=== PATIENT | female | born 1950 | race Caucasian/White ===

== ENCOUNTER → 2016-05-29 | Outpatient (CLI) | payer BC ==
[~2016-05-29] VITALS: Ht 154.9 cm; Wt 69.4 kg
[~2016-05-29] MED LIST: ASPIRIN325 PO; BACTRIM DS TAB1 EACH PO; CELEBREX 200 M200 MG PO; DYRENIUM100 MG PO; FELDENE20 MG PO; FLEXERIL PO; LISINOPRIL10 MG PO; LISINOPRIL5 MG PO; OXYCODONE HCL E10 MG PO; OXYCODONE-ACET1 EACH PO; PERCOCET 5-3251 EACH PO; PERCOCET 7.5-31 EACH PO; PIROXICAM20 MG PO; PREMARIN PO; PREMARIN0.9 MG PO; TRIAMTERENE-HC1 EAC1 PO; VYTORIN 10-401 EACH PO; VYTORIN 10-801 EACH PO; WELCHOL 625 MG625 M1 PO; WELCHOL 625 MG625 MG PO
--- NOTE | ~2016-05-29 | HPC ---
[facility] [address] [place] [address] PAIN MANAGEMENT CONSULTATION Name: ALIREZA CAMARGO Room #: REG Jose Alejandro.#: [id number] Admission: 05/29/16 Attend Phys: Bernardino Mir MD Discharge: Date of : 54 Report #: [id number] THIS REPORT FOR: //name// CC: James Morrow DATE OF SERVICE: 05/29/2016 FOLLOWUP COMPLAINT: "The pain in my arm and down into my finger, which resolved. I am having pain down my leg again and I am going on vacation to [place]." FOLLOWUP HISTORY: The patient is a 65-year-old female who has been seen in the pain clinic in the past because of lumbar radiculopathy and recently had an episode of cervical radiculopathy, which improved after a cervical epidural steroid injection. She continues to have pain and discomfort in the low back area with pain radiating down into her legs. She is having difficulty sleeping. She sleeps sitting in a chair at home because of the pain and discomfort, which affects her low back and radiates down into her right leg and involves her right foot. In the past, epidural steroid injections have been quite helpful in decreasing her pain and discomfort and enabling her to carry on activities of daily living without as much discomfort. She rates her pain today as a 9/10. This is because of the pain in the right hip, down in the right foot and would like to proceed with a lumbar epidural steroid injection given the fact that she is going on vacation in [place] in the next week. PHYSICAL EXAMINATION: Blood pressure was 144/89, pulse 65, respiratory rate 20, room air saturation is 100%. IMPRESSION: 1. Improved cervical radiculopathy with resolution of numbness and tingling in the right arm and right middle finger after cervical epidural steroid injection. 2. Lumbar radiculopathy with pain radiating down into the right leg with numbness, weakness, and tingling and rated at a 9/10. RECOMMENDATIONS: We will proceed with an epidural steroid injection. Risks and benefits of the procedure were again reviewed. The patient elects to proceed. PROCEDURE NOTE: The patient was placed in the prone position. Fluoroscopy was used to identify the L4/L5 interspace. This area had been sterilely prepped with Betadine and infiltrated with 0.25% bupivacaine. A total of 80 mg Depo-Medrol, 40 mg triamcinolone and 2 mL of 0.25% bupivacaine was injected. The patient tolerated the procedure well. There were no complications. About 10 seconds of fluoroscopy time was used. The patient rated her pain as 0 at the time of discharge. Hopefully, she will have a good vacation. [address] [address] PAIN MANAGEMENT CONSULTATION Name: ALIREZA CAMARGO Room #: REG CLI Ashley#: [id number] Admission: 05/29/16 Attend Phys: Bernardino Mir MD Discharge: Date of : 54 Report #: [id number] We would like to thank you for letting us participate in her care. We hope she continues to improve. <ELECTRONICALLY SIGNED> By: Bernardino Mir MD 06/23/16 1018 1530 2044 Bernardino Mir MD /nt
[2016-05-29 13:04] VITALS: BP 144/89
== END ==
LOC: PAIN 07:07
DX: M54.16 Radiculopathy, lumbar region (principal)

== ENCOUNTER → 2016-08-14 | Outpatient (CLI) | payer BC ==
[~2016-08-14] VITALS: Ht 154.9 cm; Wt 67.1 kg
[~2016-08-14] MED LIST changes: +ALEVE PM CAPLE1 EACH PO
--- NOTE | ~2016-08-14 | HPC ---
[facility] [place] [address] [address] [place] [address] PAIN MANAGEMENT CONSULTATION Name: ALIREZA CAMARGO [id number] Admission: 08/14/16 Attend Phys: Bernardino Mir MD Discharge: Date of : 54 Report #: [id number] THIS REPORT FOR: //name// CC: James Morrow DATE OF SERVICE: 08/14/2016 FOLLOWUP COMPLAINT: My right arm and shoulder are really hurting. FOLLOWUP HISTORY: The patient is a 65-year-old female who has been seen in the pain clinic in the past because of lumbar radiculopathy. She has noticed pain and discomfort in her right arm. It radiates down from the anterior deltoid as well as in the middle deltoid area. She is able to lift her arm and moves it around, but notes a significant pain. She states that she lies on the bed at night with her right arm propped over pillow. She does have some difficulty sleeping because of the pain and discomfort. She rates it as a 10/10 at this point. She is still having pain and discomfort in the lower back area, but feels that this pain is overwhelmingly more uncomfortable within that and her lower back. She had a good time when she went on her vacation. This was the first vacation of her life, this was in [place]. She was quite pleased with it. PHYSICAL EXAMINATION: Blood pressure 130/92, pulse 82, respiratory rate 14, room air saturation is 97%. The patient has pain and discomfort in the anterior portion of her right shoulder and area of the long head of the biceps. Palpation in this area causes pain and discomfort which she states is a great portion of the pain she is experiencing. She also has pain and discomfort in the insertion of the deltoid on the humerus on the right side. Palpation in this area reproduces pain and discomfort as well. IMPRESSION: 1. Right shoulder pain in the anterior portion near the insertion of the long head of the biceps. Pain and discomfort in the deltoid area in its insertion on the humerus. RECOMMENDATIONS: We discussed treatment options with the patient. Risks and benefits of an injection were discussed. The patient feels that she would like to undergo an injection. 2. Lumbar radiculopathy reasonably stable at this juncture. RECOMMENDATIONS: We will proceed with a trigger point injection to the deltoid insertion along the humerus as well as in the area of the long head of the biceps tendon on the right. [address] [address] PAIN MANAGEMENT CONSULTATION Name: ALIREZA CAMARGO Room #: REG [facility]#: [id number] Admission: 08/14/16 Attend Phys: Bernardino Mir MD Discharge: Date of : 54 Report #: [id number] PROCEDURE NOTE: These areas were both sterilely prepped with a chlorhexidine solution. They were allowed to dry. Sterile technique was used to inject 10 mL of 0.5% bupivacaine and 40 mg triamcinolone on the deltoid/humerus area. The area of the insertion of the biceps tendon was injected with 10 mL of 0.5% bupivacaine and 40 mg triamcinolone. The patient tolerated the procedure well. Her pain decreased to 0 at the time of discharge. She will follow up in the future as needed. We would like to thank you for letting us participate in her care. We hope she continues to improve. By: 1555 00 Bernardino Mir MD /nt
[2016-08-14 09:15] VITALS: BP 130/92
== END ==
LOC: PAIN 06:47
DX: M25.511 Pain in right shoulder (principal); M54.16 Radiculopathy, lumbar region

== ENCOUNTER → 2016-10-14 | Outpatient (CLI) | payer BC ==
[~2016-10-14] VITALS: Ht 154.9 cm; Wt 65.3 kg
--- NOTE | ~2016-10-14 | HPC ---
[facility] [place] [address] [place] [address] PAIN MANAGEMENT CONSULTATION Name: ALIREZA CAMARGO Room #: REG [facility]#: [id number] Admission: 10/14/16 Attend Phys: Bernardino Mir MD Discharge: Date of : 54 Report #: [id number] THIS REPORT FOR: //name// CC: DIEGO Hassan DATE OF SERVICE: 10/14/2016 FOLLOWUP COMPLAINT: "My pain has really been bad over the last few weeks. I am having trouble sleeping and it is going down into my leg on the left and right side." FOLLOWUP HISTORY: The patient is a 66-year-old female who has been followed in the pain clinic because of lumbar radiculopathy. She greater than 50% improvement after epidural steroid injections. The last one she had was in May. At this juncture, she has noted some pain and discomfort, which has become more problematic. She is having difficulty sleeping and engaging in activities of daily living. She notes pain and discomfort radiating down into her right leg, lateral thigh and down into the calf. She is unable to sleep. She has been waking at night she tries to go sleep. She feels that her pain medications are of little benefit at this juncture secondary to the severity of her pain. PHYSICAL EXAMINATION: Blood pressure is 126/85, pulse 76, respiratory rate 16, room air saturation is 98%. Height 5 feet 1 inch, weight is 65 kilograms, BMI 27.2. The patient has pain and discomfort in the right leg radiating down into the calf and involving her foot. She also has some pain radiating into the left buttocks. IMPRESSION: 1. Exacerbation of lumbar radicular pain, which generally improves greater than 50% after epidural steroid injections. 2. Right shoulder pain, improved. RECOMMENDATIONS: We discussed treatment options with the patient. Risks and benefits of the procedure were explained. Possible complications were discussed. The patient elects to proceed. PROCEDURE NOTE: The patient was placed in the prone position. 0.25% bupivacaine was infiltrated. A 17-gauge Tuohy with loss of resistance technique was used to gain access to the epidural space. There was no CSF, heme or paresthesia. Total of 80 mg Depo-Medrol, 40 mg triamcinolone and 2 mL of 0.25% bupivacaine was injected. The patient tolerated the procedure well. There were [address] [address] PAIN MANAGEMENT CONSULTATION Name: ALIREZA CAMARGO Room #: REG CLJose DocSánchezSuzanne#: [id number] Admission: 10/14/16 Attend Phys: Bernardino Mir MD Discharge: Date of : 54 Report #: [id number] no complications. We would like to thank you for letting us participate in her care. We hope she continues to improve. By: [id number] MD dayday Palmer
[2016-10-14 11:08] VITALS: BP 128/85
== END | disposition home or self-care (01) ==
LOC: PAIN 06:23
DX: M54.16 Radiculopathy, lumbar region (principal); M25.511 Pain in right shoulder

== ENCOUNTER → 2016-11-20 | Outpatient (CLI) | payer BC ==
[~2016-11-20] VITALS: Ht 154.9 cm; Wt 65.3 kg
[~2016-11-20] MED LIST changes: +NORCO 10-325 T1 EACH PO
[2016-11-20 09:51] VITALS: BP 141/89
== END | disposition home or self-care (01) ==
LOC: PAIN 06:54
DX: M54.16 Radiculopathy, lumbar region (principal); M25.511 Pain in right shoulder

== ENCOUNTER → 2016-12-02 | Outpatient (CLI) | payer BC ==
[~2016-12-02] VITALS: Ht 154.9 cm; Wt 63.1 kg
[2016-12-02 13:10] VITALS: BP 128/89
== END | disposition home or self-care (01) ==
LOC: PAIN 07:22
DX: M79.1 Myalgia (principal); G89.29 Other chronic pain; M54.16 Radiculopathy, lumbar region; M25.511 Pain in right shoulder; Z98.890 Other specified postprocedural states; Z79.899 Other long term (current) drug therapy

== ENCOUNTER → 2017-01-20 | Outpatient (CLI) | payer BC ==
[~2017-01-20] VITALS: Ht 154.9 cm; Wt 66.2 kg
--- NOTE | ~2017-01-20 | HPC ---
[facility] [place] [address] [address] PAIN MANAGEMENT CONSULTATION Name: ALIREZA CAMARGO Room #: [facility] [id number] Admission: 01/20/17 Attend Phys: Bernardino Mir MD Discharge: Date of : 54 Report #: [id number] THIS REPORT FOR: //name// CC: James Morrow DATE OF SERVICE: 01/20/2017 FOLLOWUP COMPLAINT: I have got some pain, going down into my right leg. I have had more pain after going to physical therapy. FOLLOWUP HISTORY: The patient is a 66-year-old female who has been seen in the pain clinic because of myofascial pain. She also has lumbar radicular pain. Epidural steroid injections in the past have been helpful. She has going to physical therapy. She feels that on occasions have worsened her pain doing certain exercises. She is going to refrain from doing them for a while to see if things improve. She denies any bowel or bladder dysfunction. Continues to have pain and discomfort in the right low back area with radiation down into the right leg. She has some discomfort in the lateral area of the iliotibial band as well as some discomfort down the lateral portion of her calf. PHYSICAL EXAMINATION: Blood pressure 159/81, pulse 69, respiratory rate 16, room air saturation is 100, height 5 feet 1, weight 145 pounds, BMI is 27. The patient has pain and discomfort which is radiating down to right buttocks into the right leg in the L4-L5 distribution. There is some tenderness with palpation along the lateral portion of her leg in the area of the iliotibial band. IMPRESSION: History of lumbar radiculopathy with exacerbation of the lumbar radicular pain down into the L4-L5 dermatomal reach end of her right leg. RECOMMENDATIONS: We discussed treatment options with the patient. Risks and benefits of an epidural steroid injection were again reviewed. Possible complications were explained. The patient elects to proceed. PROCEDURE NOTE: The patient was placed in the prone position. Fluoroscopy was used to identify the L4-L5 interspace. This area had been sterilely prepped and infiltrated with 0.25% bupivacaine. Total of 80 mg Depo-Medrol, 40 mg triamcinolone and 2 mL of 0.25% bupivacaine was injected. The patient's pain decreased from 10-3 at the time of discharge. She will call us if she has any problems with her treatment. A total of 8 seconds fluoroscopy time was used. [address] [address] PAIN MANAGEMENT CONSULTATION Name: ALIREZA CAMARGO [facility] [id number] Admission: 01/20/17 Attend Phys: Bernardino Mir MD Discharge: Date of : 54 Report #: [id number] We would like to thank you for letting us participate in her care. We hope she continues to improve. By: 1244 [id number] Bernardino Mir MD /
[2017-01-20 08:17] VITALS: BP 159/81
== END ==
LOC: PAIN 06:51
DX: M54.16 Radiculopathy, lumbar region (principal)

== ENCOUNTER → 2017-04-23 | Outpatient (CLI) | payer BC ==
[~2017-04-23] VITALS: Ht 154.9 cm; Wt 60.8 kg
[~2017-04-23] MED LIST changes: +ETODOLAC500 MG PO
--- NOTE | ~2017-04-23 | HPC ---
[facility] [place] [address] [place] [address] PAIN MANAGEMENT CONSULTATION Name: ALIREZA CAMARGO Room #: REG [facility] Javon.#: [id number] Admission: 04/23/17 Attend Phys: Bernardino Mir MD Discharge: Date of : 54 Report #: [id number] THIS REPORT FOR: //name// CC: James Morrow DATE OF SERVICE: 04/23/2017 FOLLOWUP COMPLAINT: Return of pain in the lower portion of the back with pain radiating down into the right leg, numbness, weakness, and tenderness. FOLLOWUP HISTORY: The patient is a 66-year-old female, who has been followed in the pain clinic. As you may recall, she suffers from chronic pain involving lumbar radiculopathy. She generally does pretty well. She has been experiencing more pain in the last few weeks. She rates it as an 8/10. It is in her lower back with "wraps around" the front of both of her thighs, but most problematic on the right leg and down into the ramos. She has some bilateral buttocks and thigh discomfort as well. PHYSICAL EXAMINATION: Blood pressure is 107/80, pulse 96, respiratory rate 16, room air saturation is 96%. Height 5 feet 1 inch, weight 134 pounds, BMI is 25. The patient has not fallen since we saw her last. IMPRESSION: 1. History of lumbar radiculopathy with exacerbation of lumbar radicular pain. 2. History of myofascial pain. 3 History of right shoulder pain. RECOMMENDATIONS: We discussed treatment options with the patient. Risks and benefits of an epidural steroid injection were again reviewed. Possible complications were discussed. The patient elects to proceed with a lumbar epidural steroid injection for pain radiating down the lower portion of her back into the L5-S1 distribution primarily on the right. PROCEDURE NOTE: The patient was placed in the prone position. Fluoroscopy was used to identify the L4-L5 interspace. This area had been sterilely prepped with Betadine. 0.25% bupivacaine was infiltrated. A 17-gauge Tuohy with loss of resistance technique was used to gain access to the epidural space. There was no CSF, heme or paresthesia. Total of 80 mg Depo-Medrol, 40 mg triamcinolone, and 2 mL of 0.25% bupivacaine was injected. The patient's pain decreased from 8-5. Total of 12 seconds fluoroscopy time was used. <ELECTRONICALLY SIGNED> By: Bernardino Mir MD 05/06/17 0945 1246 1812 Bernardino Mir MD /QUENTIN
[2017-04-23 08:48] VITALS: BP 107/80
== END | disposition home or self-care (01) ==
LOC: PAIN 07:00
DX: M54.16 Radiculopathy, lumbar region (principal); G89.29 Other chronic pain; M79.1 Myalgia; M25.511 Pain in right shoulder; Z79.899 Other long term (current) drug therapy; Z79.891 Long term (current) use of opiate analgesic

== ENCOUNTER → 2017-06-18 | Outpatient (CLI) | payer BC ==
[~2017-06-18] VITALS: Ht 154.9 cm; Wt 59.9 kg
[~2017-06-18] MED LIST changes: +CYMBALTA60 MG PO; +EZETIMIBE-SIMV1 EAC3 PO; +IBUPROFEN 800800 M1 PO; +LISINOPRIL-HCT1 EACH PO; +PERIDEX 0.12%473 M1 TP; +XTAMPZA ER9 MG PO
--- NOTE | ~2017-06-18 | HPC ---
[facility] [place] [address] [place] [address] PAIN MANAGEMENT CONSULTATION Name: ALIREZA CAMARGO Room #: REG [facility] Javon.#: [id number] Admission: 06/18/17 Attend Phys: Bernardino Mir MD Discharge: Date of : 54 Report #: [id number] THIS REPORT FOR: //name// CC: James Morrow DATE OF SERVICE: 06/18/2017 CHIEF COMPLAINT: Low back pain that wraps around the front and down into the hip involving both legs in the back to the knees and down into the calves. FOLLOWUP HISTORY: The patient is a 66-year-old female who has been seen in the pain clinic because of lumbar radiculopathy. She also suffers from myofascial pain. She has returned today indicating that her pain has increased. She is having pain and discomfort in the lower portion of her back. Some of the pain radiates down into the groin area and bilaterally down into her hips. Pain which is most disconcerting is that radiating down into both legs to the level of the knee and the lateral aspects of her cast. She feels that this is a 10/10 pain. It is significantly curtailing her ability to engage in activities of daily living. She has returned today for an epidural steroid injection, which has been helpful in the past. Notes that her pain is exacerbated by walking, standing and even sitting. It improves somewhat by repositioning and has improved in the past with epidural steroid injections. She has no new bowel or bladder dysfunction issues. She has returned today for an injection. She finds that her medications continue to be helpful as well. ALLERGIES: No known drug allergies. MEDICATIONS: Reviewed are oxycodone 5/325 one p.o. t.i.d. as needed, etodolac 500 mg b.i.d., oxycodone ER 10 one p.o. b.i.d., Feldene 20 mg daily p.r.n., lisinopril 5 mg daily, Vytorin 10/40 mg daily. PAIN CLINIC ASSESSMENT: 1. History of osteoarthritis. The patient is not being treated for osteoarthritis or Rheumatoid arthritis by a specialist. 2. Height 5 feet 1 inch, weight 132 pounds, BMI is 25. 3. Vital Signs: Blood pressure 109/73, pulse 103, respiratory rate 18, room air saturation 97%. Pain intensity 10/10 4. Fall risk. The patient has not fallen in the last 3 months. She did slip on a wet floor while getting out of the shower. She did not go to see the doctor. She fell on 07/10 back in 2015. 5. The patient is not on blood thinner. 6. History of hypertension. She has been treated for hypertension. 7. Opioid therapy greater than 6 weeks. The patient has an opioid [place] [address] PAIN MANAGEMENT CONSULTATION Name: ALIREZA CAMARGO Room #: REG CARLOTTA Ramirez#: [id number] Admission: 06/18/17 Attend Phys: Bernardino Mir MD Discharge: Date of : 54 Report #: [id number] 8. Risk assessment, low risk 0. 9. Functional assessment tool 52/70 indicating some problems with activities of daily living because of the pain. 10. Recreational drug use. The patient denies use of recreational drugs. Tobacco: The patient has never smoked. Alcohol: The patient denies use of alcoholic beverages. PHYSICAL EXAMINATION: GENERAL: The patient is a well-developed white female. Appearance, age appropriate. Orientation: The patient is alert and oriented x 3. Affect: The patient's affect appears appropriate. HEENT: Normocephalic, atraumatic. Extraocular eye muscles intact. Moist buccal membranes. NECK: Without adenopathy. EXTREMITIES: Upper extremity strength is judged to be 5/5 for the major muscle groups of the upper extremity with symmetry. HEART: Clear to auscultation. Regular rate. ABDOMEN: Nontender. MUSCULOSKELETAL: The patient has some soreness in the low back area. She is having some pain and discomfort in the legs bilaterally. Feels that most of her pain and discomfort is in the L3-L4 distribution. Feels that she would like to undergo an epidural steroid injection to help quell that particular pain. Muscle bulk in the lower extremities, judged to be 5/5. The patient has pain and discomfort in the L4-L5 dermatomal distribution, which is the most problematic today. Again, that was L3-L4 that is most problematic today. IMPRESSION: 1. History of lumbar radiculopathy. Oftentimes, radiating down the L4-L5 lumbar distribution, more in the L3-L4 distribution today. We will proceed with an epidural steroid injection to help decrease the pain in this area. 2. History of Myofascial pain. 3. History of right shoulder pain. 4. Hypertension. RECOMMENDATIONS: We will proceed with a lumbar epidural steroid injection in the L2-L3 and L3-L4 distribution. Risks and benefits of the procedure were discussed with the patient. Possible complications were reviewed. They include but are not limited to infection, increased muscle soreness, headache, bleeding, worsening of pain, no improvement in pain, nerve trauma, or spinal headache. The patient was then taken to the procedure area. PROCEDURE NOTE: The patient was placed in the prone position. After appropriate positioning 0.25% bupivacaine was used to target the L3-L4 interspace. This area had been sterilely prepped with Betadine and infiltrated with 0.25% bupivacaine. Total of 80 mg Depo-Medrol, 40 mg triamcinolone, and 2 mL of 0.25% bupivacaine was injected. The patient tolerated the procedure well. [address] [address] PAIN MANAGEMENT CONSULTATION Name: MARY JOALIREZA CLAUDY Room #: REG CLI [facility]#: [id number] Admission: 06/18/17 Attend Phys: Bernardino Mir MD Discharge: Date of : 54 Report #: [id number] There were no complications. She remained in the pain clinic for an appropriate amount of time. She will follow up in the future as needed. We would like to thank you for letting us participate in her care. We hope she continues to improve. <ELECTRONICALLY SIGNED> By: Bernardino Mir MD 08/13/17 0823 1632 [id number] Bernardino Mir MD /QUENTIN
[2017-06-18 12:38] VITALS: BP 109/73
== END | disposition home or self-care (01) ==
LOC: PAIN 06:54
DX: M54.16 Radiculopathy, lumbar region (principal); M79.1 Myalgia; M25.511 Pain in right shoulder; I10 Essential (primary) hypertension; Z79.891 Long term (current) use of opiate analgesic; Z79.899 Other long term (current) drug therapy

== ENCOUNTER → 2017-10-22 | Outpatient (CLI) | payer OTHER ==
[~2017-10-22] VITALS: Ht 154.9 cm; Wt 64.9 kg
[~2017-10-22] MED LIST changes: -IBUPROFEN 800800 M1 PO
--- NOTE | ~2017-10-22 | HPC ---
[facility] [place] [address] PAIN MANAGEMENT CONSULTATION Name: ALIREZA CAMARGO Room #: REG CARLOTTA Javon.#: [id number] Admission: 10/22/17 Attend Phys: Bernardino Mir MD Discharge: Date of : 54 Report #: [id number] THIS REPORT FOR: //name// CC: James Morrow DATE OF SERVICE: 10/22/2017 FOLLOWUP COMPLAINT: Here for medication renewal. The insurance company want to continue to pay for my OxyContin. FOLLOWUP HISTORY: The patient is a 67-year-old female who has been followed in the pain clinic because of chronic pain. She has pain and discomfort because of lumbar radiculopathy. She has undergone epidural steroid injections and finds these are beneficial. Has pain that radiates down into the L4-L5 distribution. She finds that use of OxyContin has been beneficial as well. She has gotten a letter from her insurance company indicating that they would no longer cover OxyContin. She has been given an alternative medication of Xtampza to try. She has returned today for a prescription for this medication. Finds that the oxycodone/Tylenol continued to be helpful. She takes these medications as prescribed. ALLERGIES: No known drug allergies. CURRENT MEDICATIONS: Oxycodone 5/325 one p.o. t.i.d., etodolac 500 mg b.i.d., oxycodone ER 10 mg 1 p.o. b.i.d., Feldene 20 mg daily p.r.n., Lasix, lisinopril 5 mg daily, Vytorin 40 mg/40 mg daily. PAIN CLINIC ASSESSMENT: 1. The patient is not being treated for osteoarthritis or rheumatoid arthritis. 2. Height 5 feet 1 inch, weight 143 pounds, BMI is 24. 3. Vital signs: Blood pressure 131/80, pulse 85, respiratory rate 16, room air saturation is 96%. 4. Pain intensity 12/24. 5. Fall risk. The patient has not fallen in the last 3 months. 6. Blood thinner. The patient is not on a blood thinning medication. 7. History of hypertension. The patient is being treated for hypertension. 8. Opioid therapy greater than 6 weeks. The patient is on an opioid contract with the pain clinic and gets her medication from one source. 9. Risk assessment tool, low risk of 0. 10. Functional assessment tool 52/70 showing moderate impact of pain on her activities of daily living. 11. Recreational drug use. The patient denies use of recreational drugs. 12. Tobacco: The patient has never smoked. 13. Alcohol: The patient denies use of alcoholic beverages. [address] [address] PAIN MANAGEMENT CONSULTATION Name: ALIREZA CAMARGO CLAUDY Room #: REG CLI [facility].#: [id number] Admission: 10/22/17 Attend Phys: Bernardino Mir MD Discharge: Date of : 54 Report #: [id number] PHYSICAL EXAMINATION: GENERAL: The patient is a well-developed, well-nourished white female. She appears her stated age. She is alert and oriented x 3. Her affect is appropriate. HEENT: Normocephalic, atraumatic. Extraocular eye muscles intact. Sclerae nonicteric. Mucous membranes are moist. Hearing is within normal limits. NECK: Without adenopathy or JVD. CHEST: Clear to auscultation. ABDOMEN: Nontender. HEART: Regular rate. S1, S2. MUSCULOSKELETAL: The patient has some soreness in the lower portion of her back. Has some pain that radiates down posterior portion of her legs in the L4-L5 distribution. Muscle strength is judged to be 5/5 with symmetry. There is no significant scoliosis, kyphosis or lordosis in the back. IMPRESSION: 1. History of lumbar radiculopathy treated with epidural steroid injections and complex medical management using opioids. 2. Myofascial pain. 3. History of right shoulder pain. 4. Hypertension. RECOMMENDATIONS: We discussed treatment options with the patient. Overall, she feels that her medications are helpful. Finds that the OxyContin is beneficial. The patient received an information from her insurance company that she should try a different medication. She will try Xtampza, which is an opioid product. It is similar to OxyContin. She will be given a script for this medication. She will try it over the next month. Hopefully, she finds that this medication works as well as OxyContin. We would then reevaluate the situation in a month. If she finds that it is working reasonably well, we would convert her to this medication. If not, we will try the next alternative that her insurance company has proposed. We would like to thank you for letting us participate in her care. We hope she continues to improve. <ELECTRONICALLY SIGNED> By: Bernardino Mir MD 10/27/17 [id number] Bernardino Mir MD /QUENTIN
[2017-10-22 11:40] VITALS: BP 131/80
== END ==
LOC: PAIN 07:09
DX: G89.29 Other chronic pain (principal); M54.16 Radiculopathy, lumbar region; I10 Essential (primary) hypertension; M79.1 Myalgia; F11.90 Opioid use, unspecified, uncomplicated

== ENCOUNTER → 2017-11-19 | Outpatient (CLI) | payer OTHER ==
[~2017-11-19] VITALS: Ht 154.9 cm; Wt 64.0 kg
--- NOTE | ~2017-11-19 | HPC ---
[facility] [place] [address] PAIN MANAGEMENT CONSULTATION Name: ALIREZA CAMARGO [facility] #: [facility] [id number] Admission: 11/19/17 Attend Phys: Bernardino Mir MD Discharge: Date of : 54 Report #: [id number] THIS REPORT FOR: //name// CC: James Mir DATE OF SERVICE: 11/19/2017 FOLLOWUP COMPLAINT: "Here for treatment. I have pain in the right leg." FOLLOWUP HISTORY: The patient is a 67-year-old female who has been followed in the Pain Clinic. She suffers from lumbar radiculopathy and has undergone epidural steroid injections in the past. At this juncture, she is noticing pain that radiates from her low back to the left hip area. Palpation of the left hip area can cause significant pain and discomfort and reproduces her discomfort. She feels that her current medications of Percocet and Xtampza are helpful. She does tolerate them reasonably well and would like to continue with her medications. She would like to have the prescription renewed today. ALLERGIES: No known drug allergies. CURRENT MEDICATIONS: Oxycodone 5/325s one p.o. t.i.d., etodolac 500 mg b.i.d., Xtampza 9 mg, Feldene 20 mg daily, Lasix, lisinopril 5 mg, Vytorin 40 mg. PAIN CLINIC ASSESSMENT: 1. The patient is not being treated for osteoarthritis or rheumatoid arthritis. 2. Height 5 feet 1 inch, weight 141 pounds, BMI is 26. 3. Vital Signs: Blood pressure 159/96, pulse 68, respiratory rate 14, room air saturation 98%. 4. Pain intensity: 8/10. 5. Fall risk: The patient has not fallen in the last 3 months. 6. Blood thinner: The patient is not on a blood thinning medication. 7. Hypertension: The patient is being treated for hypertension. 8. Opioid therapy greater than 6 weeks: The patient is receiving her medications from the Pain Clinic and has signed a contract. 9. Risk assessment tool: Low for use of opioid medication. 10. Functional assessment tool: 52/70 in the past. 11. Recreational drugs: Denies use of recreational drugs. 12. Tobacco: The patient denies use of tobacco. 13. Alcoholic beverages: The patient denies use of alcoholic beverages. PHYSICAL EXAMINATION: GENERAL: The patient is a well-developed white female. She appears her stated age. She is alert and oriented x 3. She appears stable. Her affect is appropriate. HEENT: Normocephalic, atraumatic. Extraocular eye muscles [place] [address] PAIN MANAGEMENT CONSULTATION Name: ALIREZA CAMARGO Room #: REG CLJose Ramirez#: [id number] Admission: 11/19/17 Attend Phys: Bernardino Mir MD Discharge: Date of : 54 Report #: [id number] nonicteric. Mucous membranes are moist. Hearing is within normal limits. NECK: Without adenopathy or JVD. Good range of motion. CHEST: Clear to auscultation. ABDOMEN: Nontender. HEART: Rate S1, S2. MUSCULOSKELETAL: The patient has some soreness in the right greater trochanteric area as well as some pain and discomfort in the lower portion of her gluteus caryl. Palpation in this area does reproduce the patient's pain when she is lying in the left decubitus position. The patient states that this is a large component of the pain and discomfort she is experiencing at this point. IMPRESSION: 1. Right greater trochanteric bursitis. 2. History of lumbar radicular pain, treated with epidural steroid injection. 3. Complex medical management, using opioids. 4. Myofascial pain. 5. Right shoulder pain. 6. Hypertension. RECOMMENDATIONS: We discussed treatment options with the patient. At this juncture, we will continue with her current medications. She feels that the conversion to Xtampza is adequate. She is taking the medication as prescribed. She is having no problems with them. She does note some pain and discomfort in the right greater trochanteric area. Palpation reproduces that discomfort. The patient would like to proceed with an injection of the greater trochanteric bursa. We discussed treatment options with the patient. Risks and benefits of the procedure were explained. Possible complications of the procedure, which could include infection, worsening of pain, no improvement in pain were discussed. The patient elects to proceed given her pain is quite problematic. PROCEDURE NOTE: The patient was placed in the left lateral decubitus position. The right trochanteric area was sterilely prepped with a chlorhexidine solution and allowed to dry. A 25-gauge spinal needle was then advanced into the area of the right greater trochanteric bursa. The patient states that this did reproduce her discomfort. A total of 10 mL of 0.5% bupivacaine and 80 mg Depo-Medrol was injected. The patient tolerated the procedure well. She remained in the Pain Clinic for an appropriate amount of time. She will follow up in the future as needed. We would like to thank you for letting us participate in her care. We hope she continues to improve. By: [phone] MD dayday Palmer
[2017-11-19 10:47] VITALS: BP 159/96
== END | disposition home or self-care (01) ==
LOC: PAIN 06:54
DX: M70.61 Trochanteric bursitis, right hip (principal); M54.16 Radiculopathy, lumbar region; M25.511 Pain in right shoulder; M79.1 Myalgia; I10 Essential (primary) hypertension; Z79.899 Other long term (current) drug therapy; Z98.890 Other specified postprocedural states; Z79.891 Long term (current) use of opiate analgesic

== ENCOUNTER → 2018-02-04 | Outpatient (CLI) | payer OTHER ==
[~2018-02-04] VITALS: Ht 157.5 cm; Wt 62.1 kg
[~2018-02-04] MED LIST changes: +IBUPROFEN 800800 M1 PO
--- NOTE | ~2018-02-04 | HPC ---
[facility] [place] [address] PAIN MANAGEMENT CONSULTATION Name: ALIREZA CAMARGO Room #: REG [facility].#: [id number] Admission: 02/04/18 Attend Phys: Bernardino Mir MD Discharge: Date of : 54 Report #: [id number] THIS REPORT FOR: //name// CC: James Morrow DATE OF SERVICE: 02/04/2018 PRIMARY CARE PHYSICIAN: James Franco D.O. FOLLOWUP HISTORY: Low back pain in the hips and buttocks. FOLLOWUP HISTORY: The patient is a 67-year-old female who has been followed in the pain clinic because of chronic pain involving her back as well as pain and discomfort in her hips. She has undergone injections in the trigger point areas in the past and gleaned benefits from these. She has returned today indicating that she is having more pain involving the low back area with pain that is involving her hips bilaterally. She has undergone bursa injections in the past and gleaned those to be beneficial. Rates her pain as an 8/10. Notes that pain is worse with walking, sitting and sleeping. She would like to undergo a trigger point injection/injections to the left and right hip area. ALLERGIES: No known drug allergies. CURRENT MEDICATIONS: Oxycodone 5/325 mg 1 p.o. t.i.d., etodolac 500 mg b.i.d., Xtampza 9 mg, Feldene 20 mg daily, Lasix, lisinopril 5 mg, Vytorin 40 mg. PAIN CLINIC ASSESSMENT AND PQRS: 1. The patient is not being treated for osteoarthritis or rheumatoid arthritis. 2. Height 5 feet 1 inch, weight 137 pounds, BMI is 25. 3. Blood pressure 122/77, pulse 74, respiratory rate 16, room air saturation 96%. 4. Pain intensity 12/24. 5. Fall risk. The patient has not fallen in the last 3 months. 6. Blood thinner. The patient is not on a blood thinning medication. 7. Hypertension. The patient is being treated for hypertension. 8. Opioid therapy greater than 6 weeks. The patient receives her medications through the pain clinic. 9. Risk assessment. Low risk zero for opioid medications. 10. Functional assessment tool: . 11. Recreational drug use: The patient denies. 12. Tobacco: The patient has never smoked. 13. Alcohol: The patient denies use of alcoholic beverages. PHYSICAL EXAMINATION: [facility] [address] [place] [address] PAIN MANAGEMENT CONSULTATION Name: ALIREZA CAMARGO Room #: REG [facility]#: [id number] Admission: 02/04/18 Attend Phys: Bernardino Mir MD Discharge: Date of : 54 Report #: [id number] GENERAL: The patient is a well-developed, well-nourished, white female. Appears her stated age. She is alert and oriented x 3. Her affect is appropriate. Speech is fluent. HEENT: Normocephalic, atraumatic. Extraocular eye muscles intact. Sclerae nonicteric. Mucous membranes are moist. Hearing is within normal limits. NECK: Without adenopathy or JVD. Good range of motion. CHEST: Clear to auscultation. ABDOMEN: Nontender. HEART: Regular rate. S1, S2. MUSCULOSKELETAL: With some soreness in the left as well as the right greater trochanteric area. Palpation in these areas reproduce a significant amount of her discomfort. IMPRESSION: 1. Right and left greater trochanteric bursitis. 2. History of lumbar radicular pain treated with epidural steroid injections. 3. Chronic medical management, using opioid medications. 4. Myofascial pain. 5. Right shoulder pain. 6. Hypertension. RECOMMENDATIONS: We discussed treatment options with the patient. At this juncture, she has been experiencing pain and discomfort in her intertrochanteric areas bilaterally. Notes that the pain is quite problematic. It is slowing down her ability to engage in activities of daily living. She has undergone injections in this area in the past and gleaned benefits from this. She has returned today for an injection in the affected area. She also would like to have her medications renewed for Xtampza and oxycodone. We discussed treatment option of a trigger point with the patient. Possible complications, which could include infection, increased muscle soreness, worsening of pain, no improvement in pain were discussed and the patient elects to proceed. PROCEDURE NOTE: The patient was placed in the left lateral decubitus position with her right hip in the up position. This area was sterilely prepped with a chlorhexidine solution. A trigger point was noted in the area of the greater trochanteric area. A 25-gauge needle was then advanced to the area of discomfort. The patient states this reproduced her discomfort. A total of 10 mL of 0.5% bupivacaine and 40 mg triamcinolone was injected. The patient was then changed the left hip in the upward position. This area was sterilely prepped with a chlorhexidine solution. A 25-gauge needle was then advanced into the left trochanteric area. The patient states this reproduced her discomfort. A total of 8 mL of 0.5% bupivacaine and 40 mg triamcinolone was injected. The patient tolerated the procedure well. Scripts for oxycodone and Xtampza were written. The patient was also given a script for Percocet 5/325 mg 1 p.o. [facility] [address] [place] [address] PAIN MANAGEMENT CONSULTATION Name: ALIREZA CAMARGO [facility] [id number] Admission: 02/04/18 Attend Phys: Bernardino Mir MD Discharge: Date of : 54 Report #: [id number] t.i.d. We would like to thank you for letting us participate in her care. We hope she continues to improve. <ELECTRONICALLY SIGNED> By: Bernardino Mir MD 02/28/18 [id number] Bernardino Mir MD /PMT
[2018-02-04 14:44] VITALS: BP 122/77
== END | disposition home or self-care (01) ==
LOC: PAIN 07:07
DX: M71.552 Other bursitis, not elsewhere classified, left hip (principal); M71.551 Other bursitis, not elsewhere classified, right hip; I10 Essential (primary) hypertension; G89.29 Other chronic pain; M79.1 Myalgia; Z79.899 Other long term (current) drug therapy; Z79.891 Long term (current) use of opiate analgesic; Z98.890 Other specified postprocedural states

== ENCOUNTER → 2018-03-16 | Outpatient (CLI) | payer OTHER ==
[~2018-03-16] VITALS: Ht 157.5 cm; Wt 62.8 kg
--- NOTE | ~2018-03-16 | HPC ---
[facility] [place] [address] PAIN MANAGEMENT CONSULTATION Name: ALIREZA CAMARGO Room #: REG CARLOTTA Ashley#: [id number] Admission: 03/16/18 Attend Phys: Bernradino Mir MD Discharge: Date of : 54 Report #: [id number] THIS REPORT FOR: //name// CC: James Morrow DATE OF SERVICE: 03/16/2018 FOLLOWUP COMPLAINT: Pain is going down into my back, leg, down into the hips. I would like to get an epidural injection. HISTORY: The patient is a 67-year-old female who has been followed in the Pain Clinic because of chronic pain. She has pain and discomfort in the lower portion of her back as well as pain down into her buttocks. She has undergone epidural steroid injections in the past. She has also had some pain and discomfort involving her greater trochanteric areas in the past. At this juncture, she is having pain that is most problematic in the lower portion of her back and radiating down into the front of her right leg and involves the foot. Rates the pain as a 10/10. Walking, sitting, standing, sleeping are all significantly problematic. She has a deep ache in the low back area. She has undergone epidural steroid injections and when she has had pain like this in the past, it has improved. She would like to proceed with an epidural steroid injection to help quell the pain. ALLERGIES: No known drug allergies. CURRENT MEDICATIONS: Oxycodone 5/325 one p.o. t.i.d., etodolac 500 mg b.i.d., Xtampza 9 mg, Feldene 20 mg, Lasix, lisinopril 5 mg, and Vytorin 40 mg. PAIN CLINIC ASSESSMENT/PQRS. 1. The patient is not being treated for osteoarthritis or rheumatoid arthritis. 2. Height 5 feet 1 inch, weight 138 pounds, BMI is 25. 3. Vital signs; blood pressure 126/86, pulse 109, respiratory rate 97. 4. Pain intensity is 10/10. 5. Fall risk. The patient has not fallen in the last 3 months. 6. Blood thinner. The patient is not on her blood thinning medication. 7. Hypertension. The patient is being treated for hypertension. 8. Opioid. The patient is receiving her medications from one source, the Pain Clinic. 9. Risk assessment tool, low risk for opioids. 10. Functional assessment tool 52-70. 11. Recreational drug use, the patient denies. 12. Tobacco: The patient has never smoked. 13. Alcohol: The patient denies use of alcoholic beverages. [address] [address] PAIN MANAGEMENT CONSULTATION Name: ALIREZA CAMARGO Room #: REG CARLOTTA Ramirez#: [id number] Admission: 03/16/18 Attend Phys: Bernardino Mir MD Discharge: Date of : 54 Report #: [id number] PHYSICAL EXAMINATION: GENERAL: The patient is a well-developed and well-nourished white female. Appears her stated age. She is alert and oriented x 3. Her affect is appropriate. Speech is fluent. HEENT: Normocephalic and atraumatic. Extraocular eye muscles intact. Sclerae nonicteric. NECK: Without adenopathy or JVD. CHEST: Clear to auscultation. HEART: Regular rate. S1, S2. ABDOMEN: Nontender. Bowel sounds present. MUSCULOSKELETAL: Without significant scoliosis, kyphosis, or lordosis. The patient has pain and discomfort, which radiates down into the right leg with numbness, tingling, and discomfort in the L4-L5 dermatomal distribution. IMPRESSION: 1. Right lumbar radiculopathy. 2. History of greater trochanteric bursitis. 3. Chronic medical management using opioid medication. 4. Myofascial pain. 5. Right shoulder pain. 6. Hypertension. RECOMMENDATIONS: We discussed treatment options with the patient. Risks and benefits of an epidural steroid injection were again reviewed. They include but are not limited to infection, increased muscle soreness, no improvement in pain, weakness, and paralysis. The patient elects to proceed. PROCEDURE NOTE: The patient was taken to the procedure area. She was assisted in getting on the examination table. She was placed in the prone position. Her back was sterilely prepped with a Betadine solution. A pillow was placed on her abdomen to bolster and improve positioning. Fluoroscopy using anterior, posterior as well as lateral viewing was implemented. The patient's back had been sterilely prepped with Betadine. A 25-gauge needle with local anesthetic was injected in the right paracentral approach at L4-L5. A 17-gauge Tuohy with loss of resistance technique was used to gain access to the epidural space. There was no CSF, heme or paresthesia. A total of 80 mg Depo-Medrol, 40 mg triamcinolone and 2 mL of 0.25% bupivacaine was injected. The patient ____ time. The pain decreased from 10-2 at the time of discharge. She will follow up in the future as needed. We would like to thank you for letting us participate in her care. We hope she continues to improve. By: [id number] MD dayday Palmer
[2018-03-16 13:07] VITALS: BP 126/86
== END | disposition home or self-care (01) ==
LOC: PAIN 06:54
DX: M54.16 Radiculopathy, lumbar region (principal); M79.10 Myalgia, unspecified site; I10 Essential (primary) hypertension; M25.511 Pain in right shoulder; Z87.39 Personal history of other diseases of the musculoskeletal system and connective tissue; Z79.891 Long term (current) use of opiate analgesic; Z98.890 Other specified postprocedural states; Z79.899 Other long term (current) drug therapy

== ENCOUNTER → 2018-04-01 | Outpatient (CLI) | payer OTHER ==
[~2018-04-01] VITALS: Ht 157.5 cm; Wt 65.3 kg
[2018-04-01 13:33] VITALS: BP 138/86
== END | disposition home or self-care (01) ==
LOC: PAIN 03-30 07:27
DX: M54.5 Low back pain (principal)

== ENCOUNTER → 2018-06-17 | Outpatient (CLI) | payer OTHER ==
[~2018-06-17] VITALS: Ht 157.5 cm; Wt 65.6 kg
[~2018-06-17] MED LIST changes: +LEXAPRO 10 MG T10 M1 PO; +LIPITOR 20 MG T20 M1 PO; +OMEPRAZOLE 20 M20 M1 PO; +TRAZODONE HCL100 MG PO
--- NOTE | ~2018-06-17 | HPC ---
[facility] [place] [address] PAIN MANAGEMENT CONSULTATION Name: ALIREZA CAMARGO Room #: REG [facility] Doc.#: [id number] Admission: 06/17/18 Attend Phys: Bernardino Mir MD Discharge: Date of : 54 Report #: [id number] THIS REPORT FOR: //name// CC: James Mir DATE OF SERVICE: 06/17/2018 CHIEF COMPLAINT: "Here for an injection in my back that is really sore." HISTORY: The patient is a 67-year-old female who has been followed in the Pain Clinic because of chronic pain. She does have history of lumbar radicular pain. She has returned today with complaint of pain in the lower portion of her back. Feels that, she is having more pain and discomfort when she is doing her "chores. Feels that her low back "hangs up on something." Has had massage therapy. Has had some improvement when they worked on her trigger point. She rates her pain as a 10/10 today. It is limiting her ability to engage in activities of daily living in both her low back, describes it as sharp and shooting. It is exacerbated when she is walking, standing, bending. Use of medications and heat have been helpful. ALLERGIES: No known drug allergies. CURRENT MEDICATIONS: Oxycodone 5/325 one p.o. t.i.d., etodolac 500 mg b.i.d., Xtampza 9 mg, Feldene 20 mg, Lasix, lisinopril 5 mg, and Vytorin 40 mg. PAIN CLINIC ASSESSMENT/PQRS: 1. The patient is not being treated for rheumatoid arthritis. The patient does have some arthritic changes in her hips. 2. Height 5 feet 2 inches, weight is 144 pounds, BMI is 26. 3. Vital signs: Blood pressure 125/79, pulse 113, respiratory rate 16, room air saturation 96%. 4. Pain intensity 02/23. 5. Fall history. The patient has not fallen in the last 3 months. 6. Blood thinner. The patient is not on a blood thinning medication. 7. Hypertension. The patient is being treated for hypertension. 8. Opioids greater than 6 weeks. The patient receives all her medication from one source, the Pain Clinic. 9. Risk assessment tool, low for opioid use. 10. Functional assessment tool 52/70. 11. Recreational drug use. The patient denies use of recreational drugs. 12. Tobacco: The patient does not smoke. 13. Alcohol: The patient denies frequent use of alcoholic beverages. PHYSICAL EXAMINATION: GENERAL: The patient is a well-developed, well-nourished white female. Appears [address] [address] PAIN MANAGEMENT CONSULTATION Name: ALIREZA CAMARGO CLAUDY [id number] Admission: 06/17/18 Attend Phys: Bernardino Mir MD Discharge: Date of : 54 Report #: [id number] her stated age. She is alert and oriented x 3. Her affect is appropriate. Speech is fluent. HEENT: Normocephalic, atraumatic. Extraocular eye muscles intact. Sclerae nonicteric. Mucous membranes are moist. NECK: Without adenopathy or JVD. The patient is wearing glasses. LUNGS: Clear to auscultation without rhonchi or rales. HEART: Regular rate. S1, S2. ABDOMEN: Nontender. Bowel sounds present. MUSCULOSKELETAL: Without significant scoliosis, kyphosis or lordosis. The patient has pain and discomfort in the lower portion of her back near the posterior superior iliac spine in the area of the gluteus caryl. Palpation in this area does reproduce a significant portion of her pain. IMPRESSION: 1. History of bilateral hip pain with pain that radiates into her groin. 2. Myofascial pain, low portion of back. 3. History of lumbar radiculopathy, L4-L5 dermatomal distribution. 4. Chronic pain managed with opioid medication. 5. Myofascial pain. 6. Right shoulder pain. 7. Hypertension. RECOMMENDATIONS: We discussed treatment options with the patient. Risks and benefits of trigger point injections were discussed. They include possible complications, which could involve bleeding, worsening of pain, no improvement in pain, nerve damage and the patient elects to proceed. PROCEDURE NOTE: The patient was placed in the sitting position. Her back was sterilely prepped with a chlorhexidine solution and allowed to dry. A trigger point was noted in the left low back area. A 25-gauge needle was then advanced into the area of discomfort. Aspiration was negative. A total of 80 mg Depo-Medrol, 10 mL of 0.5% bupivacaine was injected. The patient had been placed in the sitting position. Her back was sterilely prepped. Her pain decreased to 0 at the time of discharge. She will follow up in the future as needed. We would like to thank you for letting us participate in her care. We hope she continues to improve. By: 01 20 Bernardino Mir MD /jennifer
[2018-06-17 10:30] VITALS: BP 125/79
--- NOTE | 2018-06-17 10:36 | NUR ---
Pain Clinic Assessment: 1. History of Osteoarthritis: Not Applicable History of Rheumatoid Arthritis: Not Applicable 2. Height: 5 ft. 2 in. 157.5 cm. Weight: 144.6 lb. oz. 65.590 kg. Patient's BMI: 26.4 3. Vital Signs: BP: 125/79 Pulse: 113 Resp: 16 Temp: 02 Sat: 96 ECG Mon: 4. Pain Intensity: 10 5. Fall Risk: Dizziness: Y Needs help standing or walking: N Fallen in the last 3 months: N Fall risk comments: 6. Patient on Blood Thinner: None 7. History of Hypertension: Y 8. Opioid Therapy greater than 6 weeks: Y Opiate Contract Signed: 11/07/15 9. Risk Assessment Tool Provided: LOW RISK 0/0 10. Functional Assessment Tool: 11. Recreational Drug Use: Never Drug Type: Tobacco Use: Never Smoker Tobacco Type: Amount or Packs/day: How Many Years: Alcohol Use: No Frequency: Quant:
== END | disposition home or self-care (01) ==
LOC: PAIN 05-18 08:53
DX: M79.18 Myalgia, other site (principal); G89.29 Other chronic pain; M25.511 Pain in right shoulder; M25.551 Pain in right hip; M25.552 Pain in left hip; M54.16 Radiculopathy, lumbar region; I10 Essential (primary) hypertension; Z79.891 Long term (current) use of opiate analgesic; Z79.899 Other long term (current) drug therapy; Z98.890 Other specified postprocedural states

== ENCOUNTER → 2018-07-20 | Outpatient (CLI) | payer OTHER ==
[~2018-07-20] VITALS: Ht 157.5 cm; Wt 65.9 kg
[2018-07-20 09:10] VITALS: BP 104/71
--- NOTE | 2018-07-20 09:36 | NUR ---
Pain Clinic Assessment: 1. History of Osteoarthritis: Not Applicable History of Rheumatoid Arthritis: Not Applicable 2. Height: 5 ft. 2 in. 157.5 cm. Weight: 145.2 lb. oz. 65.862 kg. Patient's BMI: 26.6 3. Vital Signs: BP: 104/71 Pulse: 96 Resp: 20 Temp: 02 Sat: 100 ECG Mon: 4. Pain Intensity: 1-NOW, DAILY AVG-10 5. Fall Risk: Dizziness: Y Needs help standing or walking: N Fallen in the last 3 months: N Fall risk comments: 6. Patient on Blood Thinner: None 7. History of Hypertension: Y 8. Opioid Therapy greater than 6 weeks: Y Opiate Contract Signed: 11/07/15 9. Risk Assessment Tool Provided: LOW RISK 0/0 10. Functional Assessment Tool: 11. Recreational Drug Use: Never Drug Type: Tobacco Use: Never Smoker Tobacco Type: Amount or Packs/day: How Many Years: Alcohol Use: No Frequency: Quant:
--- NOTE | 2018-07-20 11:26 | NUR ---
PT STATES SHE IS FEELING SUICIDAL, AND THAT WOULD LIKE TO END IT ALL BECAUSE OF THE PAIN. PT STATES HER IS NOT SUPPORTIVE AND CAUSES HER MORE STRESS. PT HAS CALLED THE CLINIC IN THE RECENT PAST STATING FEEING LIKE SHE WANTED TO KILL HERSELF, BUT THEN STATED SHE DIDN'T MEAN THIS. DR FARIAS WAS NOTIFIED OF THE PT SAYING THIS TODAY. DR FARIAS DECREASED THE AMOUNT OF MEDCIATION THE PT IS RECIEVING AND ONLY GAVE THE PT A 2 WEEK SUPPLY. PT WAS GVIEN INFORMATION FOR THE [facility] AND INSTRUCTED TO CALL AND SCHEDULE AN APPT WITH A PSYCHOLOGIST THERE BEFORE HER NEXT 2 WEEK APPT. SPENT OVER 30 MIN TALKING WITH PT ABOUT NEED FOR SUPPORT SYSTEM AND A PERSON TO TALK TO WHEN FEELING OVERWHELMED. PT GRATEFUL FOR THE HELP AND INFORMATION AND WILL CALL FOR AN APPT BEFORE 08/03/18.
== END ==
LOC: PAIN 06:52
DX: M54.5 Low back pain (principal); I10 Essential (primary) hypertension; Z79.891 Long term (current) use of opiate analgesic

== ENCOUNTER → 2018-08-03 | Outpatient (CLI) | payer OTHER ==
[~2018-08-03] VITALS: Ht 154.9 cm; Wt 67.0 kg
[2018-08-03 12:32] VITALS: BP 117/83
--- NOTE | 2018-08-03 12:35 | NUR ---
Pain Clinic Assessment: 1. History of Osteoarthritis: Not Applicable History of Rheumatoid Arthritis: Not Applicable 2. Height: 5 ft. 1 in. 154.9 cm. Weight: 147.6 lb. oz. 66.951 kg. Patient's BMI: 27.9 3. Vital Signs: BP: 117/83 Pulse: 87 Resp: 16 Temp: 02 Sat: 97 ECG Mon: 4. Pain Intensity: 8 5. Fall Risk: Dizziness: N Needs help standing or walking: N Fallen in the last 3 months: N Fall risk comments: 6. Patient on Blood Thinner: None 7. History of Hypertension: Y 8. Opioid Therapy greater than 6 weeks: Y Opiate Contract Signed: 11/07/15 9. Risk Assessment Tool Provided: LOW RISK 0/0 10. Functional Assessment Tool: 11. Recreational Drug Use: Never Drug Type: Tobacco Use: Never Smoker Tobacco Type: Amount or Packs/day: How Many Years: Alcohol Use: No Frequency: Quant:
--- NOTE | 2018-08-10 08:28 | HPC ---
[facility] [address] [address] PAIN MANAGEMENT CONSULTATION Name: ALIREZA CAMARGO Room #: REG CAR[facility]OTTA Ramirez#: [id number] Admission: 08/03/18 ������������������ Attend Phys: Bernardino Mir MD Discharge: ������������������ Date of : 54 Report #: [id number] THIS REPORT FOR: //name// CC: James Mir DATE OF SERVICE: 08/03/2018 CHIEF COMPLAINT: Here for pain medication HISTORY OF PRESENT ILLNESS: The patient is a 67-year-old lady who has been followed in the pain clinic for quite a number of years. She has chronic pain. She finds that the pain can be quite problematic. She has been somewhat depressed. She states that her antidepressive medication has been changed. She feels that, that has improved things somewhat. She continued to have pain, which is problematic. We had her go to the [facility]. Again, this is a clinic that helps and encourages patients to be less dependent on opioid medications and to help manage their pain better. She was recommended to follow up with them once a week, 8-week program. The option was left for her to go as well. The patient states that she is feeling less depressed. She is still troubled/unhappy that her of 40 years does not pay as much attention to her as she would like. She is unable to keep her house in the fashion she was accustomed when she was younger. Now that she has grown older, she finds it more painful cleaning up after him. It is recommended that she continue with medical management. She has returned today for renewal of her medications. ALLERGIES: No known drug allergies. CURRENT MEDICATIONS: Oxycodone 5/325 1 p.o. t.i.d., etodolac 500 mg b.i.d., Xtampza 9 mg, Feldene 20 mg, Lasix, lisinopril 5 mg, Vytorin 40 mg. PAIN CLINIC ASSESSMENT AND PQRS: 1. The patient is not being treated for rheumatoid arthritis. She does have some complaints of arthritis in her hips. 2. Height 5 feet 1 inch, weight 147 pounds, BMI 27.9. 3. Vital Signs: Blood pressure 117/83, pulse 87, respiratory rate 16, room air saturation is 97%. 4. Pain intensity, 12/24. 5. Fall history. The patient has not fallen in the last 3 months. 6. Blood thinner. The patient is not on a blood thinning medication. 7. Hypertension. The patient is being treated for hypertension. 8. Opioids greater than 6 weeks. The patient receives her medication from one source, pain clinic. 9. Risk assessment tool, moderate for opioid use. 10. Functional assessment tool, 52/70. [facility] [address] [place] [address] PAIN MANAGEMENT CONSULTATION Name: ALIREZA CAMARGO Room #: REG CL Ashley#: [id number] Admission: 08/03/18 ������������������ Attend Phys: Bernardino Mir MD Discharge: ������������������ Date of : 54 Report #: [id number] 11. Recreational drug use. The patient denies use of recreational drugs. 12. Tobacco: The patient has never smoked. 13. Alcohol: The patient denies frequent use of alcoholic beverages. PHYSICAL EXAMINATION: GENERAL: The patient is a well-developed, well-nourished, white female. She is alert and oriented x 3. Her affect is appropriate. Speech is fluent. HEENT: Normocephalic, atraumatic. Extraocular eye muscles intact. Sclerae nonicteric. Mucous membranes are moist. The patient is wearing her glasses. She is accompanied by her granddaughter, who has spina bifida and is in a wheelchair. NECK: Without adenopathy or JVD. LUNGS: Clear to auscultation. HEART: Regular rate. ABDOMEN: Nontender. Bowel sounds present. MUSCULOSKELETAL: Without significant scoliosis, kyphosis or lordosis. The patient does complain of pain and discomfort in the lower portion of her back. Has some pain in the low back and gluteal areas. Notes increased pain with activities of daily living such as cleaning, bending, and lifting. IMPRESSION: 1. History of bilateral hip pain, radiates down into her groin on occasion. 2. Myofascial pain, lower portion of back. 3. History of lumbar radiculopathy, L4-L5 distribution. 4. Chronic pain, treated with opioid medication. 5. Depression. 6. Right shoulder pain. 7. Hypertension. RECOMMENDATIONS: We discussed treatment options with the patient. We again discussed the risks and benefits of opioid medications. We explained the possible complications of their use, which could be addiction as well as less efficacy because of development of tolerance. The patient states that she has no intention of harming herself. She is upset that her of 40 years does not pay as much attention to her. He oftentimes will help neighbors with their chores, but neglects her and their home life. She states a number of times that he is a good man. She sometimes scares him because she feels that she needs to let off steam. A script for her medication has been written. She will take Xtampza ER 9 mg daily, Percocet 5/325 1 p.o. t.i.d. We would like to thank you for letting us participate in her care. We hope she continues to improve. ��������������������������������������������� <ELECTRONICALLY SIGNED> ���������������������������������������� By: Bernardino Mir MD ��������������������������������������������� 08/10/18 0828 1712 [id number] Bernardino Mir MD /QUENTIN
== END ==
LOC: PAIN 07:13
DX: M25.551 Pain in right hip (principal); M25.552 Pain in left hip; I10 Essential (primary) hypertension; M25.511 Pain in right shoulder; F32.9 Major depressive disorder, single episode, unspecified; G89.29 Other chronic pain; M54.16 Radiculopathy, lumbar region; R51 Headache; Z79.899 Other long term (current) drug therapy

== ENCOUNTER → 2018-08-31 | Outpatient (CLI) | payer OTHER ==
[~2018-08-31] VITALS: Ht 154.9 cm; Wt 67.0 kg
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
[2018-08-31 11:36] VITALS: BP 135/78
--- NOTE | 2018-08-31 11:56 | NUR ---
Pain Clinic Assessment: 1. History of Osteoarthritis: Not Applicable History of Rheumatoid Arthritis: Not Applicable 2. Height: 5 ft. 1 in. 154.9 cm. Weight: 147.6 lb. oz. 66.951 kg. Patient's BMI: 27.9 3. Vital Signs: BP: 135/78 Pulse: 71 Resp: 20 Temp: 02 Sat: 100 ECG Mon: 4. Pain Intensity: 10 5. Fall Risk: Dizziness: N Needs help standing or walking: N Fallen in the last 3 months: N Fall risk comments: 6. Patient on Blood Thinner: None 7. History of Hypertension: Y 8. Opioid Therapy greater than 6 weeks: Y Opiate Contract Signed: 11/07/15 9. Risk Assessment Tool Provided: LOW RISK 0/0 10. Functional Assessment Tool: 11. Recreational Drug Use: Never Drug Type: Tobacco Use: Never Smoker Tobacco Type: Amount or Packs/day: How Many Years: Alcohol Use: No Frequency: Quant:
== END ==
LOC: PAIN 07:11
DX: M54.16 Radiculopathy, lumbar region (principal); M25.512 Pain in left shoulder; M79.18 Myalgia, other site; M25.551 Pain in right hip; M25.552 Pain in left hip; I10 Essential (primary) hypertension; F32.9 Major depressive disorder, single episode, unspecified; Z79.891 Long term (current) use of opiate analgesic; Z79.899 Other long term (current) drug therapy

== ENCOUNTER → 2018-09-02 | Outpatient (CLI) | payer OTHER ==
[~2018-09-02] VITALS: Ht 154.9 cm; Wt 69.9 kg
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
[2018-09-02 13:08] VITALS: BP 144/98
--- NOTE | 2018-09-02 13:17 | NUR ---
Pain Clinic Assessment: 1. History of Osteoarthritis: Not Applicable History of Rheumatoid Arthritis: Not Applicable 2. Height: 5 ft. 1 in. 154.9 cm. Weight: 154.0 lb. oz. 69.854 kg. Patient's BMI: 29.1 3. Vital Signs: BP: 144/98 Pulse: 108 Resp: 16 Temp: 02 Sat: 96 ECG Mon: 4. Pain Intensity: 10 5. Fall Risk: Dizziness: N Needs help standing or walking: N Fallen in the last 3 months: N Fall risk comments: 6. Patient on Blood Thinner: None 7. History of Hypertension: Y 8. Opioid Therapy greater than 6 weeks: Y Opiate Contract Signed: 11/07/15 9. Risk Assessment Tool Provided: LOW RISK 0/0 10. Functional Assessment Tool: 11. Recreational Drug Use: Never Drug Type: Tobacco Use: Never Smoker Tobacco Type: Amount or Packs/day: How Many Years: Alcohol Use: No Frequency: Quant:
== END | disposition home or self-care (01) ==
LOC: PAIN 06:56
DX: M54.16 Radiculopathy, lumbar region (principal); G89.29 Other chronic pain; I10 Essential (primary) hypertension; M25.511 Pain in right shoulder; F32.9 Major depressive disorder, single episode, unspecified; Z79.891 Long term (current) use of opiate analgesic; Z79.899 Other long term (current) drug therapy; Z98.890 Other specified postprocedural states

== ENCOUNTER → 2018-09-28 | Outpatient (CLI) | payer OTHER ==
[~2018-09-28] VITALS: Ht 154.9 cm; Wt 63.0 kg
[2018-09-28 13:12] VITALS: BP 128/84
--- NOTE | 2018-09-28 13:21 | NUR ---
Pain Clinic Assessment: 1. History of Osteoarthritis: Not Applicable History of Rheumatoid Arthritis: Not Applicable 2. Height: 5 ft. 1 in. 154.9 cm. Weight: 139.0 lb. oz. 63.050 kg. Patient's BMI: 26.3 3. Vital Signs: BP: 128/84 Pulse: 82 Resp: 14 Temp: 02 Sat: 97 ECG Mon: 4. Pain Intensity: 7 5. Fall Risk: Dizziness: N Needs help standing or walking: N Fallen in the last 3 months: N Fall risk comments: 6. Patient on Blood Thinner: None 7. History of Hypertension: Y 8. Opioid Therapy greater than 6 weeks: Y Opiate Contract Signed: 11/07/15 9. Risk Assessment Tool Provided: LOW RISK 0/0 10. Functional Assessment Tool: 11. Recreational Drug Use: Never Drug Type: Tobacco Use: Never Smoker Tobacco Type: Amount or Packs/day: How Many Years: Alcohol Use: No Frequency: Quant:
--- NOTE | 2018-09-29 08:12 | HPC ---
[facility] [place] [address] PAIN MANAGEMENT CONSULTATION Name: ALIREZA CAMARGO Room #: REG [facility] Ashley#: [id number] Admission: 09/28/18 ������������������ Attend Phys: Kaitlin Fraser Discharge: ������������������ Date of : 54 Report #: [id number] THIS REPORT FOR: //name// CC: Kaitlin Franco DATE OF SERVICE: 09/28/2018 CHIEF COMPLAINT: Low back pain and bilateral leg pain. HISTORY OF PRESENT ILLNESS: This is a very pleasant 68-year-old female who returns to the pain clinic for her ongoing chronic pain issues. She tells me she has pain in her lower portion of her back and radiates down backside of her legs, most problematic on her left side. She tells me that the epidural that Dr. Mir gave her in August gave her about 80% relief, though it did not start working for about a week after her injection. Her legs stopped hurting, but she still has continued back pain that has slowly started to return. She tells me that she is not having any problems with constipation. She rates her pain at 7/10, mostly a sharp, shooting, numbness pain; worse with walking and standing. Her medication and heat is very helpful. The patient tells me that Dr. Mir had mentioned to her about taking #4 Percocet a day, though he wrote for #3 last visit. She does continue to take her Xtampza as well. I did question the patient how she takes these medications. She tells me she takes her Xtampza and 1 Percocet at 5:00 in the morning and then goes back to bed until about 10:00, takes another Percocet, then takes 1 later in the day of Percocet and then another Percocet at bedtime, so therefore, she needs 4 tablets a day. The patient would like refills of these medications and an increase. ALLERGIES: No known drug allergies. CURRENT MEDICATIONS: Oxycodone 5/325 t.i.d. p.r.n., Xtampza ER 9 mg daily, Cymbalta 60 mg daily, trazodone 100 mg at bedtime, omeprazole 20 mg daily, Lipitor 20 mg at bedtime, ibuprofen 800 mg p.r.n., lisinopril/hydrochlorothiazide 10/12.5 daily. PQRS: 1. The patient has arthritic changes in her lumbar spine. She is not being treated for rheumatoid arthritis. 2. Height is 5 feet 1 inch, weight is 139, BMI is 26. 3. Vital signs: Blood pressure 128/84, pulse is 82, respirations 14, oxygen sat is 97%. 4. Pain score 7/10 in her lower back. 5. Fall risk. Denies dizziness. Does not need help with walking or standing and has not fallen in the last [address] [place] [address] PAIN MANAGEMENT CONSULTATION Name: ALIREZA CAMARGO Room #: REG [facility] Ramirez#: [id number] Admission: 09/28/18 ������������������ Attend Phys: Kaitlin Fraser Discharge: ������������������ Date of : 54 Report #: [id number] 6. The patient is not on any blood thinners, but does take medication for hypertension. 7. Opioid therapy is greater than 6 weeks; therefore, an opioid signed contract is on the chart. Her risk assessment tool is low. Functional assessment is 52/70. 8. Recreational drug use, she denies. She is not a smoker and does not drink alcohol. We did check the prescription monitoring system. The patient is filling appropriately and is due for her medications this week. There is not a drug screen on the chart, we will check one on her at her next visit. PHYSICAL EXAMINATION: GENERAL: The patient is a well-developed, well-nourished white female who appears her stated age, placing her current pain score at 7/10. Her affect is appropriate. Her speech is fluent. HEENT: Normocephalic, atraumatic. Extraocular eye muscles are intact. Mucous membranes are moist. NECK: Without adenopathy or JVD. MUSCULOSKELETAL: Upper extremity strength judged to be 5/5 for all major muscle groups. The patient is without significant scoliosis, kyphosis or lordosis. She complains of pain in the lower portion of her back that does radiate down her left leg following the L5-S1 dermatome. Today, it is mostly located across her lumbar spine radiating into her buttocks. IMPRESSION: 1. History of bilateral hip pain what is radiating down the L5-S1 dermatomal distribution. 2. History of myofascial pain. 3. Low back pain. 4. History of lumbar radiculopathy in the L4-L5 to L5-S1 distribution. 5. Chronic medication management in terms of written opioid agreement. 6. Depression. We reviewed the fact that opiate medications are being used to provide analgesia adequate to support activities of daily living, not attempting to achieve a specific pain score on the 0-10 Visual Analog Scale. The current opiate medications are providing sufficient analgesia to allow the patient to participate in activities of daily living. The patient is not exhibiting any aberrant behavior suggestive of drug diversion. The patient is not having any adverse reactions to medications. The patient is not suffering from daytime somnolence or mental acuity changes. The patient is managing opiate-induced constipation with appropriate vucu-dcd-jjdjboc agents and dietary considerations. The patient was counseled on concern for caution with operating a motor vehicle while using opiate medications. [facility] [address] [place] [address] PAIN MANAGEMENT CONSULTATION Name: ALIREZA CAMARGO [id number] Admission: 09/28/18 ������������������ Attend Phys: Kaitlin Fraser Discharge: ������������������ Date of : 54 Report #: [id number] A physical exam was performed and the patient's functional status was evaluated. All patients with back pain were advised against the bed rest greater than 4 days and were advised to return to normal activities. Pain score assessment was noted and the treatment plan was reviewed with the patient. All current medications, both prescribed and OTC were reviewed and reconciled on the electronic medical record. Tobacco screening was accomplished and smoking cessation was advised when indicated. BMI was noted and diet/exercise modification was recommended for all patients following outside normal parameters. I reviewed with the patient today their responsibilities to safeguard prescription medications, reviewed their responsibility to utilize medications only as prescribed by the physician. They are to seek and receive pain medications only from 1 physician group ( [facility]). They are to use 1 pharmacy and keep the clinic informed if they change pharmacies. Their responsibilities include making followup visits in a timely fashion and to avoid abrupt discontinuation of medication usage. Their responsibilities further include bringing their medications (bottles from the pharmacy with residual pills) to the visit for possible confirmation of pill counts and the patient understands it is their responsibility to submit to random drug screens to ensure both that the medications prescribed are present, and that no other controlled substances are present. All prescriptions provided today were generated electronically. PLAN: 1. We discussed treatment options with the patient today. The patient finds that the epidural is very helpful in reducing her pain. She tells me she is at least 80% better and her leg continues to feel better, though her back pain has returned. She would like to schedule an appointment in another month for an epidural. We will do that prior to discharge. 2. The patient is requesting 4 Percocet tablets a day. She believes that Dr. Mir did mention that she could have that at her last appointment, though no mention in the chart or his last dictation about this. I did discuss with the patient how she takes her medications and explained the peaks and duration and onset of long-term versus short-term medications. We spent greater than 20 minutes discussing this. I explained to her that I would like her to try to take her Xtampza first thing in the morning, then when she gets out of bed later at 10:00, to take her first Percocet of the day at that time, then she can repeat her Percocet if she needs to based on her activity 4-6 hours later and then repeat it again 6 hours later. This would require only #3 tablets a day. I will discuss with Dr. Mir increasing her medicines. 3. Dr. Mir did collaborate care and see her today. We decided to give the patient extra #15 tablets for the month for days that she has significantly increased pain. Prescriptions given today then for Percocet 5/325 #100 and Xtampza ER 9 mg #30 to take 1 tablet a day. [address] [address] PAIN MANAGEMENT CONSULTATION Name: MARY JOALIREZA CLAUDY Room #: REG [facility] Ramirez#: [id number] Admission: 09/28/18 ������������������ Attend Phys: Kaitlin Fraser Discharge: ������������������ Date of : 54 Report #: [id number] 4. Appointment made for next month. The patient seen and collaborated care with Dr. Fredo Mir. ��������������������������������������������� <ELECTRONICALLY SIGNED> ���������������������������������������� By: Kaitlin Fraser ��������������������������������������������� 09/29/18 0812 [id number] Kaitlin Fraser /nt
== END ==
LOC: PAIN 07:03
DX: M54.16 Radiculopathy, lumbar region (principal); M25.551 Pain in right hip; M25.552 Pain in left hip; M79.10 Myalgia, unspecified site; F32.9 Major depressive disorder, single episode, unspecified; Z79.891 Long term (current) use of opiate analgesic; Z79.899 Other long term (current) drug therapy

== ENCOUNTER → 2018-10-19 | Outpatient (CLI) | payer OTHER ==
[~2018-10-19] VITALS: Ht 154.9 cm; Wt 62.4 kg
[~2018-10-19] MED LIST changes: +ESTRADIOL 1 MG T1 M1 PO
--- NOTE | ~2018-10-19 | HPC ---
[facility] [address] [place] [address] PAIN MANAGEMENT CONSULTATION Name: ALIREZA CAMARGO Room #: REG [facility] Ramirez#: [id number] Admission: 10/19/18 ������������������ Attend Phys: Bernardino Mir MD Discharge: ������������������ Date of : 54 Report #: [id number] THIS REPORT FOR: //name// CC: James Morrow DATE OF SERVICE: 10/19/2018 CHIEF COMPLAINT: "Pain in my leg is going down to back of my leg again and I would like to get another injection, it helped in the past. HISTORY: The patient is a 68-year-old female who has been followed in the pain clinic. She has chronic pain. She has noticed a worsening of pain in her lower portion of her back with pain that radiates down into her leg. Epidural steroid injection in the past were beneficial and she would like to proceed with another. She also like to consider having a reevaluation of her medical management. She has pain that is radiating down into both legs. She describes as chronic pain, which is shooting, sharp with numbness. Walking, standing, and bending are problematic. She has used heat and massage and found that beneficial in conjunction with her medications. She rates it as a 7/10 at this point. She has not had any new problems with bowel or bladder function. She desires an epidural steroid injection with hopes that this would help decrease her discomfort. ALLERGIES: No known drug allergies. CURRENT MEDICATIONS: Oxycodone 5 mg 1 p.o. t.i.d., Etodolac 500 mg, Xtampza 9 mg, Feldene 20 mg, Lasix, lisinopril 5 mg, and Vytorin 40 mg. PAIN CLINIC ASSESSMENT/PQRS: 1. The patient is not being treated for rheumatoid arthritis. She does have some pain and discomfort in lower portion of her back that radiates down the L5-S1 dermatomal distribution involving both legs. 2. Height 5 feet 1 inch, weight 137 pounds, BMI is 26.0. 3. Vital signs: Blood pressure 109/72, pulse 85, respiratory rate 20, room air saturation 98%. 4. Pain intensity 10. 5. Fall history: The patient has not fallen in the last 3 months. 6. Blood thinner. The patient is not on a blood thinning medication. 7. Hypertension. The patient is being treated for hypertension. 8. Opioid greater than 6 weeks. The patient is on opioid regimen, which she received from the pain clinic. 9. Risk assessment tool, low for opioid use. 10. Functional assessment tool 52/70. 11. Recreational drug use. The patient denies use of recreational drugs. [address] [address] PAIN MANAGEMENT CONSULTATION Name: ALIREZA CAMARGO CLAUDY Room #: REG CLI Ashley#: [id number] Admission: 10/19/18 ������������������ Attend Phys: Bernardino Mir MD Discharge: ������������������ Date of : 54 Report #: [id number] 12. Tobacco: The patient has never smoked. 13. Alcohol: The patient denies use of alcoholic beverages. PHYSICAL EXAMINATION: GENERAL: The patient is a well-developed, well-nourished white female. Appears her stated age. She is alert and oriented x 3. Her affect is appropriate. Speech is fluent. HEENT: Normocephalic, atraumatic. Extraocular eye muscles intact. Sclerae nonicteric. Mucous membranes are moist. NECK: Without adenopathy or JVD. LUNGS: Clear to auscultation. HEART: Regular rate. ABDOMEN: Nontender. Bowel sounds present. MUSCULOSKELETAL: Without significant scoliosis, kyphosis, or lordosis. Upper extremity muscle strength is judged to be 5/5 for the major muscle groups. The patient has history significant lordosis, kyphosis, and scoliosis in the lower portion of her back. She is experiencing pain that radiates down into the L5-S1 dermatomal distribution on the left as well as the right side. IMPRESSION: 1. History of bilateral hip pain with pain radiating down the L5-S1 distribution. The patient notes some improvement after the last injection. 2. History of myofascial pain. 3. Lumbar radiculopathy. 4. Low back pain. 5. History of lumbar radicular pain, L4-L5 in the past. 6. Chronic pain treated with opioid medications and complex medical regimen. 7. Depression. 8. Right shoulder pain. 9. Hypertension. RECOMMENDATIONS: We discussed treatment options with the patient. They include but are not limited to infection, worsening pain, no improvement in pain, and nerve damage. The patient elects to proceed. PROCEDURE NOTE: The patient was taken to the procedure area. She was then assisted in getting on the table. A pillow was placed under her about abdomen to bolster and improve positioning. Fluoroscopy used in anterior, posterior as well as lateral viewing were implemented. The patient's back was infiltrated at L5-S1 with a 25-gauge needle. After this area had been. A 17-gauge Tuohy with loss of resistance technique was used to gain access at the L5-S1 area. There was no CSF, heme, or paresthesia. A total of 80 mg Depo-Medrol, 40 mg triamcinolone, and 2 mL of 0.25% bupivacaine was injected. Total of 7 seconds fluoroscopy time was used. The patient will return to the pain clinic as [facility] [address] [place] [address] PAIN MANAGEMENT CONSULTATION Name: ALIREZA CAMARGO Room #: REG CL [facility].#: [id number] Admission: 10/19/18 ������������������ Attend Phys: Bernardino Mir MD Discharge: ������������������ Date of : 54 Report #: [id number] needed. We would like to thank you for letting us participate in her care. We hope she continues to improve. ��������������������������������������������� ���������������������������������������� By: ��������������������������������������������� 1132 21 Bernardino Mir MD /QUENTIN
[2018-10-19 12:34] VITALS: BP 109/72
--- NOTE | 2018-10-19 12:59 | NUR ---
Pain Clinic Assessment: 1. History of Osteoarthritis: Not Applicable History of Rheumatoid Arthritis: Not Applicable 2. Height: 5 ft. 1 in. 154.9 cm. Weight: 137.6 lb. oz. 62.415 kg. Patient's BMI: 26.0 3. Vital Signs: BP: 109/72 Pulse: 85 Resp: 20 Temp: 02 Sat: 98 ECG Mon: 4. Pain Intensity: 7 5. Fall Risk: Dizziness: N Needs help standing or walking: N Fallen in the last 3 months: N Fall risk comments: 6. Patient on Blood Thinner: None 7. History of Hypertension: Y 8. Opioid Therapy greater than 6 weeks: Y Opiate Contract Signed: 11/07/15 9. Risk Assessment Tool Provided: LOW RISK 0/0 10. Functional Assessment Tool: 11. Recreational Drug Use: Never Drug Type: Tobacco Use: Never Smoker Tobacco Type: Amount or Packs/day: How Many Years: Alcohol Use: No Frequency: Quant:
== END | disposition home or self-care (01) ==
LOC: PAIN 07:00
DX: M54.16 Radiculopathy, lumbar region (principal); G89.29 Other chronic pain; F32.9 Major depressive disorder, single episode, unspecified; I10 Essential (primary) hypertension; Z79.899 Other long term (current) drug therapy

== ENCOUNTER → 2018-11-23 | Outpatient (CLI) | payer OTHER ==
[~2018-11-23] VITALS: Ht 154.9 cm; Wt 62.4 kg
--- NOTE | ~2018-11-23 | HPC ---
[facility] [place] [address] PAIN MANAGEMENT CONSULTATION Name: ALIREZA CAMARGO Room #: REG CARLOTTA Javon.#: [id number] Admission: 11/23/18 ������������������ Attend Phys: Bernardino Mir MD Discharge: ������������������ Date of : 54 Report #: [id number] THIS REPORT FOR: //name// CC: James Mir DATE OF SERVICE: 11/23/2018 CHIEF COMPLAINT: Here for medications. "I am going to have surgery on my hip." FOLLOWUP HISTORY: The patient is a 68-year-old female who has been followed in the pain clinic because of chronic pain. Continues to have pain and discomfort in lower portion of her back. This pain radiates down into her leg. She has undergone epidural steroid injections in the past. She has been evaluated by the orthopedic doctor. It is felt that she has wvhl-eo-aekb pain involving the right hip. Comparisons of the present image to the old image indicates that since 2014 there has been some degradation in her hip. There is uwwx-zw-uwdf findings with spurs. She notes that when she travels and does certain activities, she has to use one leg at a time. Does use a cane. She has returned today for refill of her medications. ALLERGIES: No known drug allergies. CURRENT MEDICATIONS: Oxycodone 5 mg 1 p.o. t.i.d., etodolac 500 mg, Xtampza 9 mg, Feldene 20 mg, Lasix, lisinopril 5 mg and Voltaren 40 mg. PAIN CLINIC ASSESSMENT/PQRS: 1. The patient is not being treated for rheumatoid arthritis. She does have some pain and discomfort in the lower portion of her back that radiates down into the L4-L5 dermatomal distribution in both legs. 2. Height 5 feet 1 inch, weight 137 pounds, BMI is 26.0. 3. VITAL SIGNS: Blood pressure 111/74, pulse 93, respiratory rate 18, room air saturation is 97%, temperature was 98. 4. Pain intensity 11/23. 5. Fall risk. The patient has fallen in the last 3 months. 6. Blood thinner. The patient is not on a blood thinning medication. 7. Hypertension. The patient is being treated for hypertension. 8. Opioid greater than 6 weeks. 9. Risk assessment tool, low for opioid risk. 10. Functional assessment tool . 11. Recreational drug use. The patient denies use of recreational drugs. 12. Tobacco: The patient has never smoked. 13. Alcohol: The patient denies frequent use of alcoholic beverages. PHYSICAL EXAMINATION: GENERAL: The patient is a well-developed, well-nourished white female. She [facility] [address] [place] [address] PAIN MANAGEMENT CONSULTATION Name: ALIREZA CAMARGO CLAUDY Room #: REG CAR[facility]OTTA Ramirez#: [id number] Admission: 11/23/18 ������������������ Attend Phys: Bernardino Mir MD Discharge: ������������������ Date of : 54 Report #: [id number] appears her stated age. She is alert and oriented x 3. Her affect is appropriate. Speech is fluent. HEENT: Normocephalic, atraumatic. Extraocular eye muscles intact. Sclerae nonicteric. Mucous membranes moist. NECK: Without adenopathy or JVD. LUNGS: Clear to auscultation. HEART: Regular rate. ABDOMEN: Nontender. Bowel sounds present. MUSCULOSKELETAL: Without significant scoliosis, kyphosis or lordosis. Upper extremity muscle strength is judged to be 5/5 for the major muscle groups. The patient is walking with an antalgic gait. She has pain and discomfort in the right side with abhq-zc-pryb pain. After going from a sitting to a standing position. She walks with a very antalgic and calculated pace. IMPRESSION: 1. History of bilateral hip pain with pain radiating down the L5-S1 distribution. The patient has noted some improvement after the last injection. 2. History of myofascial pain. 3. Lumbar radiculopathy. 4. Low back pain. 5. History of lumbar radicular pain, L4-L5 in the past. 6. Chronic pain treated with opioid medication, complex medical regimens. 7. Depression. 8. Right shoulder pain. 9. Hypertension. RECOMMENDATIONS: We discussed treatment options with the patient. At this juncture, she would like to have her medications renewed. She is aware that opioid medications can be problematic in some patients. She does not feel that applies to her. She keeps her medications in a guarded area. She is somewhat nervous about undergoing an injection, but does feel that is her only real option at this juncture. She has returned today and would like to continue with her medications. Does find the use of a pack of cold ice in the left hip area can be helpful considerably in decreasing her pain. She notes the pain increase significantly after walking around [employer]. She feels that her medications of Percocet 5/325 one p.o. q.6 hours, Xtampza 9 mg is beneficial. She will call us in the near future. She is contemplating surgery in about February. We would like to thank you for letting us participate in her care. We hope she continues to improve. We will continue with the patient's complex medical regimen using opioid medications. ��������������������������������������������� ���������������������������������������� By: ��������������������������������������������� 1704 1848 Bernardino Mir MD /jennifer
[2018-11-23 13:35] VITALS: BP 111/74
--- NOTE | 2018-11-23 13:47 | NUR ---
Pain Clinic Assessment: 1. History of Osteoarthritis: Not Applicable History of Rheumatoid Arthritis: Not Applicable 2. Height: 5 ft. 1 in. 154.9 cm. Weight: 137.6 lb. oz. 62.415 kg. Patient's BMI: 26.0 3. Vital Signs: BP: 111/74 Pulse: 93 Resp: 18 Temp: 02 Sat: 98 ECG Mon: 4. Pain Intensity: 7 5. Fall Risk: Dizziness: N Needs help standing or walking: Y Fallen in the last 3 months: Y Fall risk comments: 6. Patient on Blood Thinner: None 7. History of Hypertension: Y 8. Opioid Therapy greater than 6 weeks: Y Opiate Contract Signed: 11/07/15 9. Risk Assessment Tool Provided: LOW RISK 0/0 10. Functional Assessment Tool: 11. Recreational Drug Use: Never Drug Type: Tobacco Use: Never Smoker Tobacco Type: Amount or Packs/day: How Many Years: Alcohol Use: No Frequency: Quant:
== END ==
LOC: PAIN 07:06
DX: M54.16 Radiculopathy, lumbar region (principal); M25.551 Pain in right hip; M25.552 Pain in left hip; M25.511 Pain in right shoulder; G89.29 Other chronic pain; M79.10 Myalgia, unspecified site; I10 Essential (primary) hypertension; F32.9 Major depressive disorder, single episode, unspecified; Z79.899 Other long term (current) drug therapy; Z79.891 Long term (current) use of opiate analgesic

== ENCOUNTER → 2018-12-21 | Outpatient (CLI) | payer OTHER ==
[~2018-12-21] VITALS: Ht 154.9 cm; Wt 61.4 kg
[2018-12-21 12:53] VITALS: BP 134/90
--- NOTE | 2018-12-21 13:05 | NUR ---
Pain Clinic Assessment: 1. History of Osteoarthritis: Not Applicable History of Rheumatoid Arthritis: Not Applicable 2. Height: 5 ft. 1 in. 154.9 cm. Weight: 135.4 lb. oz. 61.417 kg. Patient's BMI: 25.6 3. Vital Signs: BP: 134/90 Pulse: 88 Resp: 16 Temp: 02 Sat: 97 ECG Mon: 4. Pain Intensity: 8 5. Fall Risk: Dizziness: N Needs help standing or walking: N Fallen in the last 3 months: N Fall risk comments: 6. Patient on Blood Thinner: None 7. History of Hypertension: Y 8. Opioid Therapy greater than 6 weeks: Y Opiate Contract Signed: 11/07/15 9. Risk Assessment Tool Provided: LOW RISK 0/0 10. Functional Assessment Tool: 11. Recreational Drug Use: Never Drug Type: Tobacco Use: Never Smoker Tobacco Type: Amount or Packs/day: How Many Years: Alcohol Use: No Frequency: Quant:
--- NOTE | 2018-12-22 14:17 | HPC ---
[facility] [place] [address] PAIN MANAGEMENT CONSULTATION Name: ALIREZA CAMARGO Room #: REG [facility] Ashley#: [id number] Admission: 12/21/18 Attend Phys: Kaitlin Fraser Discharge: Date of : 54 Report #: [id number] THIS REPORT FOR: //name// CC: Kaitlin Franco DATE OF SERVICE: 12/21/2018 CHIEF COMPLAINT: Low back pain and right hip pain. HISTORY OF PRESENT ILLNESS: This is a 68-year-old female who returns to the pain clinic today for refill of her medications. She finds that her Xtampza and Percocet are very beneficial in controlling her lower back pain and her bilateral hip pain as well as having periodic epidural steroid injections. She reports pain score is 8/10 today. Her pain is worse with walking and standing as well as bending, but her medication and heat and massage are very beneficial. The patient does tell me she has been having some problems with constipation lately, has needed a laxative and is trying to increase her fluid intake due to this recent constipation. The patient would like to have a right hip injection. She tells me she is going to have this hip replaced on 02/15/[address] Deleon here at [facility], and she was informed that she could have a hip injection along, as it was 6 weeks prior to her surgery, so she would like to schedule that injection for as soon as possible with Dr. Mir. ALLERGIES: No known drug allergies. CURRENT LIST OF MEDICATIONS: Xtampza 9 mg daily, oxycodone 5/325 p.r.n., Estrace, Cymbalta, trazodone, omeprazole, atorvastatin, ibuprofen, and lisinopril/hydrochlorothiazide. PQRS: 1. She is not being treated for rheumatoid arthritis, but she does have osteoarthritis in her back, hips. 2. Height is 5 feet 1 inch, weight is 135, BMI is 25. 3. Vital signs; 134/90, pulse is 88, respirations 16, oxygen sat is 97%. 4. Pain score is 8/10. 5. Denies dizziness. Does not need help walking or standing, has not fallen in the last 3 months. 6. The patient is not on any blood thinners, does take medicine for hypertension. 7. Opiate therapy is greater than 6 weeks; therefore, an opiate signed contract is on the chart. Risk assessment tool is low. Functional assessment is 52/70. 8. Recreational drug use, she denies. She is not a smoker [place] [address] PAIN MANAGEMENT CONSULTATION Name: ALIREZA CAMARGO Room #: REG [facility] Ashley#: [id number] Admission: 12/21/18 Attend Phys: Kailtin Fraser Discharge: Date of : 54 Report #: [id number] According to the prescription monitoring system, the patient is filling appropriately for her medications. She is due for those medicines today. PHYSICAL EXAMINATION: GENERAL: This is a well-developed, well-nourished, well-hydrated white female who appears her stated age, placing her current pain score today at 8/10. HEENT: Normocephalic, atraumatic. Extraocular eye muscles are intact. Mucous membranes are moist. NECK: Without adenopathy or JVD. MUSCULOSKELETAL: Without significant scoliosis, kyphosis or lordosis. She does walk with an antalgic gait, has pain and discomfort in her lumbar back, does radiate down her bilateral legs. Also complains of right hip pain, worse with changing from sitting to standing position. IMPRESSION: 1. History of bilateral hip pain and pain following the L5-S1 dermatomal distribution. 2. History of myofascial pain. 3. Lumbar radiculopathy following the L4-L5 distribution in the past. 4. Low back pain. 5. Chronic pain with opioid medication, complex medication regimen. 6. Depression. 7. Hypertension. We reviewed the fact that opiate medications are being used to provide analgesia adequate to support activities of daily living, not attempting to achieve a specific pain score on the 0-10 Visual Analog Scale. The current opiate medications are providing sufficient analgesia to allow the patient to participate in activities of daily living. The patient is not exhibiting any aberrant behavior suggestive of drug diversion. The patient is not having any adverse reactions to medications. The patient is not suffering from daytime somnolence or mental acuity changes. The patient is managing opiate-induced constipation with appropriate nrdb-yen-uchizcg agents and dietary considerations. The patient was counseled on concern for caution with operating a motor vehicle while using opiate medications. A physical exam was performed and the patient's functional status was evaluated. All patients with back pain were advised against the bed rest greater than 4 days and were advised to return to normal activities. Pain score assessment was noted and the treatment plan was reviewed with the patient. All current medications, both prescribed and OTC were reviewed and reconciled on the electronic medical record. Tobacco screening was accomplished and smoking cessation was advised when indicated. BMI was noted and diet/exercise modification was recommended for all patients following outside normal parameters. [address] [address] PAIN MANAGEMENT CONSULTATION Name: ALIREZA CAMARGO Room #: REG [facility] Javon#: [id number] Admission: 12/21/18 Attend Phys: Kaitlin Fraser Discharge: Date of : 54 Report #: [id number] I reviewed with the patient today their responsibilities to safeguard prescription medications, reviewed their responsibility to utilize medications only as prescribed by the physician. They are to seek and receive pain medications only from 1 physician group ( [facility]). They are to use 1 pharmacy and keep the clinic informed if they change pharmacies. Their responsibilities include making followup visits in a timely fashion and to avoid abrupt discontinuation of medication usage. Their responsibilities further include bringing their medications (bottles from the pharmacy with residual pills) to the visit for possible confirmation of pill counts and the patient understands it is their responsibility to submit to random drug screens to ensure both that the medications prescribed are present, and that no other controlled substances are present. All prescriptions provided today were generated electronically. PLAN: 1. We discussed treatment options with the patient today. The patient tells me that she is going to have her hip replaced on 02/15/2019. She is very worried about this. She is scared of IVs. She is scared of having the surgery, but she knows that she needs to go through with the surgery to help relieve some of her right hip pain. We did talk about decreasing her short-acting medicines slightly by decreasing it 1 pill a day for several days prior to surgery to help with her postoperative pain control. The patient verbalizes understanding, but she does not think that she will be able to do this. 2. The patient is requesting a hip injection prior to her surgery. She informed me that may have an injection at least 6 weeks prior to her OR date and would like to schedule that today with Dr. Mir. We will do that prior to discharge. 3. Scripts given today for her Xtampza ER 9 mg once a day, #30, for release for 1 month and Percocet 5/325, #100, for release for 1 month. 4. The patient is seen in collaboration today with Dr. Fredo Mir. <ELECTRONICALLY SIGNED> By: Kaitlin Fraser 12/22/18 1417 [id number] [id number] Kaitlin Fraser /nt
== END ==
LOC: PAIN 07:02
DX: M54.16 Radiculopathy, lumbar region (principal); M25.551 Pain in right hip; M25.552 Pain in left hip; M79.18 Myalgia, other site; M54.5 Low back pain; F32.9 Major depressive disorder, single episode, unspecified; I10 Essential (primary) hypertension; Z79.899 Other long term (current) drug therapy

== ENCOUNTER → 2018-12-28 | Outpatient (CLI) | payer OTHER ==
[~2018-12-28] VITALS: Ht 154.9 cm; Wt 60.8 kg
--- NOTE | ~2018-12-28 | HPC ---
[facility] [place] [address] [address] [place] [address] PAIN MANAGEMENT CONSULTATION Name: ALIREZA CAMARGO Room #: REG CARLOTTA Alejandro.#: [id number] Admission: 12/28/18 Attend Phys: Bernardino Mir MD Discharge: Date of : 54 Report #: [id number] THIS REPORT FOR: //name// CC: James Mir DATE OF SERVICE: 12/28/2018 CHIEF COMPLAINT: Pain in the right leg, hip and pain down into the right foot. HISTORY: The patient is a 68-year-old female who has been followed in the pain clinic because of chronic pain. She is having pain and discomfort involving her right hip. States that she is going to undergo a hip replacement in the near future. She has been experiencing pain that is radiating down into the right leg and down to the level of her ankle. She underwent an epidural steroid injection and noticed some significant improvement in her pain. She has returned today with the hope of undergoing another epidural steroid injection to help control the pain and discomfort prior to her surgery. Pain in 08/2018 was similar to this and the epidural worked well. ALLERGIES: No known drug allergies. CURRENT MEDICATIONS: Xtampza 9 mg daily, oxycodone 5 mg p.r.n., Estrace, Cymbalta, trazodone, omeprazole, Lipitor, ibuprofen, lisinopril/hydrochlorothiazide. PAIN CLINIC ASSESSMENT AND PQRS: 1. The patient is not being treated for rheumatoid arthritis. Does have some osteoarthritic changes in her back as well as in her right hip. 2. Height 5 feet 1 inch, weight 134 pounds, BMI is 25. 3. Vital Signs: Blood pressure 127/74, pulse is 106, respiratory rate 18, room air saturation is 99%. 4. Pain intensity /10. 5. Fall risk. The patient has not fallen in the last 3 months. 6. Blood thinner. The patient is not on a blood thinning medication. 7. Hypertension. The patient is being treated for hypertension. 8. Opioids greater than 6 weeks. The patient receives her medication from one source, the pain clinic. 9. Risk assessment tool, low for opioid use. 10. Functional assessment tool . 11. Recreational drug use. The patient denies. 12. Tobacco: The patient has never smoked. 13. Alcohol: The patient denies frequent use of alcoholic beverages. PHYSICAL EXAMINATION: GENERAL: The patient is a well-developed, well-nourished [place] [address] PAIN MANAGEMENT CONSULTATION Name: ALIREZA CAMARGO Room #: REG [facility]#: [id number] Admission: 12/28/18 Attend Phys: Bernardino Mir MD Discharge: Date of : 54 Report #: [id number] her stated age. She is alert and oriented x 3. Her affect is appropriate. Speech is fluent. HEENT: Normocephalic, atraumatic. Extraocular eye muscles intact. Sclerae nonicteric. Mucous membranes are moist. The patient is wearing glasses. HEART: Regular rate. ABDOMEN: Nontender. EXTREMITIES: Upper extremity muscle strength judged to be 5/5 for the major muscle groups in the upper extremity. The patient without significant scoliosis, kyphosis or lordosis. The patient does walk with an antalgic gait. Favors her right leg and hip. She has pain that is radiating down the lateral portion of her right leg down into the calf and involving her foot. This is in the L4-L5 dermatomal distribution. IMPRESSION: 1. History of bilateral hip pain and pain in the L5-S1 dermatomal distribution. 2. History of myofascial pain. 3. Right hip pathology status is preparing for right hip replacement in February. 4. Low back pain. 5. Chronic pain treated with complex medical regimen using opioids. 6. Depression. 7. Hypertension. RECOMMENDATIONS: We discussed treatment options with the patient. Risks and benefits of an epidural steroid injection were again discussed. They could include but are not limited to infection, worsening of pain, no improvement in pain, bleeding, headache, nerve damage. The patient elects to proceed. PROCEDURE NOTE: The patient was taken to the procedure area. She was then assisted in getting on the examination table. Her back was sterilely prepped with a Betadine solution. A pillow was placed under her hips to bolster and improve positioning. At the L5-S1 area, 0.25% bupivacaine was infiltrated with a 25-gauge needle. A 17-gauge Tuohy with loss of resistance technique was used to gain access to the L5-S1 area after this area had been numbed. A right paramedian approach was undertaken. Aspiration was negative. A total of 80 mg Depo-Medrol, 40 mg of triamcinolone and 2 mL of 0.25% bupivacaine was injected. The patient tolerated the procedure well. There were no complications. She remained in the Pain Clinic for an appropriate amount of time. Her pain decreased to 0 at the time of discharge. She will follow up in the future as needed. [address] [address] PAIN MANAGEMENT CONSULTATION Name: ALIREZA CAMARGO Room #: SUSIE AlejandroSuzanne#: [id number] Admission: 12/28/18 Attend Phys: Bernardino Mir MD Discharge: Date of : 54 Report #: [id number] We would like to thank you for letting us participate in her care. We hope she continues to improve. By: [id number] Bernardino Mir MD /QUENTIN
[2018-12-28 12:44] VITALS: BP 127/74
--- NOTE | 2018-12-28 12:47 | NUR ---
Pain Clinic Assessment: 1. History of Osteoarthritis: Not Applicable History of Rheumatoid Arthritis: Not Applicable 2. Height: 5 ft. 1 in. 154.9 cm. Weight: 134.0 lb. oz. 60.782 kg. Patient's BMI: 25.3 3. Vital Signs: BP: 127/74 Pulse: 106 Resp: 18 Temp: 02 Sat: 99 ECG Mon: 4. Pain Intensity: 10 5. Fall Risk: Dizziness: N Needs help standing or walking: N Fallen in the last 3 months: N Fall risk comments: 6. Patient on Blood Thinner: None 7. History of Hypertension: Y 8. Opioid Therapy greater than 6 weeks: Y Opiate Contract Signed: 11/07/15 9. Risk Assessment Tool Provided: LOW RISK 0/0 10. Functional Assessment Tool: 11. Recreational Drug Use: Never Drug Type: Tobacco Use: Never Smoker Tobacco Type: Amount or Packs/day: How Many Years: Alcohol Use: No Frequency: Quant:
== END | disposition home or self-care (01) ==
LOC: PAIN 06:59
DX: M25.551 Pain in right hip (principal); M25.552 Pain in left hip; G89.29 Other chronic pain; M54.5 Low back pain; M79.18 Myalgia, other site; I10 Essential (primary) hypertension; F32.9 Major depressive disorder, single episode, unspecified; Z98.890 Other specified postprocedural states; Z79.891 Long term (current) use of opiate analgesic; Z79.899 Other long term (current) drug therapy

== ENCOUNTER → 2019-01-18 | Outpatient (CLI) | payer OTHER ==
[~2019-01-18] VITALS: Ht 154.9 cm; Wt 63.5 kg
[~2019-01-18] MED LIST changes: +OXYCODONE-ACET1 EAC2 PO
[2019-01-18 12:42] VITALS: BP 113/82
--- NOTE | 2019-01-18 12:45 | NUR ---
Pain Clinic Assessment: 1. History of Osteoarthritis: Not Applicable History of Rheumatoid Arthritis: Not Applicable 2. Height: 5 ft. 1 in. 154.9 cm. Weight: 140.0 lb. oz. 63.504 kg. Patient's BMI: 26.5 3. Vital Signs: BP: 113/82 Pulse: 75 Resp: 16 Temp: 02 Sat: 96 ECG Mon: 4. Pain Intensity: 7 5. Fall Risk: Dizziness: N Needs help standing or walking: N Fallen in the last 3 months: N Fall risk comments: 6. Patient on Blood Thinner: None 7. History of Hypertension: Y 8. Opioid Therapy greater than 6 weeks: Y Opiate Contract Signed: 11/07/15 9. Risk Assessment Tool Provided: LOW RISK 0/0 10. Functional Assessment Tool: 11. Recreational Drug Use: Never Drug Type: Tobacco Use: Never Smoker Tobacco Type: Amount or Packs/day: How Many Years: Alcohol Use: No Frequency: Quant:
--- NOTE | 2019-01-19 08:44 | HPC ---
[facility] [address] [address] PAIN MANAGEMENT CONSULTATION Name: ALIREZA CAMARGO Room #: REG [facility] Ashley#: [id number] Admission: 01/18/19 Attend Phys: Kaitlin Fraser Discharge: Date of : 54 Report #: [id number] THIS REPORT FOR: //name// CC: Kaitlin Franco DATE OF SERVICE: 01/18/2019 CHIEF COMPLAINT: Low back pain, right leg pain and right hip pain. HISTORY OF PRESENT ILLNESS: This is a very pleasant 68-year-old female who returns to the pain clinic today for refill of her medications that she uses to help treat her ongoing chronic pain. She tells me that her hip replacement is scheduled for 02/15. She is here to discuss pain management after her surgery and to get prescriptions. The patient reports a pain score of 7/10 today. She said it is a good day. Most of her pain is located in her lower back and her right hip and her right leg to her ankle. It is worse with walking and standing but better with her medications and heat. She does use a cane to help her walk. She has recently started her physical therapy to learn exercises for her postoperative period. She has been doing them for several hours at night in excess and does have some sore muscles as a result of this. The patient reports the lumbar epidural steroid injection that Dr. Mir performed a month ago is still giving her quite a bit relief at least 80% for this past month. She is here today for refills of medications. ALLERGIES: No known drug allergies. CURRENT LIST OF MEDICATIONS: Xtampza ER 9 mg daily, Percocet 5/325 3-4 times a day, Estrace 1 mg, Cymbalta 60 mg daily, trazodone 100 mg at bedtime, omeprazole 20 mg daily, atorvastatin 20 mg at bedtime, Motrin 800 mg q.8 hours and lisinopril/hydrochlorothiazide 10/12.5 daily. PQRS: 1. She is not being treated for rheumatoid arthritis. She has arthritic changes in her back and right hip. 2. Height is 5 feet 1 inch, weight is 140, BMI is 26. 3. Vital signs 113/82, pulse is 75, respirations 16, oxygen sat is 96. 4. Pain score 7/10. 5. Denies dizziness, does not need help walking or standing, has not fallen in the last 3 months. 6. The patient is not on any blood thinners but does take medicine for hypertension. [address] [address] PAIN MANAGEMENT CONSULTATION Name: ALIREZA CAMARGO Room #: REG [facility] M..#: [id number] Admission: 01/18/19 Attend Phys: Kaitlin Fraser Discharge: Date of : 54 Report #: [id number] 7. Opiate therapy is greater than 6 weeks therefore an opioid signed contract is on the chart. Risk assessment tool is low. Functional assessment is 52/70. 8. Recreational drug use, she denies. She is not a smoker and does not drink alcohol. According to the prescription monitoring system, the patient is filling appropriately for her medications in a timely fashion. PHYSICAL EXAMINATION: GENERAL: This is a well-developed, well-nourished white female who appears her stated age, placing her current pain score at 7/10. Her affect is appropriate. HEENT: Normocephalic, atraumatic. Extraocular eye muscles are intact. Sclerae nonicteric. Mucous membranes are moist. EXTREMITIES: Upper extremity strength judged to be 5/5 in all major muscle groups. She is without significant scoliosis, kyphosis or lordosis. She favors her right leg and hip. She has pain located in her right hip, localized and with tenderness. She also has pain in her lumbar spine that radiates down her lateral aspect of her right thigh to leg to her ankle. She does walk with an antalgic gait using a cane at all times. IMPRESSION: 1. History of bilateral hip pain and pain in the L5-S1 dermatomal distribution. 2. History of myofascial pain. 3. Right hip pain with hip replacement scheduled for 02/15. 4. Low back pain. 5. Chronic pain requiring treatment of opioid medication, complex management. 6. Depression. We reviewed the fact that opiate medications are being used to provide analgesia adequate to support activities of daily living, not attempting to achieve a specific pain score on the 0-10 Visual Analog Scale. The current opiate medications are providing sufficient analgesia to allow the patient to participate in activities of daily living. The patient is not exhibiting any aberrant behavior suggestive of drug diversion. The patient is not having any adverse reactions to medications. The patient is not suffering from daytime somnolence or mental acuity changes. The patient is managing opiate-induced constipation with appropriate xcwe-igr-cajktgs agents and dietary considerations. The patient was counseled on concern for caution with operating a motor vehicle while using opiate medications. A physical exam was performed and the patient's functional status was evaluated. All patients with back pain were advised against the bed rest greater than 4 days and were advised to return to normal activities. Pain score assessment was noted and the treatment plan was reviewed with the patient. All current medications, both prescribed and OTC were reviewed and reconciled on the electronic medical record. Tobacco screening was accomplished and smoking [address] [place] [address] PAIN MANAGEMENT CONSULTATION Name: ALIREZA CAMARGO Room #: REG [facility] M..#: [id number] Admission: 01/18/19 Attend Phys: Kaitlin ANA Fraser Discharge: Date of : 54 Report #: [id number] cessation was advised when indicated. BMI was noted and diet/exercise modification was recommended for all patients following outside normal parameters. I reviewed with the patient today their responsibilities to safeguard prescription medications, reviewed their responsibility to utilize medications only as prescribed by the physician. They are to seek and receive pain medications only from 1 physician group ( [facility]). They are to use 1 pharmacy and keep the clinic informed if they change pharmacies. Their responsibilities include making followup visits in a timely fashion and to avoid abrupt discontinuation of medication usage. Their responsibilities further include bringing their medications (bottles from the pharmacy with residual pills) to the visit for possible confirmation of pill counts and the patient understands it is their responsibility to submit to random drug screens to ensure both that the medications prescribed are present, and that no other controlled substances are present. All prescriptions provided today were generated electronically. PLAN: 1. We discussed plan of care in depth for about 25 minutes in preparation for her right hip replacement. The patient has been instructed to continue her Xtampza 9 mg on a daily basis and instructed to take this medication to the hospital with her since it is not on formulary so she may take that medicine when she is in the hospital. 2. The plan is for her to decrease her Percocet 5/325 three days prior to surgery to 1-2 tablets max a day. After surgery, she has been instructed to take Percocet 10/325 up to 5 times a day for 1 week if she needs that for pain and continue her Xtampza on a daily basis. On week 2, she is instructed to take 10/325 four times a day for this week. In week 3, she is instructed to split her Percocets in half taking now 5/325 five tablets a day if she needs them. On week 4, she is to take 5/325 up to 4 times a day and then we will see her on an appointment for next month's prescriptions on 03/17. The patient was given this schedule to put on her refrigerator at home. 3. The patient verbalizes understanding of these medications, so Scripts given today for Xtampza 9 mg #30 for today and 4-week release and Percocet 5/325 for today release and Percocet 10/325 #150 to release on 02/14. 4. Dr. Mir did see the patient as well today and collaborated care. <ELECTRONICALLY SIGNED> By: Kaitlin Fraser 01/19/19 0844 [id number] Kaitlin Fraser /jennifer
== END ==
LOC: PAIN 06:54
DX: M54.5 Low back pain (principal); M25.551 Pain in right hip; M79.18 Myalgia, other site; F32.9 Major depressive disorder, single episode, unspecified; Z79.891 Long term (current) use of opiate analgesic; Z79.899 Other long term (current) drug therapy

== ENCOUNTER 2019-02-15 06:48 | Inpatient (IN) | payer OTHER ==
[2019-02-06 13:13] LABS: HEMOGLOBIN 13.5 gm/dL (12.0-15.0); MCH 34.2 pg (26.0-34.0); MCHC 32.9 g/dL (28.0-37.0); MCV 103.9 fL (80.0-100.0); RBC 3.94 mil/uL (4.20-5.00); WBC 5.7 thou/uL (4.0-11.0)
[2019-02-06 13:19] LABS: URINE BILIRUBIN NEGATIVE (Negative); URINE BLOOD NEGATIVE (Negative); URINE CLARITY CLEAR; URINE COLOR YELLOW; URINE GLUCOSE-RANDOM* NEGATIVE (Negative); URINE KETONES NEGATIVE (Negative); URINE LEUKOCYTES-REFLEX NEGATIVE (Negative); URINE NITRITE-REFLEX NEGATIVE (Negative); URINE PROTEIN (DIPSTICK) NEGATIVE (Negative); URINE SPECIFIC GRAVITY <= 1.005 (1.005-1.035); URINE UROBILINOGEN 0.2 E.U./dl (0.2-1.0)
[2019-02-06 13:23] LABS: CREATININE 1.1 mg/dL (0.6-1.0); POTASSIUM 4.3 mmol/L (3.5-5.1)
[2019-02-06 13:27] LABS: PROTIME 9.9 Seconds (9.3-11.4)
--- NOTE | 2019-02-08 07:52 | EKG ---
[address] [address] ELECTROCARDIOGRAM REPORT Name: ALIREZA CAMARGO Room #: PRE IN ..#: [id number] Admission: Attend Phys: Vinicius Hassan MD Discharge: Date of : 54 Report #: [id number] THIS REPORT FOR: //name// [facility] Test Date: 2019-02-06 Test Time: 13:07:36 Pat Name: ALIREZA CAMARGO Department: Room: Gender: F Clinical Faculty: zara : 1950 Requested By: Vinicius Hassan Order Number: [id number] MD: Jameel Mckeon Measurements Intervals [place] Rate: 81 P: 57 IL: 165 QRS: 16 QRSD: 84 T: 59 QT: 380 QTc: 441 Interpretive Statements Sinus rhythm Abnormal R-wave progression, early transition Compared to ECG 05/09/2015 09:24:45 No significant changes Electronically Signed On 02-08-2019 7:52:35 CDT by Jameel Mckeon [email or web address] <ELECTRONICALLY SIGNED> By: Jameel Mckeon MD 02/08/19 0752 06 06 Jameel Mckeon MD /LILIANA
[~2019-02-15] VITALS: Ht 154.9 cm; Wt 60.3 kg
[~2019-02-15 06:48] MED LIST changes: +PANTOPRAZOLE SO40 MG PO; +PERCOCET PO; +ZOLPIDEM TARTRA10 MG PO
[2019-02-15 13:37] VITALS: BP 158/94
[2019-02-15 18:18] VITALS: BP 109/69
--- NOTE | 2019-02-15 20:46 | NUR ---
PT ARRIVED TO ROOM 447 18:20 VS 97.6 18 101 109/69 O2 SAT = 96 % RA. PT ALERT XS 3 WITH SOME FORGETFULNESS. NO PAIN NO RES DISTRESS, LUNGS CTA BS'S XS 4. IV FLUIDS INFUSING ORDERED. PICCO DRESSING TO RIGHT HIP. PT REGULAR DIET HAD FOOD FROM [facility]. PLEASANT AND COOPERATIVE WITH CARE. TALKING ON CELL PHONE.
[2019-02-16 04:20] VITALS: BP 117/69
--- NOTE | 2019-02-16 05:34 | NUR ---
ASSESSMENT COMPLETED. R HIP WITH POST OP DRSG C/D/I.JAELYN IN PLACE.PT BEEN USING [facility]ISA ON AND OFF.AFEBRILE.PT SEEMS ANXIOUS AND DID NOT WANT TO GET OUT OF BED TO USE THE BSC. EVEN WITH ENCOURAGEMENT-SHE WAS STILL AFRAID. WILL HAVE THERAPY TODAY AND THAT IS WHAT SHE IS LOOKING FORWARD TO.DENIES NAUSEA. PAIN WELL MANAGED BY [facility].CALLS APPROPRIATELY. WILL CONTINUE WITH POC TILL EOS.
[2019-02-16 06:05] LABS: HEMATOCRIT 34.8 % (37.0-47.0); HEMOGLOBIN 11.3 gm/dL (12.0-15.0); MCH 33.6 pg (26.0-34.0); MCHC 32.3 g/dL (28.0-37.0); MCV 103.9 fL (80.0-100.0); RBC 3.35 mil/uL (4.20-5.00); RDW 12.9 % (10.5-14.5); WBC 10.8 thou/uL (4.0-11.0)
[2019-02-16] MEDS ORDERED: NEURONTIN 300300 M1 PO (09:42)
[2019-02-16] MEDS ORDERED: ASPIR 8181 MG PO (09:42)
[2019-02-16 09:47] VITALS: BP 105/68
--- NOTE | 2019-02-16 10:49 | NUR ---
ASSUMED PATIENT CARE AT 0700 AM. PATIENT WAS ASSISTED TO RESTROOM IN THE AM AND VOIDED 125 ML. PATIENT WAS GIVEN PAIN MEDICATION PRIOR TO AMBULATING WITH PHYSICAL THERAPY. PATIENT AMBULATED IN THE [place] AND THE PHYSICAL THERAPIST SAID AFTER WORKING WITH HER AGAIN IN THE AFTERNOON SHE WOULD LIKELY BE ABLE TO GO HOME TODAY. PATIENT WAS GIVEN ALL MEDS THIS AM INCLUDING PROTONIX SINCE SHE WAS COMPLAINING OF HEARTBURN. CLIENT IS ANXIOUS AND TALKATIVE. EYE CONTACT WAS MAINTAINED, STIMULI REDUCED, AND VISITORS LIMITED. ACTIVITIES ARE SPACED OUT TO REDUCE ACTIVITY INTOLERANCE. FALL RISK PROTOCOL IS IN PLACE, FOR PATIENT SAFETY. THE PATIENT'S PERSONAL ITEMS AND CALL LIGHT ARE WITHIN REACH, THE BED IS IN THE LOWEST SETTING, AND THE CHAIR AND BED ALARM ARE IN USE DEPENDING ON THE PATIENT'S LOCATION. THE PATIENT IS REMINDED WHEN PAIN MEDICATION IS PERMITTED AND HAS THE INFORMATION WRITTEN ON THE BOARD. WILL CONTINUE TO MONITOR.
--- NOTE | 2019-02-16 13:20 | NUR ---
ASSESSMENT-PT LIVES AT HOME WITH HER . 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 PT NEEDS A ROLLER WALKER FOR HOME LATER TODAY. OFFERED [facility] AND PT CHOSE [facility]. NOTIFIED [facility] [employer] TO DELIVER ROLLER WALKER TODAY. NO OTHER DC NEEDS IDENTIFIED AT THIS TIME.
[2019-02-16 14:18] VITALS: BP 105/68
--- NOTE | 2019-02-16 16:46 | NUR ---
PT SAYS SHE HAS HER OUTPT THERAPY APPT SET-UP FOR .
--- NOTE | 2019-02-21 11:04 | O ---
[facility] [place] [address] [address] OPERATIVE REPORT Name: ALIREZA CAMARGO Room #: 447-P [facility] IN M.R.#: [id number] Admission: 02/15/19 Attend Phys: Vinicius Hassan MD Discharge: 02/16/19 Date of : 54 Report #: [id number] THIS REPORT FOR: //name// CC: James Hassan DATE OF SERVICE: 02/15/2019 PREOPERATIVE DIAGNOSIS: Right hip osteoarthritis. POSTOPERATIVE DIAGNOSIS: Right hip osteoarthritis. PROCEDURE: Right total hip arthroplasty. SURGEON: Vinicius Hassan MD. C SOFTWARE ENGINEER: Silvia Varma PA-C. INDICATIONS FOR C SOFTWARE ENGINEER: Throughout the case, extensive retraction and manipulation of the hip was required. This was afforded to me by my high school assistant principal. This included dislocation and reduction of the hip. ANESTHESIA: General. IMPLANTS: [employer] size 50, R3 acetabular cup with 1 acetabular screw size 9, Synergy high offset cemented stem and a size 32+0 cobalt chrome head. ESTIMATED BLOOD LOSS: 50 mL. COMPLICATIONS: None. SPECIMENS: None. CONDITION UPON LEAVING THE OPERATING ROOM: Stable. INDICATIONS FOR PROCEDURE: The patient is a 68-year-old female with severe right hip osteoarthritis. She had failed conservative measures for this and after discussion with her, she elected for right total hip arthroplasty. DESCRIPTION OF PROCEDURE: Risks, benefits, alternatives, complications were discussed in detail with the patient including but not limited to risk of anesthesia, risk of damage to nerves, arteries, blood vessels, risk for infection, bleeding, risk for continued hip pain, leg length discrepancy, instability and need for reoperation. Informed consent was obtained from the patient. The right hip was appropriately marked in the preoperative holding area. IV Ancef was given for preoperative antibiotics. She was brought to the [address] [address] OPERATIVE REPORT Name: ALIREZA CAMARGO Room #: 447-P DIS IN M.R.#: [id number] Admission: 02/15/19 Attend Phys: Vinicius Hassan MD Discharge: 02/16/19 Date of : 54 Report #: [id number] operating room and placed in supine position on operating room table. General anesthesia was induced without complication. She was then placed in the left lateral decubitus position with the right hip uppermost. Right hip and lower extremity were prepped and draped in normal sterile fashion. Timeout was performed properly identifying the patient and procedure as well as the instrumentation and implants. All in the operating room were in agreement. Standard posterior approach to the hip was made with 10 blade through the skin. Dissection was taken down sharply to the fascia and deep flaps were developed anteriorly and posteriorly. Fresh 10 blade was used to make a fascial incision. This was taken proximally and distally with curved Carl scissor. Charnley retractor was placed. Trochanteric bursa was taken down with Bovie cautery. Piriformis tendon was identified, tagged and taken down with Bovie. Short external rotators were taken down with Bovie cautery. Capsulotomy was made and capsule ends were tagged for later repair. The hip was dislocated. There was extensive osteoarthritic change in femoral head. Femoral neck cut was made 1 cm proximal to lesser trochanter based on preoperative templating and femoral head was removed. Deep acetabular retractors were placed. Labrum was removed sharply. Pulvinar was removed with Bovie cautery. Acetabulum was then sequentially reamed up to a size 50, at which point, there was excellent bleeding cancellous bone. A size 49 trial was placed, found to have a good fit. A final size 50 R3 acetabular cup was placed and seated. One acetabular screw was placed for backup fixation. Attention was then turned to the femur. This was reamed up to a size 9 and then broached with a size 8 broach; however, the 9 broach would not seat fully secondary to a small femoral canal. As the 9 was the smallest press fit stem available, we decided that it would be best to cement a size 9 cemented stem. We trialed with a high offset neck on an 8 broach. The hip was reduced, taken through range of motion, found to be stable, found to have equal leg lengths. Hip was dislocated and broach was removed. Final size 9 high offset Synergy stem was cemented in place using standard cementation techniques. After the cement cured, this was trialed with a 32+0 head. Hip was reduced, taken through range of motion, found to be stable, found to have equal leg lengths. Hip was dislocated one last time and a final size 32+0 cobalt chrome head was placed. Hip was reduced, taken through range of motion, found to be stable, found to have equal leg lengths. The hip was thoroughly irrigated with normal saline. A periarticular injection consisting of morphine, ropivacaine, epinephrine and Toradol was placed around the hip joint capsule. A gram of vancomycin was placed deep in the joint. The capsule was repaired with 0 FiberWire, piriformis was repaired with 0 FiberWire, fascia was closed with 0 Vicryl, skin was closed with 2-0 Vicryl, 3-0 Monocryl of Dermabond and a JAELYN dressing was applied. The patient tolerated this procedure well and went to recovery room under care of anesthesia postoperatively. <ELECTRONICALLY SIGNED> By: Vinicius Hassan MD 02/21/19 1104 [id number] [id number] Vinicius Hassan MD /nt
[2019-03-22] MEDS ORDERED: PERCOCET 5-3251 EACH PO (11:34)
[2019-03-22] MEDS ORDERED: PERCOCET PO (11:34)
== END 2019-02-16 15:16 | disposition home or self-care (01) | DRG 470 ==
LOC: PRE 06:48 → TBA 12:48 → 4S 12:48 → PRE 13:09 → 4S 17:30 → ENTRNSPT 02-16 15:02 → EDTRNSPTSTS 02-16 15:05 → 4S 02-16 15:16
PROVIDERS: ADMIT Orthopaedic Surgery
PROC: 0SR9019 Replacement of Right Hip Joint with Metal Synthetic Substitute, Cemented, Open Approach (ICD-10-PCS; principal; 2019-02-15)
DX: M16.11 Unilateral primary osteoarthritis, right hip (principal); Z79.899 Other long term (current) drug therapy; Z79.82 Long term (current) use of aspirin
CPT/HCPCS: 10102; 50010; 50101; 50382; 50414; 51057; 51130; 51225; 51226; 53000; 53078; 53367; 54118; 56524; 56527; 56528; 56530; 57095; 57103; 62110; 62900; 70005

== ENCOUNTER → 2019-03-22 | Outpatient (CLI) | payer OTHER ==
[~2019-03-22] VITALS: Ht 154.9 cm; Wt 62.9 kg
[~2019-03-22] MED LIST changes: +ASPIR 8181 MG PO; +NEURONTIN 300300 M1 PO
[2019-03-22 10:49] VITALS: BP 110/69
--- NOTE | 2019-03-22 11:05 | NUR ---
Pain Clinic Assessment: 1. History of Osteoarthritis: Not Applicable History of Rheumatoid Arthritis: Not Applicable 2. Height: 5 ft. 1 in. 154.9 cm. Weight: 138.6 lb. oz. 62.868 kg. Patient's BMI: 26.2 3. Vital Signs: BP: 110/69 Pulse: 89 Resp: 16 Temp: 02 Sat: 97 ECG Mon: 4. Pain Intensity: 9 5. Fall Risk: Dizziness: N Needs help standing or walking: N Fallen in the last 3 months: N Fall risk comments: 6. Patient on Blood Thinner: None 7. History of Hypertension: Y 8. Opioid Therapy greater than 6 weeks: Y Opiate Contract Signed: 11/07/15 9. Risk Assessment Tool Provided: LOW RISK 0/0 10. Functional Assessment Tool: 11. Recreational Drug Use: Never Drug Type: Tobacco Use: Former Smoker Tobacco Type: Amount or Packs/day: How Many Years: Alcohol Use: No Frequency: Quant:
--- NOTE | 2019-03-23 15:39 | HPC ---
[facility] [address] [address] PAIN MANAGEMENT CONSULTATION Name: ALIREZA CAMARGO [facility] #: [facility] [id number] Admission: 03/22/19 Attend Phys: Kaitlin Fraser Discharge: Date of : 54 Report #: [id number] THIS REPORT FOR: //name// CC: Kaitlin Franco DO N Mark Hassan MD DATE OF SERVICE: 03/22/2019 CHIEF COMPLAINT: Low back pain, right leg pain and right hip pain. HISTORY OF PRESENT ILLNESS: This is a very pleasant 68-year-old female who returns to the pain clinic today for a refill of her medications that she uses to help treat her ongoing low back pain. She reports she recently had her hip replaced on 02/15/2019 and is doing quite well. She does attend therapy several days a week. She is here walking without a walker stating her hip feels significantly better. She does rate her pain at a 9/10 today, which seems slightly higher than I would have expected, based on her report. She does tell me she has decreased her pain medicine significantly since her surgery, since she is feeling so good. She reports her pain as an aching, nagging pain that is worse with walking, especially in her low back. She finds her medications very beneficial to do her activities without any problems with side effects, significant constipation or daytime sleepiness. She does occasionally use Colace and Dulcolax to help with constipation when that arises . Today, she would like to decrease her Percocet to 4 tablets a day if that is acceptable with Dr. Mir. ALLERGIES: No known drug allergies. CURRENT LIST OF MEDICATIONS: Gabapentin 300 mg at night, aspirin 81 mg, Protonix 40 mg, Lexapro 10 mg, Ambien 10 mg p.r.n., Estrace 1 mg at bedtime, Flexeril p.r.n., Xtampza 9 mg daily, Percocet 5/325 p.r.n., Lipitor 20 mg, ibuprofen 800 mg p.r.n., lisinopril/hydrochlorothiazide daily. PQRS: 1. She has osteoarthritis in her hips and lower back. Denies any rheumatoid arthritis. 2. Height is 5 feet 1 inch, weight is 138, BMI is 26. 3. Vital signs 110/69, pulse is 89, respirations 16, oxygen sat is 97. 4. Pain score is 9/10. 5. Fall risk. Denies dizziness, does not need help walking, has not fallen in the last 3 months. 6. The patient is not on blood thinners, but does [place] [address] PAIN MANAGEMENT CONSULTATION Name: ALIREZA CAMARGO CLAUDY Room #: REG CARLOTTA Ramirez#: [id number] Admission: 03/22/19 Attend Phys: Kaitlin Fraser Discharge: Date of : 54 Report #: [id number] 7. Opioid therapy is greater than 6 weeks; therefore, an opioid signed contract is on the chart. Risk assessment tool is low. Functional assessment is 52/70. 8. Recreational drug use, she denies. She is a former smoker and does not drink alcohol. According to the prescription monitoring system, the patient is filling appropriately for her medications, though I do not see the last Xtampza script that she would have filled right before surgery. She reports that is at the pharmacy still. She did not fill it and has not needed it. We will check a random drug screen in the next visit. She tells me she safeguards her medications that she has at home. PHYSICAL EXAMINATION: GENERAL: This is a well-developed, well-nourished white female who appears her stated age of 68, reporting a pain score of 7/10. Her affect is appropriate. HEENT: Normocephalic, atraumatic. Extraocular eye muscles are intact. Mucous membranes lower extremities. MUSCULOSKELETAL: She is without significant scoliosis, kyphosis or lordosis. She has pain in her lumbar spine that radiates into her lateral aspect of her right leg to her ankle following the L5-S1 dermatomal distribution. She does walk with a slightly antalgic gait, not using a cane today. The patient has a well-approximated scar on her right hip from her recent hip surgery. IMPRESSION: 1. History of bilateral hip pain with recent right hip replacement. 2. Lumbar radiculopathy following the L5-S1 dermatomal distribution. 3. History of myofascial pain. 4. Low back pain. 5. Chronic pain, requiring opioid medications. 6. Depression. PLAN: 1. We discussed treatment options with the patient today. The patient is doing quite well since her hip surgery on 02/15/2019. She is not requiring her Xtampza script, did not fill her last one, has been maintaining her pain with her Percocet. She would like to decrease this medication to 4 tablets, 5/325 mg a day. The patient has been taking 2 Percocet, 10/325 per day, in the last few weeks. 2. I did discuss with Dr. Fredo Mir the patient's. request. I explained to the patient that I do not believe she will experience any withdrawal symptoms since they had already stopped her Xtampza. We will gladly write for Percocet 5/325, a total of 120 for the month for release today and 4 weeks for a 2-month supply. This does place the patient at 30 morphine milliequivalents per day. 3. We did encourage her to continue her physical therapy. She is doing quite well. She is here present without her cane today from her recent hip surgery. [facility] [address] [place] [address] PAIN MANAGEMENT CONSULTATION Name: MARY JOALIREZA [id number] Admission: 03/22/19 Attend Phys: Kaitlin Fraser Discharge: Date of : 54 Report #: [id number] She reports therapy is hard, but she is feeling much better. 4. The patient will be seen in 2 months. The patient is seen today in collaboration with Dr. Fredo Mir who did see the patient as well today. <ELECTRONICALLY SIGNED> By: Kaitlin Fraser 03/23/19 1539 [id number] [id number] Kaitlin Fraser /jennifer
== END ==
LOC: PAIN 03-17 06:53
DX: M54.16 Radiculopathy, lumbar region (principal); M79.7 Fibromyalgia; F32.9 Major depressive disorder, single episode, unspecified; G89.29 Other chronic pain

== ENCOUNTER → 2019-05-19 | Outpatient (CLI) | payer OTHER ==
[~2019-05-19] VITALS: Ht 154.9 cm; Wt 63.0 kg
[~2019-05-19] MED LIST changes: +NEURONTIN 300M300 M2 PO
[2019-05-19 08:46] VITALS: BP 131/82
--- NOTE | 2019-05-22 14:20 | HPC ---
[facility] [address] [place] [address] PAIN MANAGEMENT CONSULTATION Name: ALIREZA CAMARGO Room #: REG Jose Ramirez#: [id number] Admission: 05/19/19 Attend Phys: Kaitlin Fraser Discharge: Date of : 54 Report #: [id number] THIS REPORT FOR: //name// CC: Kaitlin Etienne MD DATE OF SERVICE: 05/19/2019 HISTORY OF PRESENT ILLNESS: This is a pleasant 68-year-old female who returns to the pain clinic today for refill of her medications. She finds them very beneficial in controlling her pain. She does report a pain score of 7/10. She feels that she has recently had pain that is radiating again down her right leg into her right calf, occasionally she does have left calf pain as well. She reports she had an x-ray of her left hip recently by Dr. Franco, which she reports showed significant degeneration in the left hip. The patient thinks that she will need to have that replaced in the future. The patient reports a pain score 7/10 today. It is worse with walking. She feels that the medication as well as lying down are beneficial. The patient does report that she ran out of her medications yesterday, which would have been the day that she is due for her medication refills. Due to the holidays, she was unable to get in until today. She does report that she did take one of her 's hydrocodone last night to help her with her sleep. I explained to her that this is against her contract. She is not to take anybody else's medications. She knew she had an appointment today. She should have spaced her medications out to last until today. The patient verbalizes understanding. She knows what she did was not appropriate. ALLERGIES: No known drug allergies. CURRENT LIST OF MEDICATIONS: Gabapentin 300 mg t.i.d., oxycodone 5/325 q.i.d. p.r.n., aspirin, Protonix, Lexapro, Ambien, Estrace, Flexeril, atorvastatin, ibuprofen and lisinopril/hydrochlorothiazide. PATIENT'S PQRS: 1. She has osteoarthritic changes in her hips and her lumbar spine. She denies any rheumatoid arthritis. 2. Height is 5 feet 1 inch, weight is 139, BMI is 26. 3. Vital Signs: Blood pressure 131/82, pulse is 88, respirations 14, oxygen sat is 100. 4. Pain score is 7/10. 5. Denies dizziness, does not need help walking or standing, has not fallen in the last 3 months. 6. The patient is not on any blood thinners, but does take [place] [address] PAIN MANAGEMENT CONSULTATION Name: ALIREZA CAMARGO Room #: REG CARLOTTA Ramirez#: [id number] Admission: 05/19/19 Attend Phys: Kaitlin Fraser Discharge: Date of : 54 Report #: [id number] 7. Opiate therapy is greater than 6 weeks; therefore, an opioid signed contract is on the chart. Risk assessment is low. Functional assessment is 52/70. 8. Recreational drug use, she denies. She is a former smoker and does not drink alcohol. According to the prescription monitoring system, the patient is filling appropriately for her medications. She is due to fill those medicines today. According to the CDC guidelines, her morphine mEq per day is 30 MME well below their guidelines. We will check a random drug screen on this patient today. PHYSICAL EXAMINATION: GENERAL: This is alert and orientated quite loquacious in her speaking 68-year-old female reporting a pain score 7/10. Her affect is appropriate. HEENT: Normocephalic, atraumatic. Extraocular eye muscles are intact. Mucous membranes are moist. MUSCULOSKELETAL: She is without significant scoliosis, kyphosis or lordosis. She has pain in her lumbar back that radiates bilaterally into her calves and into her right foot following the L5-S1 dermatomal distribution. She walks with a slightly antalgic gait. IMPRESSION: 1. History of bilateral hip pain with recent right hip replacement. 2. Lumbar radiculopathy following the L5-S1 dermatomal distribution. 3. History of myofascial pain. 4. Low back pain. 5. Chronic pain, requiring opioid medications under opioid agreement. 6. Depression. 7. Osteoarthritis. We reviewed the fact that opiate medications are being used to provide analgesia adequate to support activities of daily living, not attempting to achieve a specific pain score on the 0-10 Visual Analog Scale. The current opiate medications are providing sufficient analgesia to allow the patient to participate in activities of daily living. The patient is not exhibiting any aberrant behavior suggestive of drug diversion. The patient is not having any adverse reactions to medications. The patient is not suffering from daytime somnolence or mental acuity changes. The patient is managing opiate-induced constipation with appropriate cuqv-fxw-[id number] agents and dietary considerations. The patient was counseled on concern for caution with operating a motor vehicle while using opiate medications. A physical exam was performed and the patient's functional status was evaluated. All patients with back pain were advised against the bed rest greater than 4 days and were advised to return to normal activities. Pain score assessment was noted and the treatment plan was reviewed with the patient. All current medications, both prescribed and OTC were reviewed and reconciled on the electronic medical record. Tobacco screening was accomplished and smoking [facility] [address] [place] [address] PAIN MANAGEMENT CONSULTATION Name: ALIREZA CAMARGO Room #: REG [facility]..#: [id number] Admission: 05/19/19 Attend Phys: Kaitlin Fraser Discharge: Date of : 54 Report #: [id number] cessation was advised when indicated. BMI was noted and diet/exercise modification was recommended for all patients following outside normal parameters. I reviewed with the patient today their responsibilities to safeguard prescription medications, reviewed their responsibility to utilize medications only as prescribed by the physician. They are to seek and receive pain medications only from 1 physician group ( [facility]). They are to use 1 pharmacy and keep the clinic informed if they change pharmacies. Their responsibilities include making followup visits in a timely fashion and to avoid abrupt discontinuation of medication usage. Their responsibilities further include bringing their medications (bottles from the pharmacy with residual pills) to the visit for possible confirmation of pill counts and the patient understands it is their responsibility to submit to random drug screens to ensure both that the medications prescribed are present, and that no other controlled substances are present. All prescriptions provided today were generated electronically. PLAN: 1. We discussed treatment options with the patient today. The patient reminded of her written opioid agreement that she is not to take any other person's medications. She did run out of her medicines yesterday and took one of her 's hydrocodone. I explained to her that is a violation of her contract. She is instructed to space out her medications as she knows she has appointment soon instead of running out of her medications and taking someone else's. The patient verbalizes understanding. She reports she will not do this in the future. 2. Scripts given today for her oxycodone 5/325, #120 for today and 4-week release. 3. The patient will be scheduled for a lumbar epidural steroid injection by Dr. Mark Mir within the next 2 weeks to help with her radicular symptoms. 4. We will obtain a urine drug screen on this patient today. 5. The patient is seen in collaboration with Dr. Fredo Mir. <ELECTRONICALLY SIGNED> By: Kaitlin Fraser 05/22/19 1420 [id number] [id number] Kaitlin Fraser /nt
== END ==
LOC: PAIN 06:48
DX: M25.551 Pain in right hip (principal); M25.552 Pain in left hip; M54.16 Radiculopathy, lumbar region; M79.18 Myalgia, other site; F32.9 Major depressive disorder, single episode, unspecified; M19.90 Unspecified osteoarthritis, unspecified site; Z96.641 Presence of right artificial hip joint; Z96.642 Presence of left artificial hip joint

== ENCOUNTER → 2019-05-31 | Outpatient (CLI) | payer OTHER ==
[~2019-05-31] VITALS: Ht 154.9 cm; Wt 61.6 kg
[2019-05-31 10:47] VITALS: BP 113/73
--- NOTE | 2019-05-31 11:06 | NUR ---
Pain Clinic Assessment: 1. History of Osteoarthritis: B/L HIPS History of Rheumatoid Arthritis: DENIES 2. Height: 5 ft. 1 in. 154.9 cm. Weight: 135.8 lb. oz. 61.598 kg. Patient's BMI: 25.7 3. Vital Signs: BP: 113/73 Pulse: 78 Resp: 14 Temp: 02 Sat: 98 ECG Mon: 4. Pain Intensity: 10 5. Fall Risk: Dizziness: N Needs help standing or walking: N Fallen in the last 3 months: N Fall risk comments: 6. Patient on Blood Thinner: None 7. History of Hypertension: Y 8. Opioid Therapy greater than 6 weeks: Y Opiate Contract Signed: 11/07/15 9. Risk Assessment Tool Provided: LOW RISK 0/0 10. Functional Assessment Tool: 11. Recreational Drug Use: Never Drug Type: Tobacco Use: Former Smoker Tobacco Type: Amount or Packs/day: How Many Years: Alcohol Use: No Frequency: Quant:
== END | disposition home or self-care (01) ==
LOC: PAIN 06:54
DX: M54.5 Low back pain (principal); G89.29 Other chronic pain; M16.11 Unilateral primary osteoarthritis, right hip; Z98.890 Other specified postprocedural states; Z79.899 Other long term (current) drug therapy; Z79.82 Long term (current) use of aspirin; Z87.891 Personal history of nicotine dependence

== ENCOUNTER → 2019-07-12 | Outpatient (CLI) | payer OTHER | LOC: MRI 07-04 13:09 | DX: M48.061 Spinal stenosis, lumbar region without neurogenic claudication (principal); M41.86 Other forms of scoliosis, lumbar region; M47.816 Spondylosis without myelopathy or radiculopathy, lumbar region; M51.26 Other intervertebral disc displacement, lumbar region; N28.1 Cyst of kidney, acquired ==

== ENCOUNTER → 2019-07-19 | Outpatient (CLI) | payer OTHER ==
[~2019-07-19] VITALS: Ht 154.9 cm; Wt 64.7 kg
[2019-07-19 10:01] VITALS: BP 120/79
--- NOTE | 2019-07-19 10:23 | NUR ---
Pain Clinic Assessment: 1. History of Osteoarthritis: B/L HIPS History of Rheumatoid Arthritis: DENIES 2. Height: 5 ft. 1 in. 154.9 cm. Weight: 142.6 lb. oz. 64.683 kg. Patient's BMI: 27.0 3. Vital Signs: BP: 120/79 Pulse: 80 Resp: 16 Temp: 02 Sat: 99 ECG Mon: 4. Pain Intensity: 7 5. Fall Risk: Dizziness: Y Needs help standing or walking: N Fallen in the last 3 months: N Fall risk comments: 6. Patient on Blood Thinner: None 7. History of Hypertension: Y 8. Opioid Therapy greater than 6 weeks: Y Opiate Contract Signed: 11/07/15 9. Risk Assessment Tool Provided: LOW RISK 0/0 10. Functional Assessment Tool: 11. Recreational Drug Use: Never Drug Type: Tobacco Use: Former Smoker Tobacco Type: Amount or Packs/day: How Many Years: Alcohol Use: No Frequency: Quant:
--- NOTE | 2019-07-20 08:58 | HPC ---
[facility] [place] [address] PAIN MANAGEMENT CONSULTATION Name: ALIREZA CAMARGO Room #: REG [facility] M.R.#: [id number] Admission: 07/19/19 Attend Phys: Kaitlin Fraser Discharge: Date of : 54 Report #: [id number] THIS REPORT FOR: cc: James Franco James A. DO Hocker, Amanda CNS ~ DATE OF SERVICE: 07/19/2019 CHIEF COMPLAINT: Low back pain. HISTORY OF PRESENT ILLNESS: This is a 68-year-old female, very pleasant returns to the pain clinic today for refill of her medications that she uses to help treat her ongoing low back pain. Today, she is reporting that the lumbar epidural steroid injection Dr. Mir gave her in May gave her 100% relief in her lower back and leg. She feels that is still very beneficial. Today, she is complaining of some soreness in her left buttock. She feels that it is muscle related very tight feeling. She is rating her pain score 7/10 today. 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 She feels that her overall medications are very beneficial, sometimes only requiring 3 oxycodone a day. She denies any problems with constipation as a result of this medication. ALLERGIES: No known drug allergies. CURRENT LIST OF MEDICATIONS: Oxycodone 5/325 p.r.n., gabapentin, aspirin, Protonix, Lexapro, Ambien, cyclobenzaprine, atorvastatin and lisinopril/hydrochlorothiazide. PQRS: 1. She has arthritic changes in her hips. Denies any rheumatoid arthritis. 2. Height is 5 feet 1. 3. Weight is 142, BMI is 27. Vital signs 120/79, pulse is 80, respirations 16, oxygen sat is 99. 4. Pain score 7/10. Complains of slight dizziness, does not need any help walking, has not fallen in the last 3 months. 5. The patient is not on any blood thinners, does take medicine for hypertension. Opioid therapy is greater than 6 weeks; therefore, an opioid signed contract is on the chart. Risk assessment tool is low. Functional assessment is 52/70. 6. Recreational drug use, she denies. She is a former smoker and does not drink alcohol. According to the prescription monitoring system, the patient is filling appropriately for her medications, filling them in a timely fashion. She is due to fill those medications this week. According to the [facility] guidelines, her [address] [address] PAIN MANAGEMENT CONSULTATION Name: ALIREZA CAMARGO Room #: REG CL M.R.#: [id number] Admission: 07/19/19 Attend Phys: Kaitlin Fraser Discharge: Date of : 54 Report #: [id number] morphine mEq is 30 morphine milliequivalents per day. PHYSICAL EXAMINATION: GENERAL: This is alert and orientated, very pleasant 68-year-old female who rates her pain score at 7/10 today. HEENT: Normocephalic, atraumatic. Extraocular eye muscles are intact. Mucous membranes are moist. NECK: Without adenopathy or JVD. EXTREMITIES: No swelling, no edema, no cyanosis. MUSCULOSKELETAL: She has pain in her lumbar spine that radiates into the L4-L5 region as well as the left buttock, tenderness in the paraspinal musculature over her left sacroiliac area. The patient's lower extremity strength judged to be 5/5 in all major muscle groups. IMPRESSION: 1. Lumbar radiculopathy at the L4-L5 dermatomal distribution. 2. History of bilateral hip pain with recent right hip replacement. 3. History of myofascial pain. 4. Low back pain. 5. Chronic pain, requiring opioid medications under terms of written opioid agreement. 6. Osteoarthritis. 7. Depression. We reviewed the fact that opiate medications are being used to provide analgesia adequate to support activities of daily living, not attempting to achieve a specific pain score on the 0-10 Visual Analog Scale. The current opiate medications are providing sufficient analgesia to allow the patient to participate in activities of daily living. The patient is not exhibiting any aberrant behavior suggestive of drug diversion. The patient is not having any adverse reactions to medications. The patient is not suffering from daytime somnolence or mental acuity changes. The patient is managing opiate-induced constipation with appropriate [id number] agents and dietary considerations. The patient was counseled on concern for caution with operating a motor vehicle while using opiate medications. PLAN: 1. We discussed treatment options with the patient today. The patient finds her oxycodone very beneficial in controlling her pain. She would like refills of that medication today. We will have Dr. Mir write these medications for oxycodone 5/325, #120 for today and 4-week release. 2. The patient denies any problems with constipation or daytime sleepiness as a result of this medication. [facility] [address] [place] [address] PAIN MANAGEMENT CONSULTATION Name: ALIREZA CAMARGO Room #: REG [place]#: [id number] Admission: 07/19/19 Attend Phys: Kaitlin Fraser Discharge: Date of : 54 Report #: [id number] 3. The patient is seen in collaboration with Dr. Fredo Mir who did see the patient as well today. <ELECTRONICALLY SIGNED> By: Kaitlin Fraser 07/20/19 0858 1059 [id number] Kaitlin Fraser /nt
== END ==
LOC: PAIN 07-14 06:49
DX: M54.16 Radiculopathy, lumbar region (principal); G89.29 Other chronic pain; Z87.39 Personal history of other diseases of the musculoskeletal system and connective tissue; Z79.899 Other long term (current) drug therapy; Z96.641 Presence of right artificial hip joint

== ENCOUNTER 2019-08-27 13:11 | Inpatient (IN) | payer OTHER ==
[2019-08-27] VITALS (11 sets, daily range): BP systolic 86–134; BP diastolic 44–99
[~2019-08-27] VITALS: Ht 154.9 cm; Wt 53.3 kg
[2019-08-27 13:57] LABS: ABSOLUTE NEUTROPHILS 7.4 thou/uL (1.4-8.2); BASOPHILS 0.1 % (0.0-2.0); EOSINOPHILS 0.2 % (0.0-3.0); HEMATOCRIT 32.5 % (37.0-47.0); HEMOGLOBIN 10.7 gm/dL (12.0-15.0); LYMPHOCYTES 7.9 % (24.0-44.0); MCH 32.1 pg (26.0-34.0); MCHC 32.9 g/dL (28.0-37.0); MCV 97.7 fL (80.0-100.0); MONOCYTES 7.9 % (1.0-8.0); PLATELET COUNT 217 thou/uL (150-400); POLYS 83.9 % (36.0-66.0); RBC 3.32 mil/uL (4.20-5.00); RDW 16.1 % (10.5-14.5); WBC 8.8 thou/uL (4.0-11.0)
[2019-08-27 14:07] LABS: ANION GAP 12 mmol/L (7-16); BUN 72 mg/dL (7-18); CHLORIDE 98 mmol/L (98-107); CO2 24 mmol/L (21-32); GLUCOSE 131 mg/dL (74-106); POTASSIUM 4.1 mmol/L (3.5-5.1); SODIUM 134 mmol/L (136-145)
[2019-08-27 14:13] LABS: APTT 29.4 Seconds (24.5-32.8); PROTIME 10.1 Seconds (9.3-11.4)
[2019-08-27 14:15] LABS: URINE BILIRUBIN 2+ (Negative); URINE BLOOD NEGATIVE (Negative); URINE CLARITY CLEAR; URINE COLOR YELLOW; URINE GLUCOSE-RANDOM* NEGATIVE (Negative); URINE KETONES TRACE (Negative); URINE LEUKOCYTES-REFLEX NEGATIVE (Negative); URINE NITRITE-REFLEX NEGATIVE (Negative); URINE PROTEIN (DIPSTICK) NEGATIVE (Negative); URINE SPECIFIC GRAVITY 1.025 (1.005-1.035); URINE UROBILINOGEN 0.2 E.U./dl (0.2-1.0)
[2019-08-27 14:16] LABS: ICTOTEST (BILI CONFIRMATORY) Negative (Negative)
[2019-08-27 14:18] LABS: ALBUMIN 2.7 g/dL (3.4-5.0); SGOT 63 U/L (15-37); SGPT 39 U/L (30-65); TOTAL BILIRUBIN 0.3 mg/dL (<0.1-1.0); TOTAL PROTEIN 6.7 g/dL (6.4-8.2); TROPONIN-I <0.06 ng/mL (<0.06)
[2019-08-27 14:24] LABS: AMP/METHAMP Negative (Negative); BARBITURATES Negative (Negative); BENZODIAZEPINES Negative (Negative); COCAINE Negative (Negative); METHADONE Negative (Negative); OPIATES POSITIVE (Negative); PCP Negative (Negative)
[2019-08-27] MEDS ORDERED: ESCITALOPRAM OX10 MG PO (15:28)
[2019-08-27] MEDS ORDERED: PANTOPRAZOLE SO40 M1 PO (15:29)
[2019-08-27] MEDS ORDERED: GABAPENTIN600 M1 PO (15:29)
[2019-08-27] MEDS ORDERED: CYCLOBENZAPRINE10 MG PO (15:29)
[2019-08-27] MEDS ORDERED: ATORVASTATIN CA20 MG PO (15:30)
[2019-08-27] MEDS ORDERED: ETODOLAC500 MG PO (15:30)
[2019-08-27 16:03] LABS: CALCIUM 7.2 mg/dL (8.5-10.1); CREATININE 3.9 mg/dL (0.6-1.0); POTASSIUM 3.6 mmol/L (3.5-5.1)
[2019-08-27 16:55] LABS: BE(vivo) -12.5 mmol/L (-2 to +3); HCO3 14.6 mmol/L (22.0-26.0); PCO2 38.3 mmHg (35.0-45.0); PO2 103.9 mmHg (80.0-100.0); sO2 96.6 % (92.0-98.0)
--- NOTE | 2019-08-27 20:50 | EKG ---
[facility] [place] [address] [place] [address] ELECTROCARDIOGRAM REPORT Name: ALIREZA CAMARGO Room #: 170-6 ADM IN M.R.#: [id number] Admission: 08/27/19 Attend Phys: Ava Swratz MD Discharge: Date of : 54 Report #: [id number] THIS REPORT FOR: cc: James Franco James A. DO Couchonnal, Luis F. MD ~ THIS REPORT FOR: //name// [facility] ED Test Date: 2019-08-27 Test Time: 13:35:29 Pat Name: ALIREZA CAMARGO Department: Room: 170 Gender: F Rate Setter: esheets : 1950 Requested By: Georgiana Peter Order Number: [id number] MD: Jameel Mckeon Measurements Intervals [place] Rate: 92 P: 68 KS: 161 QRS: 24 QRSD: 104 T: 60 QT: 374 QTc: 463 Interpretive Statements Sinus rhythm Minimal ST elevation, lateral leads Compared to ECG 02/06/2019 13:07:36 ST (T wave) deviation now present Electronically Signed On 08-27-2019 20:48:37 CDT by Jameel Mckeon [email or web address] <ELECTRONICALLY SIGNED> By: Jameel Mckeon MD 08/27/19 2048 1335 1335 Jameel Mckeon MD /EPI
[2019-08-27 21:57] LABS: ANION GAP 14 mmol/L (7-16); BUN 60 mg/dL (7-18); CALCIUM 7.7 mg/dL (8.5-10.1); CHLORIDE 105 mmol/L (98-107); CO2 16 mmol/L (21-32); CREATININE 3.1 mg/dL (0.6-1.0); GLUCOSE 123 mg/dL (74-106); POTASSIUM 3.8 mmol/L (3.5-5.1); SODIUM 135 mmol/L (136-145); TROPONIN-I <0.06 ng/mL (<0.06)
[2019-08-28] VITALS (18 sets, daily range): BP systolic 79–127; BP diastolic 41–76
[2019-08-28 00:09] LABS: BE(vivo) -9.6 mmol/L (-2 to +3); HCO3 16.5 mmol/L (22.0-26.0); PO2 68.7 mmHg (80.0-100.0); sO2 91.5 % (92.0-98.0)
[2019-08-28 00:10] LABS: pH 7.268 (7.360-7.450)
[2019-08-28 05:46] LABS: % SATURATION 11 % (20-39); IRON 27 ug/dL (50-170); TIBC 241 ug/dL (250-450)
[2019-08-28 06:13] LABS: FERRITIN 44 ng/mL (8-252)
[2019-08-28 06:50] LABS: CALCIUM 7.5 mg/dL (8.5-10.1); POTASSIUM 3.7 mmol/L (3.5-5.1)
[2019-08-28 06:59] LABS: CREATININE 1.8 mg/dL (0.6-1.0)
[2019-08-28 19:23] LABS: CALCIUM 8.2 mg/dL (8.5-10.1); POTASSIUM 3.2 mmol/L (3.5-5.1)
[2019-08-29 04:27] VITALS: BP 117/46
[2019-08-29 05:04] LABS: CALCIUM 8.3 mg/dL (8.5-10.1); CREATININE 0.9 mg/dL (0.6-1.0)
[2019-08-29 05:13] LABS: POTASSIUM 2.8 mmol/L (3.5-5.1)
[2019-08-29 06:03] LABS: HEMATOCRIT 25.5 % (37.0-47.0); MCH 32.2 pg (26.0-34.0); MCHC 32.9 g/dL (28.0-37.0); MCV 97.9 fL (80.0-100.0); RBC 2.6 mil/uL (4.20-5.00); RDW 15.8 % (10.5-14.5); WBC 4.5 thou/uL (4.0-11.0)
[2019-08-29 06:11] LABS: HEMOGLOBIN 8.4 gm/dL (12.0-15.0)
[2019-08-29 07:44] VITALS: BP 137/62
[2019-08-29 08:15] LABS: % SATURATION 12 % (20-39); IRON 31 ug/dL (50-170); TIBC 251 ug/dL (250-450)
[2019-08-29 08:38] LABS: FOLIC ACID 11.1 ng/mL (8.6-58.9); TSH 0.444 uIU/mL (0.358-3.740)
[2019-08-29 15:42] VITALS: BP 130/68
[2019-08-29 19:55] VITALS: BP 155/64
[2019-08-30 04:46] VITALS: BP 153/75
--- NOTE | 2019-08-30 07:11 | HC ---
[facility] [address] [address] CONSULTATION Name: ALIREZA CAMARGO Room #: 201-P ADM IN M.R.#: [id number] Admission: 08/27/19 Attend Phys: Ava Swartz MD Discharge: Date of : 54 Report #: [id number] THIS REPORT FOR: cc: James Franco James A. DO Al-Absi, Ahmed I. MD ~ CC: James Swartz DATE OF SERVICE: 08/28/2019 REASON FOR CONSULTATION: Acute kidney injury. REASON FOR PRESENTATION: Brought by her family members because of altered mental status. HISTORY OF PRESENT ILLNESS: A 68-year-old who does not recall what happened exactly. She suffers from chronic pain issues. She was brought by her family members because they were concerned about her mentation. Apparently, the patient is suffering from chronic pain and had been using more than what she is supposed to take when it comes to her oxycodone. She reported to poor oral intake on her presentation. She was too sleepy. Family members dropped her off and left in a hurry. She denies any prior knowledge of kidney disease. No chest pain. No cough. No hemoptysis. No nausea or vomiting. The patient was found to be extremely hypotensive, in acute kidney injury with a BUN of 72 and a creatinine of 5.0. I was consulted to manage her acute kidney injury. MEDICATIONS: Listed amongst her home medications oxycodone. Other medications, 1. Citalopram. 2. Gabapentin. 3. Lisinopril and hydrochlorothiazide. ALLERGIES: None. SOCIAL HISTORY: Ex-smoker. Denies drug or alcohol abuse. REVIEW OF SYSTEMS: GENERAL: No fever or chills. CARDIOVASCULAR: No chest pain or palpitation. NECK: Supple. PULMONARY: No cough or hemoptysis. GASTROINTESTINAL: No nausea, decreased oral intake. Denies nausea or vomiting. GENITOURINARY: No frequency, no urgency. MUSCULOSKELETAL: Chronic back pain. SKIN: No rash or ulcerations. NEUROLOGICAL: No headache, no numbness. [facility] [address] [place] [address] CONSULTATION Name: ALIREZA CAMARGO Room #: 201-P [facility] IN ..#: [id number] Admission: 08/27/19 Attend Phys: Ava Swartz MD Discharge: Date of : 54 Report #: [id number] FAMILY HISTORY: Her mom had some kidney disease. 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 PHYSICAL EXAMINATION: VITAL SIGNS: Blood pressure is 90/60, respiratory rate is 14, pulse rate is 89. HEAD AND NECK: No jugular venous distention. CHEST: Clear to auscultation bilaterally. CARDIOVASCULAR: Regular with no rub detected. ABDOMEN: Soft, nontender with no hepatosplenomegaly. EXTREMITIES: Lower extremities, no edema. LABORATORY VALUES: Reviewed. Sodium is 141, potassium is 3.7, chloride is 109, carbon dioxide is 18, anion gap is 14, BUN is 44, creatinine is 1.8. IMPRESSION AND PLAN: 1. Acute kidney injury due to hypotension and nonsteroidal anti-inflammatory medications. 2. Chronic narcotic abuse with an overdose. 3. From the renal side, her acute kidney injury was due to hypotension, combination of angiotensin converting enzyme inhibitor, hydrochlorothiazide, nonsteroidal anti-inflammatory medications. 4. She remains hypotensive. 5. Continue to hold blood pressure medications. 6. Continue to bolus with normal saline. 7. No need for sodium bicarbonate at this point given her acute kidney injury and this should rectify once the acute kidney injury resolved. 8. Primary team is addressing her other comorbid conditions. <ELECTRONICALLY SIGNED> By: Sydnie Tolentino MD 08/30/19 0711 [id number] [id number] Sydnie Tolentino MD /nt
[2019-08-30 07:20] VITALS: BP 148/66
[2019-08-30 08:26] LABS: HEMATOCRIT 26.7 % (37.0-47.0); HEMOGLOBIN 8.8 gm/dL (12.0-15.0)
[2019-08-30 10:45] VITALS: BP 145/64
[2019-08-30] MEDS ORDERED: MAGOX 400400 MG PO (10:56)
[2019-08-30] MEDS ORDERED: HYDROXYZINE HCL10 M2 PO (10:56)
[2019-08-30] MEDS ORDERED: K-DUR 20 MEQ T20 MEQ PO (10:56)
[2019-08-30] MEDS ORDERED: ACIDOPHILUS1 EAC4 PO (10:56)
[2019-08-30] MEDS ORDERED: PRINIVIL5 MG PO (11:00)
--- NOTE | 2019-08-30 11:56 | P ---
[facility] [place] [address] [place] [address] PROCEDURE REPORT Name: ALIREZA CAMARGO Room #: 201-P ADM IN M.R.#: [id number] Admission: 08/27/19 Attend Phys: Ava Swartz MD Discharge: Date of : 54 Report #: [id number] THIS REPORT FOR: cc: James Franco James A. DO Thesing, John A. MD ~ CC: James Swartz BRIEF HISTORY: The patient is a 69-year-old woman who was admitted to [facility] with evidence of altered mental status, acute renal injury, likely related to rhabdomyolysis. She has had a drop in hemoglobin, although she has not had obvious bleeding, her stools are Hemoccult positive. PREOPERATIVE DIAGNOSES: Anemia and Hemoccult-positive stools, new onset. POSTOPERATIVE DIAGNOSIS: Normal colonoscopy. MEDICATIONS: Deep sedation, propofol per anesthesia. SPECIMEN: None. ESTIMATED BLOOD LOSS: None. PROCEDURE: Colonoscopy to cecum and ileocecal valve. FINDINGS: Prior to propofol sedation, procedure of colonoscopy discussed with the patient as well as potential risks and its complications. She indicates she understands and desires to proceed. DESCRIPTION OF PROCEDURE: With the patient in left lateral decubitus position, digital examination was completed, which revealed no abnormalities. Subsequently, the Olympus video colonoscope was introduced into the rectum, advanced under direct vision to the cecum. This was done with minimal difficulty. Cecum was identified by the ileocecal valve and the appendiceal orifice. I was able to advance the scope into the mouth of the ileocecal valve, but could not deeply intubate. A normal villous pattern was seen. At that point, the scope was slowly withdrawn and careful circumferential views were obtained. Upon slow withdrawal of the scope, the prep was good. The mucosa was within normal limits, normal vascular pattern, normal light reflex. No neoplastic inflammatory changes were seen. The mucosa was completely normal. Diverticular disease was not seen. As the scope was withdrawn, she had normal colonic mucosa. In the area of the rectosigmoid junction, there was some patchy erythema. The mucosa was intact. It was not ulcerated. It had a smooth and benign appearance. This may have been some minor mucosal injury related to either her acute event with acidosis or possibly related to prep. The remainder of the rectum was unremarkable. Upon retroflexion, no abnormalities were seen. [address] [address] PROCEDURE REPORT Name: ALIREZA CAMARGO Room #: 201-P [facility] IN M.R.#: [id number] Admission: 08/27/19 Attend Phys: Ava Swartz MD Discharge: Date of : 54 Report #: [id number] Scope was withdrawn. The patient tolerated the procedure well. DISPOSITION: Bleeding site was not identified. No neoplastic lesions were seen. I would suggest average-risk colonoscopy screening in 10 years. As far as anemia and Heme-positive stools, please see upper GI report for additional comments. Last colonoscopy was more than 10 years ago. Withdrawal time from the cecum was 11 minutes 4 seconds. <ELECTRONICALLY SIGNED> By: Masoud Hawthorne MD 08/30/19 1156 0929 [id number] Masoud Hawthorne MD /nt
[2019-08-30 16:20] VITALS: BP 141/82
[2019-08-30 17:32] LABS: CALCIUM 8.5 mg/dL (8.5-10.1); CREATININE 1.1 mg/dL (0.6-1.0)
[2019-08-30 17:36] LABS: POTASSIUM 2.9 mmol/L (3.5-5.1)
[2019-08-30 18:53] VITALS: BP 152/73
[2019-08-31 03:23] VITALS: BP 143/73
[2019-08-31 05:15] LABS: HEMATOCRIT 25.3 % (37.0-47.0); HEMOGLOBIN 8.5 gm/dL (12.0-15.0)
[2019-08-31 06:10] LABS: CALCIUM 8.2 mg/dL (8.5-10.1); POTASSIUM 3.5 mmol/L (3.5-5.1)
[2019-08-31 07:15] VITALS: BP 157/74
[2019-08-31 10:22] VITALS: BP 157/74
--- NOTE | 2019-08-31 11:08 | P ---
[facility] [address] [place] [address] PROCEDURE REPORT Name: ALIREZA CAMARGO Room #: 201-P [facility] IN M.R.#: [id number] Admission: 08/27/19 Attend Phys: Ava Swartz MD Discharge: Date of : 54 Report #: [id number] THIS REPORT FOR: cc: James Franco James A. DO Thesing, John A. MD ~ CC: James Swartz BRIEF HISTORY: The patient is a 68-year-old woman who was admitted with acute injury and what appeared to be rhabdomyolysis. She has had a drop in hemoglobin and although she has not had overt GI bleeding, her stools are Hemoccult positive. She does have symptoms of dysphagia. She also has a history of heartburn symptoms, but stopped taking medicine last summer as she was taking Zantac and it was pulled from the market. PREOPERATIVE DIAGNOSES: Anemia, Hemoccult-positive stool, dysphagia and reflux symptoms. POSTOPERATIVE DIAGNOSES: 1. Moderately tight ulcerated stricture, gastroesophageal junction. 2. Severe grade D erosive esophagitis. 3. A 4 cm sliding type hiatus hernia. 4. Multiple, too numerous to count small ulcers in the antrum. MEDICATIONS: Deep sedation with propofol per anesthesia. SPECIMENS: 1. Biopsies of antral ulcer. 2. Biopsies of stricture, GE junction. PROCEDURE: EGD with balloon dilation of esophageal stricture and biopsies. FINDINGS: Prior to propofol sedation, the procedure of upper endoscopy and potential dilation was discussed with the patient as well as potential risks and its complications. She indicates she understands and desires to proceed. DESCRIPTION OF PROCEDURE: With the patient in left lateral decubitus position, the Olympus video endoscope was inserted in the cervical esophagus under direct vision without difficulty. Examination of this organ through its entire length revealed normal esophageal mucosa in the proximal and down into the mid esophagus. However, in the proximal segment of the esophagus, there was extensive ulceration consistent with a grade D erosive esophagitis. Endoscopically, the features were consistent with reflux disease. No mass lesions were seen. The GE junction was circumferentially ulcerated, but no mass lesions were seen. Initially, the stricture was too tight to allow passage of the scope. We dilated with balloon using 8, 9 and 10; however, the balloons [facility] [address] [place] [address] PROCEDURE REPORT Name: MARY JOALIREZA Room #: 201-P [facility] IN .R.#: [id number] Admission: 08/27/19 Attend Phys: Ava Swartz MD Discharge: Date of : 54 Report #: [id number] were too small. We then used 10, 11, 12, and there was some tightness with a 12 mm balloon. We then moved to 12, 13.5 and 15 and had successful dilation of the stricture. In addition, I would comment when we initially ____ the scope, there was some fluid in the esophagus, which had to be suctioned away. Once we got this stricture dilated and get the scope into the stomach, there was about 25 mL of fluid in the fundus of the stomach, which was aspirated away as well. In addition, she had a 4 cm sliding type hiatus hernia. The mucosal hernia was unremarkable. The scope was advanced further into the stomach, was examined on end view as well as retroflexed views. There were multiple punctate ulcers in the antrum of the stomach. They were no more than 2-3 mm. They were too numerous to count. There was no evidence of bleeding, but certainly this could be the source of Hemoccult-positive stools. Multiple biopsies were obtained. Upon retroflexion, the hiatus hernia was noted. No other abnormalities were seen. The pylorus, duodenal bulb, and postbulbar duodenal sweep were inspected and noted to be unremarkable. At that point, the scope was slowly withdrawn and careful circumferential views confirmed the above findings. The patient tolerated the procedure well. DISPOSITION: The patient with findings of severe esophagitis. She has significant reflux disease and reflux was observed during this examination. She was dilated. Biopsies were obtained. We will follow up on biopsies. Will be placed on twice daily PPI. She will need a followup EGD after healing of the esophagitis to exclude Roldan's. In addition, she may require further dilation. We will proceed with colonoscopy. <ELECTRONICALLY SIGNED> By: Masoud Hawthorne MD 08/31/19 1108 [id number] [id number] Masoud Hawthorne MD /nt
[2019-08-31 11:30] VITALS: BP 156/75
[2019-08-31] MEDS ORDERED: PRINIVIL10 MG PO (11:44)
[2019-08-31] MEDS ORDERED: SOD CITRATE-CIT15 ML PO (15:47)
[2019-08-31] MEDS ORDERED: CARAFATE 11 GM/10 M1 PO (15:47)
[2019-08-31] MEDS ORDERED: ONDANSETRON HCL4 M3 DISSOLVE (15:47)
== END 2019-08-31 16:40 | disposition home health service (06) | DRG 917 ==
LOC: ER 13:11 → EROBS 16:11 → ICU 16:11 → EROBS 20:55 → ICU 21:11 → 3W 08-28 17:44 → 2N 08-28 23:15
PROVIDERS: Emergency Medicine Emergency Medical Services; Hospitalist; Nurse Practitioner Family; ADMIT Internal Medicine
PROC: 0DJD8ZZ Inspection of Lower Intestinal Tract, Via Natural or Artificial Opening Endoscopic (ICD-10-PCS; principal; 2019-08-30)
PROC: 0DB68ZX Excision of Stomach, Via Natural or Artificial Opening Endoscopic, Diagnostic (ICD-10-PCS; 2019-08-31)
PROC: 0D758ZZ Dilation of Esophagus, Via Natural or Artificial Opening Endoscopic (ICD-10-PCS; 2019-08-31)
DX: T40.2X1A Poisoning by other opioids, accidental (unintentional), initial encounter (principal); G92 Toxic encephalopathy; E43 Unspecified severe protein-calorie malnutrition; K22.11 Ulcer of esophagus with bleeding; K25.4 Chronic or unspecified gastric ulcer with hemorrhage; N17.9 Acute kidney failure, unspecified; E87.4 Mixed disorder of acid-base balance; M62.82 Rhabdomyolysis; E87.2 Acidosis; I10 Essential (primary) hypertension; E78.00 Pure hypercholesterolemia, unspecified; F32.9 Major depressive disorder, single episode, unspecified; G89.29 Other chronic pain; M25.559 Pain in unspecified hip; K21.9 Gastro-esophageal reflux disease without esophagitis; E86.0 Dehydration; D64.9 Anemia, unspecified; E78.5 Hyperlipidemia, unspecified; M19.90 Unspecified osteoarthritis, unspecified site; I95.9 Hypotension, unspecified; R13.10 Dysphagia, unspecified; Z96.649 Presence of unspecified artificial hip joint; E87.6 Hypokalemia; F43.22 Adjustment disorder with anxiety; E83.42 Hypomagnesemia; K44.9 Diaphragmatic hernia without obstruction or gangrene; Z79.891 Long term (current) use of opiate analgesic; Z90.49 Acquired absence of other specified parts of digestive tract; Z90.710 Acquired absence of both cervix and uterus; Z87.891 Personal history of nicotine dependence; Z84.1 Family history of disorders of kidney and ureter; Z79.1 Long term (current) use of non-steroidal anti-inflammatories (NSAID); Y92.89 Other specified places as the place of occurrence of the external cause; Z86.010 Personal history of colon polyps; Z20.828 Contact with and (suspected) exposure to other viral communicable diseases
CPT/HCPCS: 10078; 10081; 10196; 62110; 62900

== ENCOUNTER → 2019-09-13 | Outpatient (CLI) | payer OTHER ==
[~2019-09-13] VITALS: Ht 154.9 cm; Wt 65.0 kg
[~2019-09-13] MED LIST changes: +ACIDOPHILUS1 EAC4 PO; +ATORVASTATIN CA20 MG PO; +CARAFATE 11 GM/10 M1 PO; +CYCLOBENZAPRINE10 MG PO; +ESCITALOPRAM OX10 MG PO; +GABAPENTIN600 M1 PO; +HYDROXYZINE HCL10 M2 PO; +K-DUR 20 MEQ T20 MEQ PO; +MAGNESIUM400 MG PO; +MAGOX 400400 MG PO; +NEURONTIN600 MG PO; +ONDANSETRON HCL4 M2 PO; +ONDANSETRON HCL4 M3 DISSOLVE; +OXYCODONE-APAP1 EAC4 PO; +PANTOPRAZOLE SO40 M1 PO; +POTASSIUM20 PO; +PRINIVIL10 MG PO; +PRINIVIL5 MG PO; +SOD CITRATE-CIT15 ML PO
[2019-09-13 10:44] VITALS: BP 118/81
--- NOTE | 2019-09-13 11:07 | NUR ---
Pain Clinic Assessment: 1. History of Osteoarthritis: B/L HIPS History of Rheumatoid Arthritis: DENIES 2. Height: 5 ft. 1 in. 154.9 cm. Weight: 143.2 lb. oz. 64.955 kg. Patient's BMI: 27.1 3. Vital Signs: BP: 118/81 Pulse: 102 Resp: 16 Temp: 02 Sat: 100 ECG Mon: 4. Pain Intensity: 7 5. Fall Risk: Dizziness: N Needs help standing or walking: Y Fallen in the last 3 months: N Fall risk comments: 6. Patient on Blood Thinner: None 7. History of Hypertension: Y 8. Opioid Therapy greater than 6 weeks: Y Opiate Contract Signed: 11/07/15 9. Risk Assessment Tool Provided: LOW RISK 0 10. Functional Assessment Tool: 11. Recreational Drug Use: Past greater than 3 mos Drug Type: Tobacco Use: Never Smoker Tobacco Type: Amount or Packs/day: How Many Years: Alcohol Use: No Frequency: Quant:
--- NOTE | 2019-09-14 08:06 | HPC ---
[facility] [place] [address] PAIN MANAGEMENT CONSULTATION Name: ALIREZA CAMARGO Room #: REG CARLOTTA Javon.#: [id number] Admission: 09/13/19 Attend Phys: Kaitlin Fraser Discharge: Date of : 54 Report #: [id number] THIS REPORT FOR: cc: James Franco James A. DO Hocker, Amanda CNS ~ CC: Bisi Mir MD DATE OF SERVICE: 09/13/2019 CHIEF COMPLAINT: Low back pain, lumbar radiculopathy, and left hip pain. HISTORY OF PRESENT ILLNESS: This is a 69-year-old female who returns to the [facility] today for refill of her opioid medications. She was recently hospitalized with some electrolyte imbalances here at [facility] and also had esophagitis. She underwent numerous procedures. Several of her oral medications were changed. She was taken off all of her opioid medications while in the hospital. Per her report, she did go through a significant withdrawal since she has been discharged. She did see her primary care physician. He told her per her report that it was okay to resume her Percocet tablets that Dr. Mark Mir does prescribe for her. Today, she is reporting a pain score of 7/10 with her current pain regimen back in place. She states that she is having pain in her lower back that radiates into her left buttocks into her left hip. She would like to schedule another epidural steroid injection in the near future. She also reports that she is planning to have her left hip replaced by Dr. Deleon in January or February. The patient reports that her pain is worse with walking, standing, and any activity. She does use a cane at all times. She has not fallen since we have last seen her. Her report of pain is a burning, aching, constant pain and the medications as well as lying down are beneficial. ALLERGIES: No known drug allergies. CURRENT LIST OF MEDICATIONS: Oxycodone 5/325 p.r.n. q.i.d., gabapentin 600 mg b.i.d., atorvastatin, Zofran, lisinopril, Mag-Ox, Protonix, escitalopram, and estradiol. PQRS: 1. She has osteoarthritis in her bilateral hips as well as her lumbar spine. She denies any rheumatoid arthritis. 2. Height is 5 feet 1 inch, weight is 143, BMI is 27. 3. Blood pressure is 118/81, pulse is 102, respirations 16, oxygen sat is 100. 4. Pain score is 7/10. 5. Denies dizziness. Does use a cane for ambulation, has not fallen in the last 3 [place] [address] PAIN MANAGEMENT CONSULTATION Name: ALIREZA CAMARGO CLAUDY Room #: REG CARLOTTA Ramirez#: [id number] Admission: 09/13/19 Attend Phys: Kaitlin Fraser Discharge: Date of : 54 Report #: [id number] 6. The patient is not on any blood thinners, but does have history of hypertension. Her opioid therapy is greater than 6 weeks; therefore, an opioid signed contract is on the chart. Risk assessment tool is low. Functional assessment is 52/70. She does not use recreational drugs. She is not a smoker and does not drink alcohol. According to the prescription monitoring system, the patient last filled her medications in August 17 and is due to fill those again today. PHYSICAL EXAMINATION: GENERAL: She is a well-developed, well-nourished, very anxious 69-year-old female who appears her stated age, placing her current pain score at 7/10 today. HEENT: Normocephalic, atraumatic. Extraocular eye muscles are intact. Mucous membranes are moist. She does have glasses on. NECK: Without adenopathy or JVD. EXTREMITIES: Upper extremity strength judged to be 5/5 in all major muscle groups. Her lower extremity, she has discomfort in her lower back that radiates down her left leg following the L4-5 dermatomal distribution. IMPRESSION: 1. Lumbar radiculopathy at the L4-5 dermatomal distribution. 2. History of bilateral hip pain with recent right hip replacement. 3. History of myofascial pain. 4. Low back pain. 5. Chronic opioid medications, under terms of written agreement. 6. Osteoarthritis. We reviewed the fact that opiate medications are being used to provide analgesia adequate to support activities of daily living, not attempting to achieve a specific pain score on the 0-10 Visual Analog Scale. The current opiate medications are providing sufficient analgesia to allow the patient to participate in activities of daily living. The patient is not exhibiting any aberrant behavior suggestive of drug diversion. The patient is not having any adverse reactions to medications. The patient is not suffering from daytime somnolence or mental acuity changes. The patient is managing opiate-induced constipation with appropriate marg-dyb-pwiivdr agents and dietary considerations. The patient was counseled on concern for caution with operating a motor vehicle while using opiate medications. A physical exam was performed and the patient's functional status was evaluated. All patients with back pain were advised against the bed rest greater than 4 days and were advised to return to normal activities. Pain score assessment was noted and the treatment plan was reviewed with the patient. All current medications, both prescribed and OTC were reviewed and reconciled on the electronic medical record. Tobacco screening was accomplished and smoking cessation was advised when indicated. BMI was noted and diet/exercise [facility] [address] [place] [address] PAIN MANAGEMENT CONSULTATION Name: ALIREZA CAMARGO Room #: REG [facility] M..#: [id number] Admission: 09/13/19 Attend Phys: Kaitlin Fraser Discharge: Date of : 54 Report #: [id number] modification was recommended for all patients following outside normal parameters. I reviewed with the patient today their responsibilities to safeguard prescription medications, reviewed their responsibility to utilize medications only as prescribed by the physician. They are to seek and receive pain medications only from 1 physician group ( [facility]). They are to use 1 pharmacy and keep the clinic informed if they change pharmacies. Their responsibilities include making followup visits in a timely fashion and to avoid abrupt discontinuation of medication usage. Their responsibilities further include bringing their medications (bottles from the pharmacy with residual pills) to the visit for possible confirmation of pill counts and the patient understands it is their responsibility to submit to random drug screens to ensure both that the medications prescribed are present, and that no other controlled substances are present. All prescriptions provided today were generated electronically. PLAN: 1. We discussed treatment options with the patient today. The patient has recently restarted her previous opioid medications that she was taking prior to her hospitalization. She states she did go through withdrawal while in the hospital. According to the records, they had stopped her medications and gave her Narcan, though she was not found to have any overdose. There were electrolyte imbalances per the reports. The patient taking oxycodone 5/325 four times a day, spaced evenly throughout the day. The patient has resumed this for 2 weeks without difficulty. We will have Dr. Fredo Mir refill this medication for #120 of the 5/325 for today and 4-week release. 2. The patient is requesting another epidural steroid injection. She obtained significant relief of 80% for several months. Her last injection was performed in May. We discussed that if she has an epidural in a few weeks, she will not be able to have another one until after her hip replacement. The patient verbalizes understanding. She reports she was not able prior to her previous surgery as well. We will make an appointment for a lumbar epidural with Dr. Mir on October 03. 3. The patient dismissed to home, seen today in collaboration with Dr. Fredo Mir. <ELECTRONICALLY SIGNED> By: Kaitlin Fraser 09/14/19 0806 1213 1347 Kaitlin Fraser /jennifer
== END ==
LOC: PAIN 07:48
DX: M54.16 Radiculopathy, lumbar region (principal); F11.20 Opioid dependence, uncomplicated; M19.90 Unspecified osteoarthritis, unspecified site; M79.18 Myalgia, other site; Z96.643 Presence of artificial hip joint, bilateral; M25.552 Pain in left hip; Z87.891 Personal history of nicotine dependence; Z79.899 Other long term (current) drug therapy

== ENCOUNTER 2019-09-29 17:14 | Inpatient (IN) | payer OTHER ==
[~2019-09-29] VITALS: Ht 154.9 cm; Wt 70.4 kg
[~2019-09-29 17:14] MED LIST changes: +PROTONIX40 M2 PO
[2019-09-29 17:17] VITALS: BP 86/42
[2019-09-29 17:47] LABS: HEMATOCRIT 29.2 % (37.0-47.0); HEMOGLOBIN 9.4 gm/dL (12.0-15.0); MCH 30.5 pg (26.0-34.0); MCHC 32.1 g/dL (28.0-37.0); MCV 94.9 fL (80.0-100.0); RBC 3.08 mil/uL (4.20-5.00); RDW 15.2 % (10.5-14.5); WBC 11.4 thou/uL (4.0-11.0)
[2019-09-29 17:53] LABS: ANION GAP 10 mmol/L (7-16); BUN 51 mg/dL (7-18); CALCIUM 8.1 mg/dL (8.5-10.1); CHLORIDE 92 mmol/L (98-107); CO2 26 mmol/L (21-32); CREATININE 5.1 mg/dL (0.6-1.0); GLUCOSE 120 mg/dL (74-106); POTASSIUM 4.6 mmol/L (3.5-5.1); SODIUM 128 mmol/L (136-145)
[2019-09-29 17:59] LABS: URINE BILIRUBIN 3+ (Negative); URINE BLOOD NEGATIVE (Negative); URINE CLARITY CLEAR; URINE COLOR YELLOW; URINE GLUCOSE-RANDOM* NEGATIVE (Negative); URINE KETONES NEGATIVE (Negative); URINE LEUKOCYTES-REFLEX TRACE (Negative); URINE NITRITE-REFLEX NEGATIVE (Negative); URINE PROTEIN (DIPSTICK) NEGATIVE (Negative); URINE SPECIFIC GRAVITY 1.025 (1.005-1.035); URINE UROBILINOGEN 0.2 E.U./dl (0.2-1.0)
[2019-09-29 18:02] LABS: TROPONIN-I <0.06 ng/mL (<0.06)
[2019-09-29 18:02] LABS: ICTOTEST (BILI CONFIRMATORY) Positive (Negative)
[2019-09-29 18:09] LABS: AMP/METHAMP Negative (Negative); BARBITURATES Negative (Negative); BENZODIAZEPINES Negative (Negative); COCAINE Negative (Negative); METHADONE Negative (Negative); OPIATES POSITIVE (Negative); PCP Negative (Negative)
[2019-09-29 18:56] LABS: BE(vivo) -8.4 mmol/L (-2 to +3); HCO3 18.8 mmol/L (22.0-26.0); PCO2 46.4 mmHg (35.0-45.0)
[2019-09-29 18:59] LABS: pH 7.226 (7.360-7.450)
[2019-09-29 20:00] VITALS: BP 105/55
--- NOTE | 2019-09-29 20:01 | NUR ---
CALLED TO GIVE REPORT AND WAS TOLD NURSE WILL CALL IN 5 MINUTES, SHE WAS WITH ANOTHER PT
[2019-09-29 20:14] VITALS: BP 102/55
[2019-09-29 21:02] VITALS: BP 118/97
[2019-09-29 23:46] VITALS: BP 104/56
[2019-09-30 04:41] VITALS: BP 104/50
[2019-09-30 04:50] LABS: HEMATOCRIT 27.5 % (37.0-47.0); HEMOGLOBIN 8.8 gm/dL (12.0-15.0); MCH 30.4 pg (26.0-34.0); MCV 95.1 fL (80.0-100.0); RBC 2.89 mil/uL (4.20-5.00); RDW 15.7 % (10.5-14.5); WBC 7.7 thou/uL (4.0-11.0)
[2019-09-30 05:38] LABS: CALCIUM 7.8 mg/dL (8.5-10.1); CREATININE 3.4 mg/dL (0.6-1.0); POTASSIUM 4.5 mmol/L (3.5-5.1)
--- NOTE | 2019-09-30 06:35 | NUR ---
PT WAS AN ER ADMIT. PT IS CONFUSED, DEHYDRATED. PT IS STABLE UPON ARRIVAL TO THE FLOOR. PT PRESENTS WITH CONFUSED, UNABLE TO COMPLETED ADMISSION DATA WITH PATIENT. ADMISSION ASSESSMENT COMPLETED. NO SIGN OF DISTRSS NOTED IN PT. PT IS NPO. SCHEDULED MEDS ADMINISTERED. FALL PRECAUTION IN PLACE. PT IS RETAINING URINE, BLADDER SCAN > 800. WALKER CATHETHER INSERTED. DENIES ANY PAIN. JERKING MOVEMENTS NOTED. CONTINUE TO MONITOR PATIENT. NO FURTHER NEEDS AT THIS TIME.
[2019-09-30 07:10] VITALS: BP 90/55
[2019-09-30 09:37] LABS: % SATURATION 28 % (20-39); IRON 91 ug/dL (50-170); TIBC 326 ug/dL (250-450)
[2019-09-30 09:38] LABS: ALBUMIN 2.6 g/dL (3.4-5.0); DIRECT BILIRUBIN 0.2 mg/dL (<0.1-0.2); TOTAL BILIRUBIN 0.4 mg/dL (<0.1-1.0); TOTAL PROTEIN 6.3 g/dL (6.4-8.2)
[2019-09-30 10:02] LABS: TSH 0.792 uIU/mL (0.358-3.740)
[2019-09-30 11:00] VITALS: BP 102/59
--- NOTE | 2019-09-30 15:36 | NUR ---
PERFORMED A SWALLOW STUDY TEST AT 1345. PT SITTING >30 DEGREES. PT SITTING UP IN BED. PT TOOK SIPS OF WATER. PT TOLERATED SIPS OF WATER WELL. PT DID NOT COUGH OR SPIT WATER UP. PT TOLERATED SWALLOWING PILL WELL. PT DID NOT COUGH OR SPIT PILL UP. INFORMED DR. CARRION. DR. CARRION STATED UNDERSTANDING.
[2019-09-30 16:20] VITALS: BP 117/57
[2019-09-30 17:59] LABS: HEMATOCRIT 27.1 % (37.0-47.0); HEMOGLOBIN 8.8 gm/dL (12.0-15.0)
--- NOTE | 2019-09-30 18:13 | NUR ---
ASSUMMED PT CARE AT APPROXIMATELY 0700. PT AWAKE AND ORIENTED TO PERSON, PLACE, AND TIME. FREQUENT REORIENTATION PROVIDED. ASSESSMENT CHARTED. FALL PRECAUTIONS IN PLACE. PT DENIES HAVING CHEST PAIN. PT DENIES HAVING SOB. PT STATED SHE HAD A HEADACHE. INFORMED DR. CARRION. DR. CARRION ORDERED NEW MEDS. NEW MEDS IMPLEMENTED. WILL CONTINUE TO MONITOR PAIN. PERFORMED BEDSIDE SWALLOW STUDY. SEE PREVIOUS NOTE REGAURDING SWALLOW STUDY. PT CONTINUING TO TOLERATE FOOD AND FLUIDS WELL-NO COUGHING OR SPITTING UP. 24 HR URINE COLLECTION FOLLOWED. STARTED AT 0945. COLLECTION BUCKET AND WALKER CATH SITTING ON ICE. INFORMED DR. CARROIN OF PT'S LOW BP IN AM. DR. CARRION ORDERED FLUID BOLUS. FLUID BOLUS IMPLEMENTED. VITAL SIGNS STABLE. PT COMFORTABLE IN BED. PT DENIES HAVING FURTHER CONCERNS.
[2019-09-30 19:14] VITALS: BP 156/83
[2019-09-30 22:07] LABS: HBsAG-EMPLOYEE EXPOSURE Negative (Negative); HCV AB-EMPLOYEE EXPOSURE <0.1 (0.0-0.9)
--- NOTE | 2019-10-01 00:51 | NUR ---
TOOK OVER CARE AT 2300. PT RESTING IN BED. CONTINUOUS PULSE OX, IVF AND WALKER INTACT. BED ALARM ON.
[2019-10-01 04:25] VITALS: BP 141/86
[2019-10-01 04:39] LABS: ABSOLUTE NEUTROPHILS 2.8 thou/uL (1.4-8.2); BASOPHILS 0.1 % (0.0-2.0); EOSINOPHILS 0.2 % (0.0-3.0); HEMATOCRIT 26.2 % (37.0-47.0); HEMOGLOBIN 8.7 gm/dL (12.0-15.0); LYMPHOCYTES 13.6 % (24.0-44.0); MCH 31.3 pg (26.0-34.0); MCHC 33.3 g/dL (28.0-37.0); MCV 94.1 fL (80.0-100.0); MONOCYTES 8.2 % (1.0-8.0); PLATELET COUNT 221 thou/uL (150-400); POLYS 77.9 % (36.0-66.0); RBC 2.79 mil/uL (4.20-5.00); RDW 14.6 % (10.5-14.5); WBC 3.5 thou/uL (4.0-11.0)
[2019-10-01 05:02] LABS: CALCIUM 8.3 mg/dL (8.5-10.1); PHOSPHORUS 1.9 mg/dL (2.5-4.9); POTASSIUM 3.6 mmol/L (3.5-5.1)
[2019-10-01 05:03] LABS: CREATININE 1.1 mg/dL (0.6-1.0)
[2019-10-01 07:15] VITALS: BP 117/60
--- NOTE | 2019-10-01 09:07 | NUR ---
patient resting in bed alert xs2-3 had large soft brown bowel movement pt is incont, pt cleaned and bed linens changed. eating breakfast.
--- NOTE | 2019-10-01 12:56 | NUR ---
PT RESTING IN BED ATE LUNCH TOOK MEDS NO PAIN OR RESP DISTRESS AT THIS TIME. 24 URINE CULTURE TAKEN TO LAB.
--- NOTE | 2019-10-01 14:33 | NUR ---
PATIENT RESTING IN BED PT YELLS AT STAFF FAMILY AND FRIENDS. PT IS NOT HAPPY STATES FAMILY OWES HER.
--- NOTE | 2019-10-01 14:43 | NUR ---
IV FLUIDS DCD PER DOCTOR. CALLED PATIENTS GAVE UPDATE.
--- NOTE | 2019-10-01 15:47 | NUR ---
CONSULT CALLED TO DR FIGUEROA / SHREE BY SURVEYING TECHNICIAN. ALSO STOOL CULTURE FOR OCCULT BLOOD OBTAINED AND TAKEN TO LAB.
--- NOTE | 2019-10-01 16:18 | NUR ---
PATIENT GOT BED BATH. SERVICE COORDINATOR ASSISTED HER.
[2019-10-01 17:41] LABS: HEMATOCRIT 24.6 % (37.0-47.0); HEMOGLOBIN 8.1 gm/dL (12.0-15.0)
--- NOTE | 2019-10-01 18:26 | NUR ---
SPOKE WITH FATOU PATIENT'S EXPLAINED PATIENT WOULD BE MOVING TO [facility] ROOM 450 GAVE REPORT TO [facility] NURSE. ALL BELONGINGS PACKED TO BE SENT WITH PATIENT
[2019-10-01 19:26] VITALS: BP 128/62
--- NOTE | 2019-10-02 02:35 | NUR ---
PATIENT AOX1 CONFUSED AND FORGETFUL. PATIENT HAD INCREASED ANXIETY. PATIENT WANTED TO TALK TO DR. FIGUEROA, DR. FIGUEROA PAGED AWAITING FOR PHONE CALL. PATIENT WAS GETTING UPSET SAYING SHE WILL HARM HERSELF, IF DR. FIGUEROA DOES NOT COME TO SEE HER. PATIENT INFORMED ITS LATE AT NIGHT BUT PATIENT STARTED YELLING AND CURSING THE STAFF. PATIENT NOTIIFIED THAT WAS PAGED. PATIENT CONTINUED TO SAY SHE WILL TAKE THE WALKER AND IV OUT AND RUN DOWN THE HALLWAY. PATIENT WAS VERBARLY ABUSIVE TO STAFF. CALLED [employer] POLISHER HELPER NEW ORDER OF ATIVAN AND 1:1. PATIENT SEEM TO BE TALKING TO UNSEEN OTHER THIS SHIFTAND ANSWERING TO INTERNAL STIMULI. PATIENT DECLINED PAIN MEDS. PATIENT HAS A SITTER AT THIS TIME. PATIENT ASLEEP AT THIS TIME BREATHING REGULAR AND UNLABOURED.
[2019-10-02 04:26] VITALS: BP 160/80
[2019-10-02 05:44] LABS: ABSOLUTE NEUTROPHILS 4.6 thou/uL (1.4-8.2); BASOPHILS 0.3 % (0.0-2.0); EOSINOPHILS 0.1 % (0.0-3.0); HEMATOCRIT 24.6 % (37.0-47.0); HEMOGLOBIN 8.2 gm/dL (12.0-15.0); LYMPHOCYTES 11.9 % (24.0-44.0); MCH 30.8 pg (26.0-34.0); MCHC 33.3 g/dL (28.0-37.0); MCV 92.6 fL (80.0-100.0); MONOCYTES 6.7 % (1.0-8.0); PLATELET COUNT 243 thou/uL (150-400); RBC 2.66 mil/uL (4.20-5.00); RDW 14.2 % (10.5-14.5); WBC 5.7 thou/uL (4.0-11.0)
--- NOTE | 2019-10-02 05:55 | HC ---
[facility] [place] [address] CONSULTATION Name: ALIREZA CAMARGO Room #: 450-P ADM IN M.R.#: [id number] Admission: 09/29/19 Attend Phys: Omid Tomlinson MD Discharge: Date of : 54 Report #: [id number] THIS REPORT FOR: cc: James Franco James A. DO Al-Absi, Ahmed I. MD ~ CC: James Tomlinson REASON FOR CONSULTATION: Acute kidney injury. REASON FOR PRESENTATION: Changed mental status. HISTORY OF PRESENT ILLNESS: This is obtained from the medical chart. The patient is not able to provide me with the history. She is a 69-year-old with history of hypertension, hyperlipidemia, chronic pain disorder. She is also known to have chronic opioid usage. I have treated this patient back in August for a similar episode. She had an acute kidney injury. This had resolved. It looks like that the patient was taking more than what she was supposed when it comes to her narcotics. She presented with confusion and was found to have an acute kidney injury, mandating a Nephrology consultation. She is completely confused and as stated above, is not able to provide me with any details. Listed amongst her outpatient medications, gabapentin, etodolac. She is also maintained on lisinopril and hydrochlorothiazide. REVIEW OF SYSTEMS: Unobtainable given the patient's current mental status. PAST MEDICAL HISTORY: 1. Hypertension. 2. Hyperlipidemia. 3. Depression. 4. Peptic ulcer disease. 5. Chronic narcotic abuse. PAST SURGICAL HISTORY: 1. Cholecystectomy. 2. Right hip replacement and facelift. SOCIAL HISTORY: No recreational drug use. FAMILY HISTORY: Unobtainable given the patient's confusion. ALLERGIES: None. PHYSICAL EXAMINATION: GENERAL: She is confused. VITAL SIGNS: Blood pressure is 86/42, temperature is 38.4. [facility] [address] [place] [address] CONSULTATION Name: ALIREZA CAMARGO Room #: [address] [place] [address] [place] [facility].#: [id number] Admission: 09/29/19 Attend Phys: Omid Tomlinson MD Discharge: Date of : 54 Report #: [id number] HEAD AND NECK: No jugular venous distention. CHEST: No crackles. CARDIOVASCULAR: No rub detected. ABDOMEN: Soft, nontender with no hepatosplenomegaly. LOWER EXTREMITIES: No edema. LABORATORY DATA: Hemoglobin is 8.8. Sodium from yesterday was 128, potassium was 4.6, carbon dioxide was 26, BUN was 51, creatinine was 5.1. IMPRESSION AND PLAN: 1. Acute kidney injury due to hypotension, nonsteroidal anti-inflammatory medications, while taking lisinopril and hydrochlorothiazide. 2. Chronic opioid usage. 3. Hyponatremia. 4. This is yet another episode of acute kidney injury, similar to her previous presentation about a month ago. 5. Discontinue all offending agents. 6. Continue IV fluid. 7. Expect this to completely resolve. 8. Counseling about opioid usage. <ELECTRONICALLY SIGNED> By: Sydnie Tolentino MD 10/02/19 0555 0523 0546 Sydnie Tolentino MD /nt
[2019-10-02 06:00] LABS: CALCIUM 8.5 mg/dL (8.5-10.1); MAGNESIUM 1.5 mg/dL (1.8-2.4); PHOSPHORUS 1.1 mg/dL (2.5-4.9)
[2019-10-02 06:12] LABS: POTASSIUM 2.6 mmol/L (3.5-5.1)
--- NOTE | 2019-10-02 07:52 | EKG ---
[facility] [address] ELECTROCARDIOGRAM REPORT Name: ALIREZA CAMARGO Room #: 450-P ADM IN M.R.#: [id number] Admission: 09/29/19 Attend Phys: Ava Swartz MD Discharge: Date of : 54 Report #: [id number] THIS REPORT FOR: cc: James Franco James A. DO Lundgren, Craig H. MD [facility] ~ THIS REPORT FOR: //name// [facility] ED Test Date: 2019-09-29 Test Time: 17:34:09 Pat Name: ALIREZA CAMARGO Department: Room: 450 Gender: F Rehabilitation Engineer: liz : 1950 Requested By: Patrick Gonzalez Order Number: [id number] MD: Aleks Crockett Measurements Intervals Ferguson Rate: 100 P: 34 RI: 164 QRS: 12 QRSD: 91 T: -2 QT: 348 QTc: 449 Interpretive Statements Sinus tachycardia Nonspecific T wave abnormality Compared to ECG 08/27/2019 13:35:29 Heart rate is increased Electronically Signed On 10-02-2019 7:50:44 CDT by Aleks Crockett [email or web address] <ELECTRONICALLY SIGNED> By: Aleks Crockett MD, [facility] 10/02/19 0750 1734 1734 Aleks Crockett MD, [facility] /EPI
[2019-10-02 08:27] VITALS: BP 143/77
--- NOTE | 2019-10-02 13:28 | NUR ---
PT ADMITTED RELATED TO AMS, [facility], DEHHYDRATION. CM REVIEWED CHART AND SPOKE WITH CARE TEAM. CM ATTEMPTED PC TO PT THIS AM WITH NO RESPONSE. CM CALLED AND SPOKE WITH PT'S SPOUSE FATOU. HE INDICATED THAT HE AND PT RESIDE IN A HOUSE IN [facility]. HE INDICATED THAT HOUE IS HANDICAPPED ACCESSABLE WITH RAMP TO ENTER AND NO STEPS INSIDE. HE INDICATED THAT PT HAD A FWW AND A CANE TO ASSIST WITH MOBILITY. HE INDICATED THAT PT HAD BEEN ON SERVICE WITH [facility] IN THE RECENT PAST BUT THAT THEY MAY HVE STOPPED SEEING PT A WEEK AGO. HE INDICATED THAT HE ANTICAPTED PT RETURNING HOME ONCE MEDICALLY STABLE. PSYCH CONSULTED TO SEE PT. CM TO FOLLOW INDICATED WITH DC PLANNING.
[2019-10-02 15:09] VITALS: BP 150/80
--- NOTE | 2019-10-02 15:59 | NUR ---
Dr. Lara asked me to assess Andreea. Andreea is agreeable to be admitted to [facility]. Dr. Swartz has test pending, until these tests have been completed, the patient will remain on 4W. Andreea rates her depression at 9/10 today. She denies and anxiety, VH, AH SI and HI. Andreea is appropriate for [facility], but needs medical clearence.
--- NOTE | 2019-10-02 16:31 | NUR ---
PT TO DC TO [address] THIS EVENING. PT IS AGREEABLE. CHART COPY ORDERED. REPORT TO BE CALLED TO .
[2019-10-02 17:09] LABS: HEMATOCRIT 24.7 % (37.0-47.0); HEMOGLOBIN 8.2 gm/dL (12.0-15.0)
--- NOTE | 2019-10-02 18:07 | NUR ---
Assumed patient care at 0715. Vital signs stable, LSCTA (diminished), abdomen soft and non-tender, BS x's 4. Patient has several bruises and scratch benitez on her body. She complains of generalized pain, "level ten." She has been given Oxycdone 5/325mg po x's two during this shift with effectiveness. Patient had abnormal lip movements this am, she required re-direction and has been with a sitter all day due to her impulsiveness. Patient denies suicidal and/or homicidal ideation. She does not remember what brought her to the hospital. Patient had a loose BM this am, had a normal BM this afternoon. Normal Sinus Rythym. Patient has rested some throughout the day. Huff Catheter was removed per Dr Swartz's orders. Bladder scanned for pre-void, to scan again after patient has post-void. Patient had Pre-op COVID Test done, results will be done tomorrow in am. Patient is to have an EGD with Dilation on . They will not perform EGD unless she tests negative for COVID. Patient to be Transferred to [address] [place] [address] after she is able to void on her own. Dr Swartz would like a call if patient needs to be straight-cathed. Patient's would like for his to call him at [phone]. informed of patient's expected move to [address] [place] [address]. Patient verbalizes an understanding of this as well. Her behavior has improved throughout the day. She is much more clear with her speech and her understanding. Will report to on-coming nurse.
--- NOTE | 2019-10-03 02:16 | NUR ---
PT CARE ASSUMED WITH PT IN BED AND WATCHING TV WITH SITTER FOR SUICIDAL IDEALATION.PT IS A/O X3.PT HAS BRUISES AND CUTS ON ARMS.PT CARE ASSUMED WITH PT ON TELEMETRY AND LATER TAKEN OFF TELE.PT URINATED X4 AND BLADDER SCANNED PRE AND POST WITH NO RESIDUAL AFTER URINATING.PT WAS COORPERATIVE AND CALM DURING SHIFT.PT POTASSIUM LAB DONE AND WAS 3.1,MEDIA CONSULTANT OUTSIDE SALES EDISON NOTIFIED AND POTASSIUM REPLACED.PT C/O OF PAIN AND PAIN MANAGED WITH OXYCODONE/ACET WITH RELIEF.PT PENDING COVID RESULT.WILL CONTINUE TO MONITOR PER POC
[2019-10-03 09:25] LABS: HEMATOCRIT 25.4 % (37.0-47.0); HEMOGLOBIN 8.5 gm/dL (12.0-15.0)
[2019-10-03 09:30] VITALS: BP 145/80
[2019-10-03 09:45] LABS: CALCIUM 8.8 mg/dL (8.5-10.1); MAGNESIUM 1.6 mg/dL (1.8-2.4); PHOSPHORUS 1.3 mg/dL (2.5-4.9); POTASSIUM 3.5 mmol/L (3.5-5.1)
[2019-10-03] MEDS ORDERED: FLOMAX0.4 MG PO (10:43)
[2019-10-03] MEDS ORDERED: PERCOCET PO (10:47)
--- NOTE | 2019-10-03 11:27 | NUR ---
PT IS AOX3, COOPERATIVE AT THIS TIME. FALL PRECAUTIONS ARE IN PLACE, 1:1 SITTER AT BEDSIDE FOR SAFETY. PT DENIES SI AT THIS TIME. NURSE EDUCATED PT ON MEDICATION AND TRANSFER TO [facility]. PT DENIES PAIN AT THIS TIME. APPETITE IS FAIR, PT HAD BM TODAY. WILL CONTINUE TO MONITOR.
[2019-10-04 11:08] LABS: URINE MAGNESIUM-mg/24hr 153.9 mg/24 hr (12.0-293.0); URINE MAGNESIUM-mg/dl 5.4 mg/dL (Not Estab.)
== END 2019-10-03 13:46 | DRG 917 ==
LOC: ER 17:14 → 4W 19:47 → EROBS 19:47 → 2N 20:25 → 4N 10-01 18:39 → 4W 10-01 18:55
PROVIDERS: Emergency Medicine; Internal Medicine; Nurse Practitioner Family; ADMIT Internal Medicine
DX: T40.602A Poisoning by unspecified narcotics, intentional self-harm, initial encounter (principal); G93.41 Metabolic encephalopathy; E43 Unspecified severe protein-calorie malnutrition; N17.0 Acute kidney failure with tubular necrosis; E87.2 Acidosis; M62.82 Rhabdomyolysis; F11.20 Opioid dependence, uncomplicated; T43.202A Poisoning by unspecified antidepressants, intentional self-harm, initial encounter; I10 Essential (primary) hypertension; E78.5 Hyperlipidemia, unspecified; F32.9 Major depressive disorder, single episode, unspecified; E86.0 Dehydration; K27.9 Peptic ulcer, site unspecified, unspecified as acute or chronic, without hemorrhage or perforation; I95.9 Hypotension, unspecified; G62.9 Polyneuropathy, unspecified; G89.29 Other chronic pain; M25.559 Pain in unspecified hip; K21.9 Gastro-esophageal reflux disease without esophagitis; Z96.641 Presence of right artificial hip joint; Z68.29 Body mass index [BMI] 29.0-29.9, adult; Z79.899 Other long term (current) drug therapy; Z87.891 Personal history of nicotine dependence; Z90.710 Acquired absence of both cervix and uterus; Z90.49 Acquired absence of other specified parts of digestive tract; Y92.89 Other specified places as the place of occurrence of the external cause; Z03.818 Encounter for observation for suspected exposure to other biological agents ruled out
CPT/HCPCS: 10045; 10047; 10081

== ENCOUNTER 2019-10-03 13:59 | Inpatient (IN) | payer OTHER ==
[~2019-10-03] VITALS: Ht 154.9 cm; Wt 65.9 kg
[2019-10-03 13:30] VITALS: BP 146/78
[~2019-10-03 13:59] MED LIST changes: +FLOMAX0.4 MG PO
--- NOTE | 2019-10-03 14:08 | NUR ---
ON-GOING ASSESSMENT: CM REVIEWED CHART AND SPOKE WITH ATTENDING. PT HAS ORDERS TO DISCHARGE TO [facility] TODAY. CM REACHED OUT TO PATIENTS WHO IS AWARE OF HER DISCHARGE TODAY TO [facility]. NO FURTHER NEEDS AT THIS TIME.
--- NOTE | 2019-10-03 16:22 | NUR ---
Admitted from [facility] after overdose of her and her 's medicines d/t extreme pain. Repeatedly states that she did not mean to harm herself but that she was in so much pain she took additional meds. Admits to being hopeless that pain was never going to go away. Hx of similar event in August where she was hospitalized medically and then discharged home. Hx of low back pain. R hip replacement done in 2018, plan to do L hip replacement this fall. Alert and orientated X 4. Denies SI/HI. Breath sounds clear t/o. Reg HR auscultated. Color pale pink with brisk capillary refill and palpable peripheral pulses. Active bowel sounds over soft, round abdomen. Up ambulating in room with regular, steady gait. Scabbed areas to hands and L arm. Mild bruising to bottom of toes/top of feet. States it is from ANAMIKA hose she was wearing at home.
[2019-10-03 19:38] VITALS: BP 153/88
--- NOTE | 2019-10-04 06:06 | NUR ---
10-03-19 CARE TRANSFERED 1914; PT SITTING ON BED AAOX1 CALM, RELAXED. PT REPORT SHE DID NOT MEAN TO OD. PT DENIES SI/SH/HI. PT REPORTS LEFT HIP PAIN AT A 10 DURING MEDICATION ADMIN. PT FURTHER REPORTED SHE SOMETIMES WAITS TO TAKE 3 PILLS AT NIGHT SO SHE CAN GET FULL PAIN RELIEF WITH A GOOD NIGHT SLEEP. OF NOTE, PLEASE REFER TO NURSING INTERVENTIONS FOR MORE INFORMATION. PT LATER REPORTED SHE DOES NOT GET FULL PAIN RELIEF. PT DID HAVE INTERPURTED SLEEP. ZERO ACUTE DISTRESS NOTED THROUGH NURSING ROUNDS.
[2019-10-04 09:39] VITALS: BP 154/82
--- NOTE | 2019-10-04 10:34 | NUR ---
ORDERS RECEIVED FOR EVAL AND TREAT. Pt WAS JUST EVALUATED ON ACUTE AND WAS DISCHARGED FROM P.T. SERVICED DUE TO SAFE WITH MOBILITY. OBSERVED Pt STAND AND AMBULATE SAFELY IN THE DINING ROOM ON [facility]. SPOKE WITH Pt WHO STATES SHE IS ALSO USING A ROLLER WALKER DUE TO LT HIP PAIN BUT HAVING NO DIFFICULTY WITH HER MOBILITY. WILL DEFER ANOTHER FORMAL P.T. EVAL Pt WAS JUST EVALUATED ON ACUTE BUT APPEARS SAFE USING ROLLER WALKER. Pt IN AGREEMENT.
--- NOTE | 2019-10-04 10:51 | NUR ---
CONI was asked by Dr. Carbajal to schedule a family meeting with pt's . CONI contacted Patrick and scheduled the meeting for 12pm. SW team will continue to follow pt during her stay on this unit.
--- NOTE | 2019-10-04 12:41 | NUR ---
CONI and Dr. Carbajal spoke to pt's Patrick and obtained hx. Patrick said he was unaware his was taking his pain meds, but he had been suspecting such. Nevertheless, he is now locking all pain meds into a secured gun safe. Dr. Carbajal recommended he take all guns out of the home and store them elsewhere. Dr. Carbajal okayed pt to discharge on Thursday 10/05 @1300. Dr. Carbajal also recommended therapy. CONI said she will research pt's insurance and provide a listing of therapists for pt and to review; they do not have access to email or internet. SW team will continue to follow pt during her stay on this unit.
[2019-10-04 19:58] VITALS: BP 174/106
--- NOTE | 2019-10-04 22:30 | H ---
[facility] [place] [address] HISTORY AND PHYSICAL Name: ALIREZA CAMARGO Room #: 523B-B ADM IN M.R.#: [id number] Admission: 10/03/19 Attend Phys: Ernesto Carbajal DO Discharge: Date of : 54 Report #: [id number] THIS REPORT FOR: cc: James Franco James A. DO Kerstein, Andrew H. DO ~ CC: Ernesto Franco DATE OF SERVICE: 10/03/2019 INPATIENT PSYCHIATRIC EVALUATION ATTENDING PHYSICIAN: Ernesto Carbajal DO PEOPLE MANAGER: Tracy Sharp MD REASON FOR ADMISSION: Reports the patient taken an overdose of medication. SOURCES OF INFORMATION: Notes from her medical admission downstairs at [facility] as well as psychiatric consultations by Dr. Lara, brief interview with the patient today and nursing notes. HISTORY OF PRESENT ILLNESS: A 69-year-old female, , who presented a few days ago, taken an overdose initially in visit with Dr. Lara on downstairs. The patient denies taking meds intentionally. After further review, she admits to taking medication because "I could not take it anymore". She states she has had more pain and has felt despondent at home, some difficulty with sleeping and eating. She denied active suicidal ideations at time of interview. Interestingly, Dr. Lara had seen her about a month ago for consultation. PAST PSYCHIATRIC HISTORY: She has not had any past mental health professional evaluation besides what Dr. Lara did. Regarding SSRI prescription noted in medical claim history, she had to think for a while and mentioned that her PCP started it because she was thought to have had depressive symptoms. She says "I was just sad because of pain and I only took that pill a few times and then I stopped". She denied history of SI or HI, auditory, visual, or tactile hallucinations. GENERAL MEDICAL HISTORY: Hypertension, colon polyps, and chronic narcotic use. PSYCHIATRIC HISTORY: Depression. PAST SURGICAL HISTORY: She reports she sees Dr. Hassan here at [facility] and she had a right total hip replacement and she is getting a [facility] [address] [place] [address] HISTORY AND PHYSICAL Name: MARY JOKINAA Room #: 523B-B ADM IN M.R.#: [id number] Admission: 10/03/19 Attend Phys: Ernesto Carbajal DO Discharge: Date of : 54 Report #: [id number] left total hip replacement. She rates her current pain that requires narcotics in her left hip. FAMILY HISTORY: Denies family history of colon cancer. SOCIAL HISTORY: Former smoker. Denied alcohol or recreational drug use. REVIEW OF SYSTEMS: In Dr. Lara's evaluation, she denied most review of systems questioned except for bruising on her skin and anxiety about pain. Otherwise, was negative. H and P done by Kaitlin Nova on reported she presented to the Emergency Department via EMS for complaints of slurred speech, generalized weakness, increased weakness and increased confusion over the last 3 days. The spouse reports that the patient has not been herself for the last 3 days. Apparently, she has not only been taking her home oxycodone for chronic pain she is also taking additional doses, which are her 's. Additional medical history includes hypertension, peptic ulcer disease, GERD, neuropathy, chronic opioid use. Interestingly, she was admitted to the hospital for a similar episode 08/27/2019 through 08/31/2019. I believe that was when Dr. Lara saw her for colitis, rhabdomyolysis, drug overdose, and acute kidney injury. During that admission, she had a colonoscopy, which showed colon polyps. Family history otherwise is not obtainable. ALLERGIES: No known allergies. CURRENT MEDICATIONS: In the hospital since she is coming from the medical floor, tamsulosin 0.4 mg I believe that is for her ureters to help urine flow, atorvastatin 20 mg p.o. daily for hyperlipidemia, pantoprazole 40 mg p.o. daily for GERD, magnesium oxide 400 mg p.o. b.i.d. for replacement, supplementation, estradiol 1 mg p.o. at bedtime for menopause, oxycodone 5/325 q. 6 hours p.r.n. p.o. for pain. She has already been advised that will not be prescribed at discharge. LABORATORY DATA: Recent laboratories are as follows: Hematology on 10/03/2019, H and H 8.5 and 25.4, white count 5.7, and platelet count 243. Coagulation from 08/27/2019 was within normal limits. Chemistries done on 10/03/2019, sodium 135, potassium 3.5, chloride 102, bicarbonate 24, anion gap 9, BUN 11, creatinine 1.0, estimated GFR 55, and glucose 99. Lactic acid is 0.9, calcium 8.8, phosphorus 1.3, magnesium 1.6. Iron 91, TIBC 326, percent saturation of iron 28 and unsaturated IBC 235. Ferritin is 66. Total bilirubin is 0.4, direct bilirubin 0.2, AST 58, and ALT 18. Toxicology was positive for opiates. Negative for alcohol. Urinalysis showed 3+ bilirubin, positive Ictotest, 16-25 wbc's, greater than 10 squamous cells, greater than 30 bacteria and see if she [address] [place] [address] HISTORY AND PHYSICAL Name: ALIREZA CAMARGO Room #: 523B-B ADM IN M.R.#: [id number] Admission: 10/03/19 Attend Phys: Ernesto Carbajal, Discharge: Date of : 54 Report #: [id number] had anything culture, looks like it was not sent for urine culture. Serology, she had stool serology on 08/27/2019 through 08/29/2019 admission, which was negative. On 09/20/2019, her hepatitis C screen was less than 0.1. HIV was nonreactive. Imaging done looks like her last head CT was on 09/29/2019, which was read as no acute abnormalities, may take a look at the images here if I have any further opinion. I agree with radiologist nonfocal head CT from mid September. SUBJECTIVE: The patient reports left hip pain of above level 5-degree of pain. She is somewhat fascinated with this author's name. She denies suicidal or homicidal ideations. Discussed with her about taking a few days to improve here, to get more organized, get PT and OT. I did explain to her, she would not be prescribed narcotics at discharge. Regarding her needs otherwise, she did have some abnormal movements or dyskinetic movements of her lips. I think it would be premature to attribute this to any antipsychotics as well need to get a better history. PHYSICAL EXAMINATION: VITAL SIGNS: Today, temperature 36.7, pulse 75, respirations 18, BP 153/88, O2 sat 95%. MUSCULOSKELETAL: Normal gait and station. MENTAL STATUS EXAMINATION: This is a well-developed female appearing stated age, wearing glasses, adequately groomed. Weight is 65.97 kg, BMI 27.5. Attention intact. Concentration is intact. Speech is normal, rhythm, tone. Thought process is linear and goal oriented. Thought content focussed somatically. some psychomotor agitation. No psychomotor retardation. Denied SI or HI. Denied hopelessness, helplessness. Denied auditory, visual, or tactile hallucinations. Memory not formally tested. Insight fair. Judgment fair to limited. Fund of knowledge at least average. FORMULATION: This is a 69-year-old female admitted to Psychiatry due to concern of some overdose as well as ability to care for self. PLAN: admitted to geriatric psychiaty Physical therapy ordered for the patient as well as occupational therapy for ADLs. We will explore her medication regimen a bit on Wednesday as we will have the clinical pharmacist on the floor. ESTIMATED LENGTH OF STAY: 3-5 days. Time spent on interview, review of records, coordination of care is 45-minute range. STRENGTHS: She is insured, has family support. [address] [address] HISTORY AND PHYSICAL Name: ALIREZA CAMARGO Room #: 523B-B ADM IN M.R.#: [id number] Admission: 10/03/19 Attend Phys: Ernesto Carbajal DO Discharge: Date of : 54 Report #: [id number] WEAKNESSES: Recurrent hospitalizations for altered mental status. opioid use disorder <ELECTRONICALLY SIGNED> By: Ernesto Carbajal DO 10/04/19 2230 53 33 Ernesto Carbajal DO /nt
--- NOTE | 2019-10-05 03:20 | NUR ---
ASSUMED CARE ON 10/04/19 @ 1915, IN THE [facility], AMBULATING AD BELKIS. A&O X3-4. CONTINENT OF B&B. DENIES HI, SI WITH A DEFINITIVE NOOO. REPORTS DEPRESSION OF 4/10 AND STATED THAT SHE IS SAD THATA SHE DID WHAT SHE DID TRYING TO KILL SELF. REPORTS ANXIETY LEVEL OF 6/10. HRRR, LUNG SOUNDS CTA, ABD NORMOACTIVE BOWEL SOUNDS, REPORTS X1 MUSHY BM TODAY. SLEEPING AT THIS WRITING, WILL CONTINUE TO MONITOR Q 12 MINUTES FOR PATIENT SAFETY. BED IN LOW POSITION.
[2019-10-05 03:37] VITALS: BP 174/106
[2019-10-05 07:52] VITALS: BP 173/96
[2019-10-05 07:54] VITALS: BP 165/92
[2019-10-05 09:36] VITALS: BP 173/96
--- NOTE | 2019-10-05 11:48 | NUR ---
1130 RESUMMED CARE FROM OVERNIGHT SHIFT THIS AM, PATIENTIN ROOM GETTING READY FOR BREAKFAST. PATIENT THIS AM TALKED ABOUT HER SURGERIES AND HOW SHE MAY NEED PAIN MEDICATION.ITOLD PATIENT SHE HAS TYLENOL FOR NECK PAIN, PATIENT ATE BREAKFAST TOOKMEDICATION WITHOUT INCIDENCE. PATIENTS ABDOMEN SOFT ROUND BOWEL SOUNDS PRESENT. PATIENTS LUNGS WAS CLEAR PATIENT DENIES SI/HI/AH/VH AT PRESENT. SHE STATES IT WAS STUPID WHAT SHE DID TAKING ALL THOSE PILLS. SHE STATED SHE SCARED HER DAUGHTER AND . PATIENTS ABDOMEN SOFT ROUND BOWEL SOUNDS PRESENT LUNGS CLEAR. PATIENTIS PLEASANT COOPERATIVE AND INTERACTS WELL WITH OTHER PATIENTS. WILL CONTINUE TO MONITOR PATIENT FOR BEHAVIORS AND SAFETY.
[2019-10-05 13:40] VITALS: BP 173/96
[2019-10-05 20:04] VITALS: BP 158/83
--- NOTE | 2019-10-06 04:42 | NUR ---
10-05-19 CARE TRANSFERED 1914 OBSERVED PT IN DAY ROOM. 2024 PT AAOX3, CLAM, COOPERATIVE AND PLEASANT. PT DENIES SI/SH/HI. PT MAIN CONCERN IS HAVING THE DOOR OPEN DURING SLEEPING HOURS, SHE REPORTED THE NIGHT BEFORE A MAN CAME INTO THE ROOM. PT WAS REASSURED THAT WE HAVE 12MIN ROUNDS BY STATE GAME WARDEN AND NURSING ROUNDS. PT BUSH WAS WITHIN REACH AND BED PLACED IN LOWEST POSITION, LOCKED AND ALARM PLACED, THAT BETWEEN THE BUSH AND BED ALARM WE WOULD RESPONED QUICKLY. PT THANKED RN. OF NOTE, PLEASE REFER TO NURSING INTERVENTIONS FOR MORE INFORMATION. ZERO ACUTE DISTRESS NOTED THROUGHOUT NURSING ROUNDS.
[2019-10-06 07:15] VITALS: BP 150/90
[2019-10-06] MEDS ORDERED: LISINOPRIL5 MG PO (10:37)
[2019-10-06] MEDS ORDERED: LIDODERM1 EACH TOP (10:37)
[2019-10-06] MEDS ORDERED: FELODIPINE ER10 MG PO (10:37)
[2019-10-06] MEDS ORDERED: COLACE 100 MG100 MG PO (12:22)
[2019-10-06] MEDS ORDERED: ESTRADIOL 1 MG T1 M1 PO (12:22)
[2019-10-06] MEDS ORDERED: LIPITOR 20 MG T20 M1 PO (12:22)
[2019-10-06] MEDS ORDERED: NEURONTIN 300M300 M2 PO (12:22)
[2019-10-06] MEDS ORDERED: FLOMAX0.4 MG PO (12:22)
[2019-10-06] MEDS ORDERED: PANTOPRAZOLE SO40 M1 PO (12:22)
[2019-10-06] MEDS ORDERED: MAGNESIUM400 MG PO (12:22)
[2019-10-06 12:23] VITALS: BP 173/96
--- NOTE | 2019-10-06 16:30 | NUR ---
DISCHARGE INSTRUCTIONS INCLUDING F/U RECCOMENDATIONS MEDICATIONS,RX PROVIDED,DOSAGES AND SCHEDULE REVIEWED. SHE STATES UNDERSTANDING AND DENIES QUESTIONS AND CONCERNS-DOES INDICATE DAUGHTER AND NEICE WHO ARE NURSES WILL BE ASSISTING HER. DENIES SI/SH AT TIME OF DC STATING "I PUT MY THROUGH SO MUCH I WOULD NEVER DO THAT TO HIM AGAIN" REVIEWED WHEN TO SEEK EMERGENCY ASSIST AND SUICIDE PREVENTION INFO AND NUMBER PROVIDED. DISCHARGED WITH PERSONAL BELONGINGS VIA WC AT APPROX 1300 ACCOMPNIED BY STAFF-TO /PRIVATE VEHICLE.
--- NOTE | 2019-10-10 21:11 | D ---
[facility] [place] [address] DISCHARGE SUMMARY Name: ALIREZA CAMARGO Room #: 523B-B [facility] IN M.R.#: [id number] Admission: 10/03/19 Attend Phys: Ernesto Carbajal DO Discharge: 10/06/19 Date of : 54 Report #: [id number] THIS REPORT FOR: cc: James Franco James A. DO Kerstein, Andrew H. DO ~ THIS REPORT FOR: //name// CC: Ernesto Franco DATE OF SERVICE: 10/06/2019 INPATIENT PSYCHIATRIC DISCHARGE SUMMARY ATTENDING PSYCHIATRIST: Ernesto Carbajal DO. ROTARY ADJUSTER AT THE TIME OF DISCHARGE: Tracy Sharp MD DISCHARGE DIAGNOSES: As follows: The patient was originally admitted to medical floor for opiate intoxication, delirium issues such as this. She was referred for Geriatric Psych admission, where she was diagnosed with unspecified psychosis, resolved, as well as opiate use disorder, moderate degree. MEDICAL DIAGNOSES AT THIS ADMISSION: As follows: Hypertension, on lisinopril, Norvasc added; hyperlipidemia; osteoarthritis; moderate protein-calorie malnutrition; anemia of chronic disease; recent renal failure; rhabdomyolysis, resolved; history of peptic ulcer disease, on Protonix. The patient will be discharged to her private home where she lives with her . The patient's aftercare is as follows. List of new therapists was provided for the patient. Officially we will refer her to a [facility] for Psychiatry followup. She will need a walk-in for an intake there as well. DISCHARGE MEDICATIONS: Norvasc 10 mg p.o. daily for hypertension, lisinopril 5 mg p.o. daily for hypertension, lidocaine patch topical daily. ____ Dr. Sharp electronically prescribed tamsulosin 0.4 mg p.o. daily for urinary retention, atorvastatin 20 mg p.o. daily for hyperlipidemia, Neurontin 300 mg p.o. at 0900, 1500, 2100 hours for anxiety, mood stabilization, and chronic pain, docusate 100 mg p.o. b.i.d., hold if diarrhea for bowel motility; pantoprazole 40 mg p.o. daily for GERD; estradiol 1 mg p.o. at bedtime for hormone replacement; magnesium oxide 400 mg p.o. b.i.d. for hormone replacement. The patient is advised not to take any narcotics. During the hospitalization, the patient's physicians were Dr. Mir, Dr. Hassan present on the medical staff. I took therapeutic license to advise them on my concerns regarding her overuse, misuse [address] [place] [address] DISCHARGE SUMMARY Name: ALIREZA CAMARGO Room #: 523B-B DIS IN M.R.#: [id number] Admission: 10/03/19 Attend Phys: Ernesto Carbajal DO Discharge: 10/06/19 Date of : 54 Report #: [id number] of opioids, which landed her to the medical admission. LABORATORY DATA: Laboratories this admission were relatively minimal during the psychiatric stay. H and H 8.5 and 25.4, white count 5.7, and platelet count 243. Chemistries: Sodium 135, potassium 3.5, chloride 102, bicarbonate 24, anion gap 9, BUN 11, creatinine 1.0, estimated GFR 55. She did have hypomagnesemia at 1.6 on 10/03/2019. Toxicology from 09/29/2019 was positive for opiates. PHYSICAL EXAMINATION: VITAL SIGNS: On the day of discharge, temperature 36.8, pulse 75, respirations 16, BP 173/96. MUSCULOSKELETAL: Does have a slow gait, using a walker on the unit, intermittently cane at home. MENTAL STATUS EXAMINATION: This is a well-developed, fairly nourished, well-dressed female appearing stated age. Attention fair. Concentration is fair. Speech is normal, rate, rhythm, tone. Thought process: Linear and goal directed. Thought content focused on discharge. Denied SI or HI. Denied hopelessness or helplessness. Mood and affect congruent, euthymic, broad, happy. Insight fair to limited. Judgment fair. Fund of knowledge average. PROGNOSIS: For this patient is fair, depends on if she engages in better coping skills, avoids dangers of drugs. Her was counseled on the need for firearms to be secured, removed from the residence as well as narcotics. Telephone meeting was had with him during this admission. <ELECTRONICALLY SIGNED> By: Ernesto Carbajal DO 10/10/192110 10 36 Ernesto Carbajal, /nt
== END 2019-10-06 13:00 | disposition home or self-care (01) | DRG 881 ==
LOC: SBH 13:59
PROVIDERS: ADMIT Psychiatry & Neurology Psychiatry
DX: F32.9 Major depressive disorder, single episode, unspecified (principal); T40.2X1A Poisoning by other opioids, accidental (unintentional), initial encounter; F11.921 Opioid use, unspecified with intoxication delirium; G93.41 Metabolic encephalopathy; E44.0 Moderate protein-calorie malnutrition; F41.9 Anxiety disorder, unspecified; I10 Essential (primary) hypertension; Z96.641 Presence of right artificial hip joint; K27.9 Peptic ulcer, site unspecified, unspecified as acute or chronic, without hemorrhage or perforation; K21.9 Gastro-esophageal reflux disease without esophagitis; D63.8 Anemia in other chronic diseases classified elsewhere; G62.9 Polyneuropathy, unspecified; G89.29 Other chronic pain; E78.5 Hyperlipidemia, unspecified; M19.90 Unspecified osteoarthritis, unspecified site; Z86.010 Personal history of colon polyps; Z79.899 Other long term (current) drug therapy; Z68.27 Body mass index [BMI] 27.0-27.9, adult; Y92.89 Other specified places as the place of occurrence of the external cause; Z03.818 Encounter for observation for suspected exposure to other biological agents ruled out
CPT/HCPCS: 10880

== ENCOUNTER → 2019-10-18 | Outpatient (CLI) | payer OTHER ==
[~2019-10-18] VITALS: Ht 154.9 cm; Wt 61.5 kg
[~2019-10-18] MED LIST changes: +AMLODIPINE-BEN1 EAC3 PO; +COLACE 100 MG100 MG PO; +DULCOLAX STOOL100 M1 PO; +DULOXETINE HCL60 MG PO; +FELODIPINE ER10 MG PO; +LIDODERM1 EACH TOP; +ONDANSETRON ODT4 MG PO
[2019-10-18 09:42] VITALS: BP 132/74
--- NOTE | 2019-10-18 09:49 | NUR ---
Pain Clinic Assessment: 1. History of Osteoarthritis: B/L HIPS History of Rheumatoid Arthritis: DENIES 2. Height: 5 ft. 1 in. 154.9 cm. Weight: 135.6 lb. oz. 61.508 kg. Patient's BMI: 25.6 3. Vital Signs: BP: 132/74 Pulse: 98 Resp: 14 Temp: 02 Sat: 100 ECG Mon: 4. Pain Intensity: 9 5. Fall Risk: Dizziness: N Needs help standing or walking: N Fallen in the last 3 months: N Fall risk comments: 6. Patient on Blood Thinner: None 7. History of Hypertension: Y 8. Opioid Therapy greater than 6 weeks: Y Opiate Contract Signed: 11/07/15 9. Risk Assessment Tool Provided: LOW RISK 0 10. Functional Assessment Tool: 11. Recreational Drug Use: Never Drug Type: Tobacco Use: Never Smoker Tobacco Type: Amount or Packs/day: How Many Years: Alcohol Use: No Frequency: Quant:
--- NOTE | 2019-11-01 08:10 | HPC ---
[facility] [place] [address] PAIN MANAGEMENT CONSULTATION Name: ALIREZA CAMARGO Room #: REG CARLOTTA Arteaga.Sánchez.#: [id number] Admission: 10/18/19 Attend Phys: Bernardino Mir MD Discharge: Date of : 54 Report #: [id number] THIS REPORT FOR: cc: James Franco,Bernardino Álvarez MD ~ CC: James Mir DATE OF SERVICE: 10/18/2019 CHIEF COMPLAINT: Low back pain with pain down into the hips. HISTORY: The patient is a 69-year-old female who has been followed in the pain clinic because of chronic pain. She has had pain and discomfort in the lower portion of her back. She returns today indicating that she is having some increased pain and discomfort down in the low back area. She notes that the pain is a 9/10. She has undergone epidural steroid injections in the past and found them beneficial. She has been using opioid medications in the past. At this juncture, the patient is no longer on opioid medications. She complains of pain in the lower portion of her back with pain radiating down into her left buttocks, left lateral thigh with an achy, burning component. ALLERGIES: No known drug allergies. CURRENT MEDICATIONS: Gabapentin 300 mg t.i.d., Lidoderm patches topical q.12 hours, Flomax 0.4 mg, amlodipine/benazepril 5/20, docusate stool softener 100 mg b.i.d., Duloxetine 60 mg, magnesium 400 mg b.i.d., Estrace 1 mg at bedtime, pantoprazole 40 mg, Colace 100 mg, Lipitor 20 mg, Protonix 40 mg. PAIN CLINIC ASSESSMENT AND PQRS: 1. The patient has some osteoarthritic changes in her hips. She has had a hip replacement. Denies treatment for rheumatoid arthritis. 2. Height 5 feet 1 inch, weight 135 pounds, BMI is 25. 3. Vital signs: Blood pressure 132/74, pulse 98, respiratory rate 14, room air saturation 100%. 4. Pain intensity, 01/24. 5. Fall history. The patient has not fallen. 6. Blood thinner. The patient is not on a blood thinning medication. 7. Hypertension. The patient is being treated for hypertension. 8. Opioids. The patient is not on opioids at this juncture. 9. Risk assessment tool, relatively high for opioid use. 10. Functional assessment tool, . 11. Recreational drug use. The patient denies. 12. Tobacco. The patient denies. 13. [place] [address] PAIN MANAGEMENT CONSULTATION Name: ALIREZA CAMARGO Room #: REG CLJose Ramirez#: [id number] Admission: 10/18/19 Attend Phys: Bernardino Mir MD Discharge: Date of : 54 Report #: [id number] PHYSICAL EXAMINATION: GENERAL: The patient is a well-developed, well-nourished, white female. Appears her stated age. She is alert and oriented x 3. Her affect is appropriate. Speech is fluent. HEENT: Normocephalic, atraumatic. Extraocular eye muscles intact. Sclerae nonicteric. Mucous membranes are moist. NECK: Without adenopathy or JVD. HEART: Regular rate. ABDOMEN: Nontender. Bowel sounds present. EXTREMITIES: Upper extremity muscle strength 5/5 for the major muscle groups in the upper extremity. The patient complains of pain and discomfort in the lower portion of her back with pain that is radiating down into her low back in the L4-L5 and sometimes L5-S1 dermatomal distribution. IMPRESSION: 1. Lumbar radiculopathy, L4-L5/L5-S1 dermatomal distribution. 2. History of bilateral hip pain, status post right hip replacement. 3. History of myofascial pain. 4. Low back pain. 5. Chronic pain, with use of opioids in the past. The patient is off opioid medications at this juncture. 6. Depression. 7. Osteoarthritis. RECOMMENDATIONS: We discussed treatment options with the patient. The patient will return to the pain clinic at which time she will consider an epidural steroid injection. Risks and benefits of the procedure were again discussed. The patient has had procedures in the past and is aware of the possible complications. We will petition her insurance carrier. The patient will return at which time we would then consider an epidural injection. We would like to thank you for letting us participate in her care. We hope she continues to improve. <ELECTRONICALLY SIGNED> By: Bernardino Mir MD 11/01/19 0810 [id number] Bernardino Mir MD /QUENTIN
== END ==
LOC: PAIN
PROVIDERS: ATTEND Anesthesiology Pain Medicine
DX: M54.17 Radiculopathy, lumbosacral region (principal); G89.29 Other chronic pain; F11.20 Opioid dependence, uncomplicated; F32.9 Major depressive disorder, single episode, unspecified; M19.90 Unspecified osteoarthritis, unspecified site; Z87.39 Personal history of other diseases of the musculoskeletal system and connective tissue; Z86.69 Personal history of other diseases of the nervous system and sense organs; Z79.899 Other long term (current) drug therapy

== ENCOUNTER → 2019-10-20 | Outpatient (CLI) | payer OTHER | END | disposition home or self-care (01) | LOC: GI 06:58 | DX: K29.50 Unspecified chronic gastritis without bleeding (principal); K31.9 Disease of stomach and duodenum, unspecified; K21.0 Gastro-esophageal reflux disease with esophagitis; K22.2 Esophageal obstruction; K31.89 Other diseases of stomach and duodenum; K44.9 Diaphragmatic hernia without obstruction or gangrene; I10 Essential (primary) hypertension; E78.5 Hyperlipidemia, unspecified; F32.9 Major depressive disorder, single episode, unspecified; Z98.890 Other specified postprocedural states; Z79.899 Other long term (current) drug therapy; Z90.49 Acquired absence of other specified parts of digestive tract; Z90.710 Acquired absence of both cervix and uterus; Z96.641 Presence of right artificial hip joint; Z11.59 Encounter for screening for other viral diseases ==

== ENCOUNTER → 2019-10-25 | Outpatient (CLI) | payer OTHER ==
[~2019-10-25] VITALS: Ht 154.9 cm; Wt 61.2 kg
[2019-10-25 08:03] VITALS: BP 133/80
--- NOTE | 2019-10-25 08:09 | NUR ---
Pain Clinic Assessment: 1. History of Osteoarthritis: B/L HIPS History of Rheumatoid Arthritis: DENIES 2. Height: 5 ft. 1 in. 154.9 cm. Weight: 135.0 lb. oz. 61.236 kg. Patient's BMI: 25.5 3. Vital Signs: BP: 133/80 Pulse: 71 Resp: 14 Temp: 02 Sat: 97 ECG Mon: 4. Pain Intensity: 8 5. Fall Risk: Dizziness: N Needs help standing or walking: N Fallen in the last 3 months: N Fall risk comments: 6. Patient on Blood Thinner: None 7. History of Hypertension: Y 8. Opioid Therapy greater than 6 weeks: Y Opiate Contract Signed: 11/07/15 9. Risk Assessment Tool Provided: LOW RISK 0 10. Functional Assessment Tool: 11. Recreational Drug Use: Unknown Drug Type: Tobacco Use: Never Smoker Tobacco Type: Amount or Packs/day: How Many Years: Alcohol Use: No Frequency: Quant:
--- NOTE | 2019-11-07 15:16 | HPC ---
[facility] [place] [address] PAIN MANAGEMENT CONSULTATION Name: ALIREZA CAMARGO Room #: REG CARLOTTA Javon.#: [id number] Admission: 10/25/19 Attend Phys: Brenardino Mir MD Discharge: Date of : 54 Report #: [id number] THIS REPORT FOR: cc: James Franco,Bernardino Álvarez MD ~ CC: James Mir DATE OF SERVICE: 10/25/2019 CHIEF COMPLAINT: Pain in the mid back, low back, and shoulder area. HISTORY: The patient is a 69-year-old female who has been followed in the pain clinic because of low back pain. She has pain and discomfort, which radiates down the lower portion of her back and into her posterior leg with numbness and tingling. She has returned today for an epidural steroid injection. These in the past have been helpful. She rates her pain as an 8/10. Has pain in the low back area with pain radiating down into both legs, bilateral buttocks areas as well as she has some left lateral hip pain. She complains of a burning nature of the pain. Notes that the pain is exacerbated when she is walking, bending and with activities of daily living. It improves with medications as well as with lying down. ALLERGIES: No known drug allergies. CURRENT MEDICATIONS: Gabapentin 300 mg t.i.d., Lidoderm patches topical q.12 hours p.r.n., Flomax 0.4 mg, amlodipine/benazepril 5/20, docusate 100 mg b.i.d., Duloxetine 60 mg, magnesium 400 mg b.i.d., Estrace 1 mg at bedtime, pantoprazole 40 mg, Lipitor 20 mg, and Protonix 40 mg. PAIN CLINIC ASSESSMENT AND PQRS: 1. The patient has some osteoarthritic changes in her hips. She has had a hip replacement. Denies treatment for rheumatoid arthritis. 2. Height 5 feet 1 inch, weight 130 pounds, BMI 25. 3. Vital Signs: Blood pressure 133/80, pulse 71, respiratory rate 18, room air saturation is 97%. 4. Pain intensity 12/24. 5. Fall risk. The patient has not fallen in the last 3 months. 6. Blood thinner. The patient is not on a blood thinning medication. 7. Hypertension. The patient is being treated for hypertension. 8. Opioids greater than 6 weeks. 9. Risk assessment tool, low for opioid use. 10. Functional assessment tool . 11. Recreational drug use. The patient denies. 12. Tobacco: [place] [address] PAIN MANAGEMENT CONSULTATION Name: ALIREZA CAMARGO Room #: REG CARLOTTA Ramirez#: [id number] Admission: 10/25/19 Attend Phys: Bernardino Mir MD Discharge: Date of : 54 Report #: [id number] 13. Alcohol. The patient denies use of alcoholic beverages. PHYSICAL EXAMINATION: GENERAL: The patient is a well-healed well-nourished white female. Appears her stated age. She is alert and oriented x 3. Her affect is appropriate. Speech is fluent. HEENT: Normocephalic, atraumatic. Extraocular eye muscles intact. Sclerae nonicteric. Mucous membranes are moist. The patient is wearing a mask. NECK: Without adenopathy or JVD. HEART: Regular rate. ABDOMEN: Nontender. Bowel sounds present. EXTREMITIES: Upper extremity muscle strength judged to be 5/5 for the major muscle groups in the upper extremity. The patient has pain and discomfort in lower portion of her back with pain that is radiating down into the L5-S1 dermatomal distribution involving both left and right leg in the L5-S1 distribution today. IMPRESSION: 1. Lumbar radiculopathy with L5-S1 dermatomal distribution. 2. History of bilateral hip pain, status post right hip replacement. 3. History of myofascial pain. 4. Low back pain. 5. Chronic pain. The patient has been treated in the past with opioids and no longer is on opioid medications secondary to difficulty managing their use. 6. Osteoarthritis. RECOMMENDATIONS: We discussed treatment options with the patient. Risks and benefits of an epidural steroid injection were again discussed. The patient has had epidural steroid injections in the past. She is aware of the possible complication of the medications are decreased immunity because of use of steroids. The patient is aware that Covid-19 is problematic. She is staying at home. She would like to proceed with an injection. PROCEDURE NOTE: She was taken to the procedure area. She was then assisted in getting on the examination table. Her back was sterilely prepped with a Betadine solution. A 0.25% bupivacaine was infiltrated at the L5-S1 area. A 17-gauge Tuohy with loss of resistance technique was used to gain access to the epidural space. There was no CSF, heme, or paresthesia. Total of 80 mg Depo-Medrol, 40 mg triamcinolone and 2 mL of 0.25% bupivacaine was injected. The patient underwent 10 seconds fluoroscopy time. Her pain was 0 at the time of discharge. She will follow up in the future as needed. [address] [address] PAIN MANAGEMENT CONSULTATION Name: ALIREZA CAMARGO Room #: REG [facility].#: [id number] Admission: 10/25/19 Attend Phys: Bernardino Mri MD Discharge: Date of : 54 Report #: [id number] We would like to thank you for letting us participate in her care. We hope she continues to improve. <ELECTRONICALLY SIGNED> By: Bernardino Mir MD 11/07/19 1516 [id number] Bernardino Mir MD /nt
== END | disposition home or self-care (01) ==
LOC: PAIN 06:41
PROVIDERS: ATTEND Anesthesiology Pain Medicine
DX: M54.16 Radiculopathy, lumbar region (principal); G89.29 Other chronic pain; M16.11 Unilateral primary osteoarthritis, right hip; F32.9 Major depressive disorder, single episode, unspecified; F41.9 Anxiety disorder, unspecified; F11.20 Opioid dependence, uncomplicated; Z98.890 Other specified postprocedural states; Z79.899 Other long term (current) drug therapy

== ENCOUNTER → 2020-01-05 | Outpatient (CLI) | payer OTHER ==
[~2020-01-05] VITALS: Ht 154.9 cm; Wt 64.4 kg
[2020-01-05 10:17] VITALS: BP 126/81
--- NOTE | 2020-01-05 10:18 | NUR ---
Pain Clinic Assessment: 1. History of Osteoarthritis: B/L HIPS History of Rheumatoid Arthritis: DENIES 2. Height: 5 ft. 1 in. 154.9 cm. Weight: 142.0 lb. oz. 64.411 kg. Patient's BMI: 26.8 3. Vital Signs: BP: 126/81 Pulse: 92 Resp: 16 Temp: 02 Sat: 97 ECG Mon: 4. Pain Intensity: 9 5. Fall Risk: Dizziness: N Needs help standing or walking: N Fallen in the last 3 months: N Fall risk comments: 6. Patient on Blood Thinner: None 7. History of Hypertension: Y 8. Opioid Therapy greater than 6 weeks: Y Opiate Contract Signed: 11/07/15 9. Risk Assessment Tool Provided: LOW RISK 0 10. Functional Assessment Tool: 11. Recreational Drug Use: Never Drug Type: Tobacco Use: Never Smoker Tobacco Type: Amount or Packs/day: How Many Years: Alcohol Use: No Frequency: Quant:
--- NOTE | 2020-01-10 08:22 | HPC ---
[facility] [place] [address] [address] PAIN MANAGEMENT CONSULTATION Name: ALIREZA CAMARGO Room #: REG CARLOTTA ArteagaSuzanneSánchezSuzanne#: [id number] Admission: 01/05/20 Attend Phys: Bernardino Mir MD Discharge: Date of : 54 Report #: [id number] THIS REPORT FOR: cc: James Franco,Bernardino Álvarez MD ~ CC: James Mir DATE OF SERVICE: 01/05/2020 CHIEF COMPLAINT: "Here for an epidural injection. Have pain down in my back, was really help with the last injection." HISTORY: The patient is a 69-year-old female who has been followed in the pain clinic because of back problems. She had a hip replacement. She has noted some improvement in that area. She still has some reduced range of motion. Overall, she feels that surgery has been beneficial. She has noticed a recurrence of pain in the low back area with pain that radiates down the posterior portion of her right leg. She has undergone epidural steroid injections in the past for this. She has noticed improvement after this procedure. She has returned today with the hopes of undergoing another epidural injection. She is walking using her cane. She has been walking for a few blocks in her neighborhood. She feels that she is better now that she is not on the opioid medications. Overall, her relationship with her and her outlook on life have improved. ALLERGIES: No known drug allergies. CURRENT MEDICATIONS: Gabapentin 300 mg t.i.d., Lidoderm patches topical q.12 hours p.r.n., Flomax 0.4 mg, amlodipine/benazepril 5 mg/20 mg, docusate 100 mg b.i.d., Duloxetine 60 mg, magnesium 400 mg b.i.d., Estrace 1 mg at bedtime, pantoprazole 40 mg, Lipitor 20 mg, and Protonix 40 mg. PAIN CLINIC ASSESSMENT AND PQRS: 1. The patient has some osteoarthritic changes in her hip. She has had a right hip replacement. Denies rheumatoid arthritis, has some pain and discomfort in the left hip. 2. Height 5 feet 1 inch, weight 142 pounds, BMI is 26.8. 3. Vital Signs: Blood pressure 126/81, pulse 92, respiratory rate 16, room air saturation 97%. 4. Pain intensity, 9/10. 5. Fall history. The patient has not fallen in the last 3 months. 6. Blood thinner. The patient is not on a blood thinning medication. 7. Hypertension. The patient is being treated for hypertension. 8. Opioids greater than 6 weeks. The patient is not on an opioid regimen. 9. Risk assessment tool, moderate [place] [address] PAIN MANAGEMENT CONSULTATION Name: ALIREZA CAMARGO Room #: REG [facility].#: [id number] Admission: 01/05/20 Attend Phys: Bernardino Mir MD Discharge: Date of : 54 Report #: [id number] 10. Functional assessment tool, . 11. Recreational drug use. The patient denies. 12. Tobacco. The patient has never smoked. 13. Alcohol. The patient denies frequent use of alcoholic beverages. PHYSICAL EXAMINATION: GENERAL: The patient is a well-developed, well-nourished, white female. Appears her stated age. She is alert and oriented x 3. Her affect is appropriate. Speech is fluent. HEENT: Normocephalic, atraumatic. Extraocular eye muscles intact. Sclerae nonicteric. Mucous membranes are moist. The patient is wearing glasses. She has a mask on. NECK: Without adenopathy or JVD. HEART: Regular rate. LUNGS: Clear. ABDOMEN: Nontender. Bowel sounds present. MUSCULOSKELETAL: The patient has some pain and discomfort in the left and right paraspinous area at L5-S1. The patient is experiencing pain that is radiating down the posterior portion of her right leg in the L5-S1 area. Also, has some discomfort on the right side. IMPRESSION: 1. Lumbar radiculopathy with L5-S1 dermatomal distribution, more problematic than right today, but left is affected. 2. History of bilateral hip pain, status post right hip replacement. 3. History of myofascial pain. 4. Low back pain. 5. Chronic pain. The patient has been treated in the past with opioids and is no longer on opioid medications secondary to difficulty with managing their use. 6. Osteoarthritis. RECOMMENDATIONS: We discussed treatment options with the patient. Risks and benefits of an epidural steroid injection were discussed. Possible complications of the procedure, which could include but are not limited to infection, worsening of pain, no improvement in pain, nerve damage, bleeding, spinal headache were discussed and the patient elects to proceed. The patient is aware that COVID-19 is problematic. Should she become infected, she may have a more difficult journey with the virus secondary to decrease in her immune response. She elects to proceed. PROCEDURE NOTE: The patient was taken to the procedure area. She was then assisted in getting on the examination table. Her back was sterilely prepped with a Betadine solution at the L5-S1 area. A 0.25% bupivacaine was infiltrated at the L5-S1 area with a 25-gauge needle to anesthetize it. A 17-gauge Tuohy with loss of resistance technique was used to gain access to the epidural space. There was no CSF, heme or paresthesia. Total of 80 mg Depo-Medrol, 40 mg [facility] [address] [place] [address] PAIN MANAGEMENT CONSULTATION Name: TRAV CAMARGOLMA Room #: REG [facility]#: [id number] Admission: 01/05/20 Attend Phys: Bernardino Mir MD Discharge: Date of : 54 Report #: [id number] triamcinolone and 2 mL of 0.25% bupivacaine was injected. The patient tolerated the procedure well. There were no complications. A total of 11 seconds fluoroscopy time was used. The patient will follow up as needed. We would like to thank you for letting us participate in her care. We hope she continues to improve. <ELECTRONICALLY SIGNED> By: Bernardino Mir MD 01/10/20 0822 [id number] [id number] Bernardino Mir MD /[facility]
== END | disposition home or self-care (01) ==
LOC: PAIN 06:51
PROVIDERS: ATTEND Anesthesiology Pain Medicine
DX: M54.16 Radiculopathy, lumbar region (principal); G89.29 Other chronic pain; I10 Essential (primary) hypertension; M19.90 Unspecified osteoarthritis, unspecified site; F11.20 Opioid dependence, uncomplicated; F32.9 Major depressive disorder, single episode, unspecified; Z98.890 Other specified postprocedural states; Z79.899 Other long term (current) drug therapy; Z96.641 Presence of right artificial hip joint

== ENCOUNTER → 2020-02-05 | Outpatient (CLI) | payer OTHER | LOC: LAB 10:34 | PROVIDERS: ATTEND Specialist | DX: Z01.812 Encounter for preprocedural laboratory examination (principal); Z20.828 Contact with and (suspected) exposure to other viral communicable diseases ==

== ENCOUNTER → 2020-02-08 | Outpatient (CLI) | payer OTHER ==
[~2020-02-08] VITALS: Ht 154.9 cm; Wt 65.8 kg
--- NOTE | ~2020-02-08 | P ---
[facility] [place] [address] PROCEDURE REPORT Name: ALIREZA CAMARGO Room #: REG CARLOTTA Yoli#: [id number] Admission: 02/08/20 Attend Phys: Masoud Hawthorne MD Discharge: Date of : 54 Report #: [id number] THIS REPORT FOR: cc: James Franco James A. DO Thesing, John A. MD ~ CC: James Yañez OUTPATIENT UPPER ENDOSCOPY BRIEF HISTORY: The patient is a 69-year-old woman, known to me, who has had previous endoscopy and dilation in, I believe, October of this year. She had been on PPI and she had stopped that. Recently, she had a food bolus obstruction in the esophagus while eating at a steakhouse. She presents for repeat evaluation and dilation. PREOPERATIVE DIAGNOSIS: Recurrent dysphagia. POSTOPERATIVE DIAGNOSES: 1. Mild Schatzki ring, gastroesophageal junction. 2. A 2-3 cm sliding type hiatus hernia. 3. Mild erythematous gastritis. MEDICATIONS: Deep sedation with propofol per anesthesia. SPECIMEN: None. ESTIMATED BLOOD LOSS: None. PROCEDURE: EGD and Dunne dilation. FINDINGS: Prior to propofol sedation, the procedure of upper endoscopy and dilation was discussed with the patient as well as potential risks and its complications. She indicates she understands and desires to proceed. DESCRIPTION OF PROCEDURE: With the patient in left lateral decubitus position, the Olympus video endoscope was inserted in the cervical esophagus under direct vision without difficulty. Examination of this organ through its entire length revealed normal esophageal mucosa down in the distal esophagus. The squamocolumnar junction was inspected and noted to be unremarkable. Intermittently, a mild Schatzki ring was seen right at the squamocolumnar junction. No strictures or masses were seen. She has resumed her PPI and no erosive changes were seen in the esophagus, which had been noted in the past. The scope was advanced into the stomach, was examined on end view as well as retroflexed views. There was a pattern of a diffuse erythematous gastritis. No [facility] [address] [place] [address] PROCEDURE REPORT Name: ALIREZA CAMARGO Room #: REG [facility].#: [id number] Admission: 02/08/20 Attend Phys: Masoud Hawthorne MD Discharge: Date of : 54 Report #: [id number] ulcers or erosions were seen. No retained solids were seen within the stomach. Upon retroflexion, hiatus hernia was seen, but no other abnormalities were identified. The pylorus was unremarkable. The duodenal bulb was unremarkable as well. Postbulbar duodenal sweep was unremarkable. At that point, the scope was slowly withdrawn under careful circumferential views, confirmed the above findings. The patient tolerated the procedure well. CONDITION OF THE PATIENT UPON DISCHARGE: Following procedure, the patient was drowsy, arousable, and conversant and will be discharged home when fully ambulatory. Following procedure, she was dilated with passage of 52-Nigerien Dunne dilator. There was no resistance. INSTRUCTIONS TO THE PATIENT AND FAMILY AT THE TIME OF DISCHARGE: Endoscopic findings as noted. She does have a ring. She was dilated slightly higher today than previously at 52-N[place]ien. She had stopped her PPI, which may be a factor. At this point in time, we will have her continue PPI on a regular basis. She should return for followup in the office in 1 year or sooner if needed. She is to return for dilation on as needed basis. If she continues to have problems with dysphagia in spite of adequate dilation, esophageal manometry may be a consideration in the future. By: [id number] [id number] Masoud Hawthorne MD /jennifer
== END | disposition home or self-care (01) ==
LOC: GI
PROVIDERS: ATTEND Specialist
DX: R13.10 Dysphagia, unspecified (principal); K22.2 Esophageal obstruction; K44.9 Diaphragmatic hernia without obstruction or gangrene; K29.70 Gastritis, unspecified, without bleeding; I10 Essential (primary) hypertension; E78.5 Hyperlipidemia, unspecified; K21.9 Gastro-esophageal reflux disease without esophagitis; F32.9 Major depressive disorder, single episode, unspecified; F11.10 Opioid abuse, uncomplicated; Z98.890 Other specified postprocedural states; Z79.899 Other long term (current) drug therapy; Z90.49 Acquired absence of other specified parts of digestive tract; Z90.710 Acquired absence of both cervix and uterus; Z96.641 Presence of right artificial hip joint
CPT/HCPCS: 62110; 62900

== ENCOUNTER → 2020-04-26 | Outpatient (CLI) | payer OTHER ==
[~2020-04-26] VITALS: Ht 154.9 cm; Wt 67.8 kg
[2020-04-26 11:09] VITALS: BP 135/88
--- NOTE | 2020-04-26 11:30 | NUR ---
Pain Clinic Assessment: 1. History of Osteoarthritis: B/L HIPS History of Rheumatoid Arthritis: DENIES 2. Height: 5 ft. 1 in. 154.9 cm. Weight: 149.4 lb. oz. 67.767 kg. Patient's BMI: 28.2 3. Vital Signs: BP: 135/88 Pulse: 84 Resp: 16 Temp: 02 Sat: 97 ECG Mon: 4. Pain Intensity: 9 5. Fall Risk: Dizziness: N Needs help standing or walking: N Fallen in the last 3 months: N Fall risk comments: 6. Patient on Blood Thinner: None 7. History of Hypertension: Y 8. Opioid Therapy greater than 6 weeks: N Opiate Contract Signed: 11/07/15 9. Risk Assessment Tool Provided: LOW RISK 0 10. Functional Assessment Tool: 11. Recreational Drug Use: Never Drug Type: Tobacco Use: Never Smoker Tobacco Type: Amount or Packs/day: How Many Years: Alcohol Use: No Frequency: Quant:
== END | disposition home or self-care (01) ==
LOC: PAIN 06:51
PROVIDERS: ATTEND Anesthesiology Pain Medicine
DX: M54.12 Radiculopathy, cervical region (principal); M54.16 Radiculopathy, lumbar region; G89.29 Other chronic pain; I10 Essential (primary) hypertension; E78.5 Hyperlipidemia, unspecified; M19.90 Unspecified osteoarthritis, unspecified site; F32.9 Major depressive disorder, single episode, unspecified; K21.9 Gastro-esophageal reflux disease without esophagitis; Z96.641 Presence of right artificial hip joint; Z98.890 Other specified postprocedural states; Z79.899 Other long term (current) drug therapy; Z90.710 Acquired absence of both cervix and uterus; Z90.49 Acquired absence of other specified parts of digestive tract

== ENCOUNTER → 2020-07-12 | Outpatient (CLI) | payer OTHER ==
[~2020-07-12] MED LIST changes: +COLLAGEN PLUS1 EACH PO; +HAIR, SKIN AND1 EACH PO; +LIPITOR40 MG PO; +TRAMADOL 50 MG50 MG PO; +TYLENOL EXTRA500 MG PO
== END ==
LOC: LAB 09:00
PROVIDERS: ATTEND Family Medicine
DX: Z01.812 Encounter for preprocedural laboratory examination (principal); Z20.822 Contact with and (suspected) exposure to COVID-19

== ENCOUNTER 2020-07-17 12:26 | Observation (INO) | payer OTHER ==
[~2020-07-17] VITALS: Ht 154.9 cm; Wt 68.5 kg
--- NOTE | ~2020-07-17 | O ---
[facility] [place] [address] OPERATIVE REPORT Name: ALIREZA CAMARGO Room #: 150-6 [facility] M.R.#: [id number] Admission: 07/17/20 Attend Phys: Vinicius Hassan MD Discharge: Date of : 54 Report #: [id number] THIS REPORT FOR: cc: James Franco James A. DO Abraham, Scott M. MD ~ DATE OF SERVICE: 07/17/2020 PREOPERATIVE DIAGNOSIS: Left hip osteoarthritis. POSTOPERATIVE DIAGNOSIS: Left hip osteoarthritis. PROCEDURE: Left total hip arthroplasty. SURGEON: Vinicius Hassan MD. COMPLIANCE AUDITOR: Silvia Varma PA-C. INDICATIONS FOR COMPLIANCE AUDITOR: Throughout the case, extensive retraction and manipulation of the hip including dislocation and reduction was required. This was afforded to me by my desk assistant. ANESTHESIA: LMA. IMPLANTS: __ 50, R3 acetabular cup with 1 acetabular __ 32+0 cobalt chrome head. ESTIMATED BLOOD LOSS: 50 mL. COMPLICATIONS: None. SPECIMENS: None. CONDITION UPON LEAVING THE OPERATING ROOM: Stable. INDICATIONS FOR PROCEDURE: The patient is a 69-year-old female with left hip osteoarthritis. She had failed conservative measures for this and after discussion with her, she elected for left total hip arthroplasty. DESCRIPTION OF PROCEDURE: Risks, benefits, alternatives, complications were discussed in detail with the patient including but not limited to risk of anesthesia, risk of damage to nerves, arteries, blood vessels, risk for infection, bleeding, risk for leg length discrepancy, instability and need for reoperation. Informed consent was obtained from the patient. Left hip was appropriately marked in the preoperative holding area. IV Ancef was given for preoperative antibiotics. She was brought to the operating room and placed in [address] [address] OPERATIVE REPORT Name: TRAV CAMARGOLMA Room #: 150-6 [facility] M.Sánchez.#: [id number] Admission: 07/17/20 Attend Phys: Vinicius Hassan MD Discharge: Date of : 54 Report #: [id number] the supine position on the operating room table. LMA anesthesia was induced without complications. She was then placed in the right lateral decubitus position, left hip uppermost. Left hip and lower extremity were then prepped and draped in normal sterile fashion. Timeout was performed properly identifying the patient and procedure as well as the instrumentation and implants. All in the operating room were in agreement. Standard posterior approach to the hip was made with 10 blade through the skin. Dissection taken down to the fascia was cleaned off with a Calderon elevator. Fresh 10 blade was used to make a fascial incision. This was taken proximally and distally with curved Carl scissor. Charnley retractor was placed. Trochanteric bursa was taken down with Bovie cautery. Piriformis tendon was identified, tagged and taken down with Bovie. Short external rotators were also taken down with Bovie cautery. Capsulotomy was made and capsule ends were tagged for later repair. The hip was dislocated. There was extensive osteoarthritic change of the femoral head. Femoral neck cut was made 1 cm proximal to lesser trochanter based on preoperative templating and femoral head was removed. Deep acetabular retractors were placed. Labrum was removed sharply. Pulvinar was removed with Bovie cautery. Acetabulum was then sequentially reamed up to a size 50, at which point, there was excellent bleeding cancellous bone a size 49 trial cup was placed, found to have a good fit. A final size 50 R3 acetabular cup was placed and seated. One acetabular screw was placed for backup fixation. Polyethylene liner for a 32 head was placed. Attention was turned to the femur. This was reamed and broached up to a size 9, at which point the 9 broach was stable, was trialed with a high offset neck and a 32+0 head. Hip was reduced, taken through range of motion, found to be stable, found to be fairly tight anteriorly in external rotation. This was switched for a standard offset head and hip was reduced, taken through range of motion, found to be stable, found to have equal leg lengths. Hip was dislocated and broach was removed. Final size 9 Synergy standard offset stem was cemented in place using standard cementation techniques. After the cement cured, this was trialed with a 32+0 head. Hip was reduced, taken through range of motion, found to be stable, found to have equal leg lengths. Hip was dislocated one last time and a final size 32+0 cobalt chrome head was placed. Hip was reduced, taken through range of motion, found to be stable, found to have equal leg lengths. The hip was thoroughly irrigated in normal saline. Periarticular injection consisting of morphine, ropivacaine, epinephrine and Toradol was placed around the hip joint capsule. A gram of vancomycin was placed deep in the joint. The capsule and piriformis were repaired with 0 FiberWire. Fascia was closed with 0 Vicryl, skin was closed with 2-0 Vicryl, 3-0 Monocryl. Dermabond and a JAELYN dressing was applied. The patient tolerated this procedure well and went to recovery room under care of anesthesia postoperatively. By: 1707 [id number] Vinicius Hassan MD /nt
[2020-07-17 13:05] VITALS: BP 123/74
[2020-07-17 18:00] VITALS: BP 114/73
[2020-07-17 18:15] VITALS: BP 112/63
--- NOTE | 2020-07-17 18:55 | NUR ---
Pt transferred from PACU approx 1800. A&Ox4. Dressing c/d/i. IVF infusing. Pt able to tolerate diet. Will give report to mary RODAS.
[2020-07-17 19:09] VITALS: BP 111/63
[2020-07-17 21:40] VITALS: BP 112/70
--- NOTE | 2020-07-18 00:55 | NUR ---
ASSESSED AT START OF SHIFT. PT A&OX4. C/O PAIN. PO MEDICATION GIVEN. IV INTACT AND FLUIDS INFUSING. SCD'S, TEDHOSE, AND ICE BAG IN PLACE. PT REPOSITIONED FOR COMFORT. ON RA. FALL PREC IN PLACE AND CALL LIGHT AT REACH WILL CONT TO MONITOR.
[2020-07-18 03:43] VITALS: BP 142/92
[2020-07-18 05:42] LABS: HEMATOCRIT 28.7 % (37.0-47.0); HEMOGLOBIN 9.4 gm/dL (12.0-15.0); MCH 32.5 pg (26.0-34.0); MCHC 32.6 g/dL (28.0-37.0); MCV 99.6 fL (80.0-100.0); RBC 2.88 mil/uL (4.20-5.00); RDW 14.8 % (10.5-14.5); WBC 7.5 thou/uL (4.0-11.0)
[2020-07-18 09:16] VITALS: BP 111/65
--- NOTE | 2020-07-18 11:32 | NUR ---
ASSUMED PT CARE THIS AM. PT VSS, A&OX4. BLOOD PRESSURE MEDS HELD THIS AM DUE TO CURRENT PRESSURE. LEFT HIP DRESSING C/D/I. USING A BEDPAN WHEN NEEDED. ON ROOM AIR. TOOK MEDS WHOLE WITHOUT COMPLAINT. IV PATENT, FLUIDS INFUSING WELL. FALL PRECAUTIONS IN [place], MAKES NEEDS KNOWN.
[2020-07-18 14:04] VITALS: BP 111/65
--- NOTE | 2020-07-18 14:18 | NUR ---
ASSESSMENT: CM REVIEWED CHART AND MET WITH PATIENT. PT IS ALERT AND ORIENTED X4. PT IS S/P L FLOWER. PT REPORTS THAT SHE LIVES IN A HANDICAP ACCESSIBLE HOME. PT REPORTS NO STEPS SHE HAS TO USE INSIDE. PT REPORTS SHE HAS A CANE AND WALKER AT HOME TO ASSIST WITH AMBULATION IF NEEDED. PT REPORTS THAT SHE HAS OUTPATIENT THERAPY ARRANGED AT [facility] TO BEGIN ON WEDNESDAY. PT REPORTS THAT SHE DOES NOT ANTICIPATE HAVING ANY NEEDS FROM CM AT DISCHARGE. PT HAS BEEN CLEARED BY PHYSICAL THERAPY TO DISCHARGE HOME TODAY.
== END 2020-07-18 15:21 | disposition home or self-care (01) ==
LOC: OR → TBA 12:26 → OR 12:26 → 4S 18:08 → OR 18:09 → 4S 18:09
PROVIDERS: ADMIT Orthopaedic Surgery; ATTEND Orthopaedic Surgery
DX: M16.12 Unilateral primary osteoarthritis, left hip (principal); F32.9 Major depressive disorder, single episode, unspecified; E87.2 Acidosis; M16.11 Unilateral primary osteoarthritis, right hip; Z79.899 Other long term (current) drug therapy
CPT/HCPCS: 50010; 50101; 50382; 50414; 51057; 51130; 51225; 53000; 53078; 53367; 54118; 56460; 56524; 56527; 56528; 56530; 57095; 57103; 62110; 62900; 70005

== ENCOUNTER → 2020-08-30 | Outpatient (CLI) | payer OTHER ==
[~2020-08-30] VITALS: Ht 154.9 cm; Wt 67.6 kg
[2020-08-30 09:53] VITALS: BP 134/71
--- NOTE | 2020-08-30 10:03 | NUR ---
Pain Clinic Assessment: 1. History of Osteoarthritis: B/L HIPS History of Rheumatoid Arthritis: DENIES 2. Height: 5 ft. 1 in. 154.9 cm. Weight: 149.0 lb. oz. 67.586 kg. Patient's BMI: 28.2 3. Vital Signs: BP: 134/71 Pulse: 85 Resp: 20 Temp: 02 Sat: 99 ECG Mon: 4. Pain Intensity: 9 5. Fall Risk: Dizziness: N Needs help standing or walking: Y Fallen in the last 3 months: N Fall risk comments: 6. Patient on Blood Thinner: None 7. History of Hypertension: Y 8. Opioid Therapy greater than 6 weeks: N Opiate Contract Signed: 11/07/15 9. Risk Assessment Tool Provided: 6- MOD RISK 10. Functional Assessment Tool: 11. Recreational Drug Use: Current within past 3 mos Drug Type: GUMMIES Tobacco Use: Never Smoker Tobacco Type: Amount or Packs/day: How Many Years: Alcohol Use: No Frequency: Quant:
== END | disposition home or self-care (01) ==
LOC: PAIN 07-12 10:51
PROVIDERS: ATTEND Anesthesiology Pain Medicine
DX: M54.16 Radiculopathy, lumbar region (principal); G89.29 Other chronic pain; M54.12 Radiculopathy, cervical region; M19.90 Unspecified osteoarthritis, unspecified site; I10 Essential (primary) hypertension; E78.5 Hyperlipidemia, unspecified; F32.9 Major depressive disorder, single episode, unspecified; K21.9 Gastro-esophageal reflux disease without esophagitis; Z98.890 Other specified postprocedural states; Z79.899 Other long term (current) drug therapy; Z96.641 Presence of right artificial hip joint; Z90.49 Acquired absence of other specified parts of digestive tract; Z90.710 Acquired absence of both cervix and uterus; Z85.828 Personal history of other malignant neoplasm of skin

== ENCOUNTER → 2020-10-21 | Outpatient (CLI) | payer OTHER | LOC: CAT 15:36 | PROVIDERS: ATTEND Internal Medicine Cardiovascular Disease | DX: Z13.6 Encounter for screening for cardiovascular disorders (principal); I25.10 Atherosclerotic heart disease of native coronary artery without angina pectoris ==

== ENCOUNTER → 2020-11-06 | Outpatient (CLI) | payer OTHER | LOC: SJCVC 10:23 | PROVIDERS: ATTEND Internal Medicine Cardiovascular Disease | DX: R93.1 Abnormal findings on diagnostic imaging of heart and coronary circulation (principal); E78.00 Pure hypercholesterolemia, unspecified; I10 Essential (primary) hypertension; R09.89 Other specified symptoms and signs involving the circulatory and respiratory systems; R06.02 Shortness of breath; E78.5 Hyperlipidemia, unspecified; K21.9 Gastro-esophageal reflux disease without esophagitis; Z79.82 Long term (current) use of aspirin; Z82.49 Family history of ischemic heart disease and other diseases of the circulatory system; Z79.899 Other long term (current) drug therapy ==

== ENCOUNTER → 2020-12-18 | Outpatient (CLI) | payer OTHER | LOC: SJCVCIMAG 08:39 | PROVIDERS: ATTEND Internal Medicine Cardiovascular Disease | DX: I65.23 Occlusion and stenosis of bilateral carotid arteries (principal); I08.1 Rheumatic disorders of both mitral and tricuspid valves; I10 Essential (primary) hypertension; E78.5 Hyperlipidemia, unspecified; Z78.0 Asymptomatic menopausal state; Z79.82 Long term (current) use of aspirin; Z79.899 Other long term (current) drug therapy ==

== ENCOUNTER → 2021-01-01 | Outpatient (CLI) | payer OTHER ==
[~2021-01-01] VITALS: Ht 154.9 cm; Wt 65.7 kg
[2021-01-01 08:44] VITALS: BP 122/67
--- NOTE | 2021-01-01 08:53 | NUR ---
Pain Clinic Assessment: 1. History of Osteoarthritis: B/L HIPS History of Rheumatoid Arthritis: DENIES 2. Height: 5 ft. 1 in. 154.9 cm. Weight: 144.8 lb. oz. 65.681 kg. Patient's BMI: 27.4 3. Vital Signs: BP: 122/67 Pulse: 70 Resp: 16 Temp: 02 Sat: 98 ECG Mon: 4. Pain Intensity: 8 5. Fall Risk: Dizziness: N Needs help standing or walking: N Fallen in the last 3 months: N Fall risk comments: 6. Patient on Blood Thinner: None 7. History of Hypertension: Y 8. Opioid Therapy greater than 6 weeks: N Opiate Contract Signed: 11/07/15 9. Risk Assessment Tool Provided: 6- MOD RISK 10. Functional Assessment Tool: 11. Recreational Drug Use: Unknown Drug Type: Tobacco Use: Never Smoker Tobacco Type: Amount or Packs/day: How Many Years: Alcohol Use: No Frequency: Quant:
== END | disposition home or self-care (01) ==
LOC: PAIN 08:00
PROVIDERS: ATTEND Anesthesiology Pain Medicine
DX: M54.16 Radiculopathy, lumbar region (principal); G89.29 Other chronic pain; M54.12 Radiculopathy, cervical region; I10 Essential (primary) hypertension; E78.5 Hyperlipidemia, unspecified; M19.90 Unspecified osteoarthritis, unspecified site; F32.9 Major depressive disorder, single episode, unspecified; K21.9 Gastro-esophageal reflux disease without esophagitis; Z98.890 Other specified postprocedural states; Z79.899 Other long term (current) drug therapy; Z90.710 Acquired absence of both cervix and uterus; Z96.641 Presence of right artificial hip joint; Z90.49 Acquired absence of other specified parts of digestive tract; Z85.828 Personal history of other malignant neoplasm of skin; Z98.41 Cataract extraction status, right eye; Z98.42 Cataract extraction status, left eye; Z96.1 Presence of intraocular lens

== ENCOUNTER → 2021-04-25 | Outpatient (CLI) | payer OTHER ==
[~2021-04-25] VITALS: Ht 154.9 cm; Wt 65.3 kg
[2021-04-25 10:31] VITALS: BP 136/91
--- NOTE | 2021-04-25 10:56 | NUR ---
Pain Clinic Assessment: 1. History of Osteoarthritis: B/L HIPS History of Rheumatoid Arthritis: DENIES 2. Height: 5 ft. 1 in. 154.9 cm. Weight: 144.0 lb. oz. 65.318 kg. Patient's BMI: 27.2 3. Vital Signs: BP: 136/91 Pulse: 71 Resp: 14 Temp: 02 Sat: 100 ECG Mon: 4. Pain Intensity: 6 5. Fall Risk: Dizziness: N Needs help standing or walking: N Fallen in the last 3 months: N Fall risk comments: 6. Patient on Blood Thinner: None 7. History of Hypertension: Y 8. Opioid Therapy greater than 6 weeks: N Opiate Contract Signed: 11/07/15 9. Risk Assessment Tool Provided: 6- MOD RISK 10. Functional Assessment Tool: 11. Recreational Drug Use: Current within past 3 mos Drug Type: MARIJUANA GUMMIES Tobacco Use: Never Smoker Tobacco Type: Amount or Packs/day: How Many Years: Alcohol Use: No Frequency: Quant:
== END | disposition home or self-care (01) ==
LOC: PAIN 09:13
PROVIDERS: ATTEND Anesthesiology Pain Medicine
DX: M54.16 Radiculopathy, lumbar region (principal); M54.12 Radiculopathy, cervical region; I10 Essential (primary) hypertension; E78.5 Hyperlipidemia, unspecified; F32.9 Major depressive disorder, single episode, unspecified; M19.90 Unspecified osteoarthritis, unspecified site; K21.9 Gastro-esophageal reflux disease without esophagitis; Z98.890 Other specified postprocedural states; Z79.899 Other long term (current) drug therapy; Z96.641 Presence of right artificial hip joint; Z90.710 Acquired absence of both cervix and uterus; Z90.49 Acquired absence of other specified parts of digestive tract; Z85.828 Personal history of other malignant neoplasm of skin; Z98.41 Cataract extraction status, right eye; Z98.42 Cataract extraction status, left eye